=== PATIENT | female | born 1960 | race Caucasian/White ===

== ENCOUNTER 2023-12-23 08:26 | Outpatient (OUT) | payer OTHER, SELFPAY ==
--- NOTE | 2023-12-23 08:33 | MM_ITS ---
Patient Name: TAYLER BUTLER MR#: [id number] : 1960 Exam Date: 12/23/2023 Ordering Doctor: DR Fercho Villalta RADIOLOGY REPORT PROCEDURE: MM TOMOSYNTHESIS SCREENING BI COMPARISON: MG MAMM SCREEN ANDRÉS W CAD, 06/19/2019. MG MAMM SCREEN ANDRÉS W CAD, 01/13/2015. INDICATIONS: Screening Calculator Name NCI Breast Cancer Risk Assessment Tool 5 Year Breast Cancer Risk 2.10% Lifetime Breast Cancer Risk 9.40% Personal Breast Cancer No Personal Ovarian Cancer No Treatments None Family Cancers Mother with skin cancer at age 60. LOCATION: [facility] BREAST COMPOSITION: The breasts are heterogeneously dense,which may obscure small masses. FINDINGS: DIAGNOSTIC CATEGORY 2--BENIGN FINDING. NO CHANGE FROM COMPARISON. Scattered benign-appearing calcifications are present. Scattered benign-appearing lymph nodes are present. RIGHT BREAST: No significant suspicious finding. LEFT BREAST: No significant suspicious finding. RECOMMENDATIONS: ROUTINE MAMMOGRAM AND CLINICAL EVALUATION IN 12 MONTHS. PLEASE NOTE: A NORMAL MAMMOGRAM DOES NOT EXCLUDE THE POSSIBILITY OF BREAST CANCER. A CLINICALLY SUSPICIOUS PALPABLE LUMP SHOULD BE BIOPSIED. Dictated by: Zhao Myles MD on 12/23/2023 at 10:01 Approved by: Zhao Myles MD on 12/23/2023 at 10:03
== END 2023-12-23 08:27 | disposition home or self-care (01) ==
LOC: MAMMO 08:27
PROVIDERS: PCP Family Medicine; Visit Provider Family Medicine
DX: Z12.31 Encounter for screening mammogram for malignant neoplasm of breast (principal); Z80.8 Family history of malignant neoplasm of other organs or systems
CPT/HCPCS: 77063; 77067

== ENCOUNTER 2025-07-29 09:32 | Outpatient (OUT) | payer OTHER, SELFPAY ==
--- NOTE | 2025-07-29 09:37 | MM_ITS ---
Patient Name: TAYLER BUTLER MR#: [id number] : 1960 Exam Date: 07/29/2025 Ordering Doctor: DR MATY UP RADIOLOGY REPORT PROCEDURE: MM TOMOSYNTHESIS SCREENING BI COMPARISON: MM TOMOSYNTHESIS SCREENING BI, 12/23/2023. MG MAMM SCREEN ANDRÉS W CAD, 06/19/2019. MG MAMM SCREEN ANDRÉS W CAD, 07/21/2012. INDICATIONS: Screening Calculator Name NCI Breast Cancer Risk Assessment Tool 5 Year Breast Cancer Risk 2.20% Lifetime Breast Cancer Risk 8.90% Personal Breast Cancer No Personal Ovarian Cancer No Treatments None Family Cancers Mother with skin cancer at age 60. LOCATION: [facility] [place] BREAST COMPOSITION: The breasts are heterogeneously dense, which may obscure small masses. FINDINGS: RIGHT BREAST: No significant suspicious finding. LEFT BREAST: No significant suspicious finding. DIAGNOSTIC CATEGORY 1--NEGATIVE. RECOMMENDATIONS: ROUTINE MAMMOGRAM AND CLINICAL EVALUATION IN 12 MONTHS. Dictated by: Yariel Roberto DO on 07/29/2025 at 13:02 Approved by: Yariel Roberto DO on 07/29/2025 at 13:05
--- OUTSIDE RECORDS SUMMARY | 2025-07-29 09:43 | XMS_ITS | CCD ---
Author Organization [facility] CliniSytn Care Team Providers Care Sericulture Teacher Name Role Phone MARYJANE, DR BRANTLEY Primary Care Unavailable BENITO, DR COELLO Admitting Unavailable BENITO, DR COELLO Attending Unavailable BENITO, DR COELLO Consulting Unavailable KUNS, DR BRANTLEY Primary Care Unavailable BENITO, DR COELLO Admitting Unavailable BENITO, DR COELLO Attending Unavailable BENITO, DR COELLO Consulting Unavailable ZIEBER, DR HUMZA Zamarripa Consulting Unavailable KUNS, DR BRANTLEY Admitting Unavailable KUNS, DR BRANTLEY Attending Unavailable KUNS, DR BRANTLEY Consulting Unavailable KUNS, DR BRANTLEY Primary Care Unavailable PAY, DR RONQUILLO Attending Unavailable PAY, DR RONQUILLO Consulting Unavailable PAY, DR RONQUILLO Admitting Unavailable Bernot, Linda Consulting Unavailable Kuns, Fercho Unavailable Kuns, DO Fercho Primary Care Provider Maryjane, DO Brantley Attending Provider Kuns, Fercho Primary Care Unavailable Kuns, Fercho Attending Unavailable Kuns, Fercho Admitting Unavailable Kuns, Fercho Attending Unavailable Kuns, Fercho Admitting Unavailable Kuns, Fercho Primary Care Unavailable Kuns, Fercho Attending Unavailable Kuns, Fercho Admitting Unavailable Kuns, Fercho Primary Care Unavailable Kuns, Fercho Attending Unavailable Kuns, Fercho Admitting Unavailable Kuns, Fercho Primary Care Unavailable Kuns, DO Fercho Primary Care Provider Kuns, DO Brantley Attending Provider Kuns, DO Frecho Primary Care Provider Kuns, DO Fercho Attending Provider David Aguila MD, Dieter Unavailable Unavailabl alexandra Umana MD, Dieter Unavailable Unavailabl e David Aguila MD, Dieter Unavailable Unavailabl e David Aguila MD, Dieter Unavailable Unavailabl e David Aguila MD, Dieter Unavailable Unavailabl e David Aguila MD, Dieter Unavailable Unavailabl e David Aguila MD, Dieter Unavailable Unavailabl e David Aguila MD, Dieter Unavailable Unavailabl e David Aguila MD, Dieter Unavailable Unavailabl e Al Shweiki, Dieter Attending Unavailable Al Shweiki, Dieter Referring Unavailable Al Shweiki, Dieter Attending Unavailable Al Shweiki, Dieter Referring Unavailable Al Shweiki, Dieter Attending Unavailable Al Shweiki, Dieter Attending Unavailable Al Shweiki, Dieter Referring Unavailable Al Shweiki, Dieter Attending Unavailable Al Shweiki, Dieter Referring Unavailable Al Shweiki, Dieter Attending Unavailable Al Shweiki, Dieter Referring Unavailable Al Shweiki, Dieter Attending Unavailable Al Shweiki, Dieter Attending Unavailable Al Shweiki, Dieter Attending Unavailable Al Shweiki, Dieter Referring Unavailable Al Shweiki, Dieter Attending Unavailable Al Shweiki, Dieter Attending Unavailable Al Shweiki, Dieter Referring Unavailable Al Shweiki, Dieter Attending Unavailable Al Shweiki, Dieter Referring Unavailable Fercho Wesley DO Primary Care Provider Fercho Wesley DO Attending Provider Medications Current Medications MedicationDrug Class(es)DatesSig (Normalized)Sig (Original)AREDS 2 BUCCAL TABLET (9 sources)AREDS 2 BUCCAL TABLET - Activeascorbic acid 226 mg / beta carotene 28374 unt / cuprous oxide 0.8 mg / dl-alpha tocopheryl unt / zinc oxide 34.8 mg oral capsule (1 source)Vitamin CStart: 45-24-4290wwye 1 capsule by mouth twice daily azithromycin 250 mg oral tablet (3 sources)Macrolide AntimicrobialStart: 81-96-3831Ojzwahbbtsbh (Zithromax Z- Matthew) 250 mg tablet Active 0 PO .COMPLEX 6 June 29, 2025 12:00am For 250 mg dose pack: take 500 mg today (day 1), then 250 mg for 4 days (days 2-5) PO Complies with drug therapyStart: 22-08-1162Xxgrsuruk Z-Matthew 250 MG as directed Orally 27 Mar, 2023 Activebenzonatate 200 mg oral capsule (1 source)Non-narcotic AntitussiveStart: 43-26-3678mgey 1 capsule by mouth twice daily as needed for coughBenzonatate 200 mg capsule Active 200 MG PO Twice daily as needed for cough 60 June 29, 2025 12:00am Complies with drug therapy betamethasone 0.001 mg/mg topical ointment (2 sources)CorticosteroidStart: 87-30-4639Gtgzshjrpqpjb Valerate 0.1 % 1 application Externally Once a day Jan, Active4 ml bevacizumab 25 mg/ml injection (6 sources)Vascular Endothelial Growth Factor InhibitorStart: 59-02-0892Htojfff 25 mg/mL intravenous solution Direct Patient Administration Only - Active OUComment on above:OUBiotin (2 sources)Biotin ActiveCalcium + D 500-1000-40 MG-UNT-MCG (2 sources)Calcium + D 500-1000-40 MG-UNT-MCG as directed Orally Activecalcium carbonate 1500 mg / cholecalciferol 0.01 mg oral tablet (9 sources)Vitamin DCalcium 600 + D(3) 600 mg-10 mcg (400 unit) tablet - Active calcium carbonate 1250 mg / cholecalciferol 1000 unt / vitamin k 0.4 mg chewable tablet (6 sources)Vitamin DStart: 64-11-1113Dnkvcbz + D 500-1000-40 MG-UNT-MCG as directed Orally ActiveEye Vitamins - (4 sources)Eye Vitamins - as directed Orally ActivemethylPREDNISolone 4 mg oral tablet (1 source)CorticosteroidStart: 22-90-3192Fjulabjvrzpyyebeci (Medrol (Matthew)) 4 mg tablets,dose pack Active 4 MG PO As Directed June 29, 2025 12:00am medrol dose pack instructions Complies with drug therapyMulti For Her 18 mg iron-600 mcg-80 mcg tablet (9 sources)Multi For Her 18 mg iron-600 mcg-80 mcg tablet - ActiveMultiple Minerals - (4 sources)Multiple Minerals - as directed Orally ActiveMultivitamin (Daily Multi-Vitamin) tablet (4 sources)Start: 12-69-2283nrgb 1 tablet by mouth once dailyStart: 10-23-2023 take 1 tablet by mouth once dailyMultivitamin (Daily Multi-Vitamin) tablet Active 1 TAB PO Daily October 23, 2023 1:00amMultivitamin preparation (2 sources)Multi Vitamin Activenaproxen sodium 220 mg oral tablet (9 sources)Nonsteroidal Anti-inflammatory DrugStart: 10-23-2023 End: 37-57-3055msmf 1 tablet by mouth every twelve hours at mealtime as needed Naproxen Sodium 220 mg tablet Active 220 MG PO Every 12 hours June 29, 2025 1:09pm FreeTextSi tablet with food or milk as needed Orally every 12 hrs; Note: Source Status: Taking; Provider: Maryjane Brantley ( ) Complies with drug therapytake 1 tablet by mouth every twelve hours at mealtime as neededAleve 220 MG 1 tablet with food or milk as needed Orally every 12 hrs ActivepredniSONE 20 mg oral tablet (4 sources)Start: 78-62-1205oxgwpaULUC 20 MG 1 tablet with food or milk Orally one tab twice a day x 5 days , 1 tab every day x5 days for 10 days Oct, ActiveVitamins A,C,E-Rhxg-Mjvuzi (Icaps Areds) 4,296 mcg-226 mg-90 mg capsule (3 sources)Start: 16-84-7297javi 1 capsule by mouth twice dailyVitamins A,C,M-Hmcl-Tyepwq (Icaps Areds) 4,296 mcg-226 mg-90 mg capsule Active 1 CAP PO Twice dailyOctober 24, 2023 1:00am Completed/Discontinued Medications MedicationDrug Class(es)DatesSig (Normalized)Sig (Original)betamethasone 0.5 mg/ml / clotrimazole 10 mg/ml topical cream (8 sources)Azole Antifungal, CorticosteroidStart: 10-24-2023 End: 04-08-4024Frhziwdfaycj-Betamethasone 1-0.05 % cream Discontinued 1 APPLIC TOPICAL Twice daily 45 2 October 2:23pm December 19, 2023 12:07pm Rash Rash and other nonspecific skin eruptionphentermine hydrochloride 37.5 mg oral tablet (20 sources)Sympathomimetic Amine AnorecticStart: 10-24-2023 End: 80-75-1197gcvf 1 tablet by mouth once daily 30 minutes after breakfast Phentermine (Adipex-P) 37.5 mg tablet Discontinued 37.5 MG PO Daily 30 30 0 December 19, 2023 12:18pm January 21, 2024 2:47pm Class 1 obesity Obesity, unspecified must administer 30 minutes before or 1-2 hours after breakfast Problems Active Problems Problem ClassificationProblemDateDocumented DateEpisodic/ChronicAbdominal pain (9 sources)Right upper quadrant pain; Translations: [Right upper quadrant pain] Onset: 29-05-5912JktejidxPeofvyl dysrhythmias (1 source)Tachycardia, unspecified; Translations: [TACHYCARDIA UNSPECIFIED] Onset: 70-50-9747KwfwtmoqVyvdkmoe (20 sources)Age-related nuclear cataract, bilateral; Translations: [Age-related nuclear cataract of both eyes]Onset: 09-71-5379NbccxczNqfeyviz mellitus without complication (5 sources)Hyperglycemia, unspecified; Translations: [Hyperglycemia]Onset: 82-97-7038VtzjryafSjvtiftmj of lipid metabolism (15 sources)Hyperlipidemia; Translations: [Hyperlipidemia, unspecified]Onset: 98-20-5300SavhqfzLtutp and electrolyte disorders (1 source)Dehydration; Translations: [DEHYDRATION]Onset: 10-92-4034Huwkzixv Genitourinary symptoms and ill-defined conditions (2 sources)Female genital organ symptoms; Translations: [Unspecified condition associated with female genital organs and menstrual cycle]EpisodicImmunizations and screening for infectious disease (4 sources)Raised antibody titer; Translations: [RAISED ANTIBODY TITER]Onset: 41-81-9879IqbzxesfPpnyva and vomiting (1 source)Nausea; Translations: [NAUSEA]Onset: 01-93-2334BvqcibyuBbymttuow of unspecified nature or uncertain behavior (2 sources)Neoplasm of uncertain behavior of skin; Translations: [Neoplasm of uncertain behavior of skin]02-56-5588JsbpjbgrBoyjlzjfuzg deficiencies (10 sources)Vitamin D deficiency; Translations: [Vitamin D deficiency, unspecified]Onset: 61-67-1499ItaubjbQheiyardrjekjz (8 sources)Localized, primary osteoarthritis of the hand; Translations: [Bilateral primary osteoarthritis of first carpometacarpal joints]ChronicOther connective tissue disease (4 sources)Pain in right arm; Translations: [Pain in right arm]EpisodicOther connective tissue disease (4 sources)Pain in right foot; Translations: [Pain in right foot]EpisodicOther ear and sense organ disorders (1 source)Impacted cerumen, left earEpisodicOther eye disorders (14 sources)Vitreous degeneration, bilateral; Translations: [PVD (posterior vitreous detachment), both eyes]Onset: 45-94-9089UazwkhtFolms eye disorders (20 sources)Vitreous degeneration, right eyeChronicOther eye disorders (20 sources)Vitreous degenerationChronicOther liver diseases (4 sources)Steatosis of liver; Translations: [Fatty (change of) liver, not elsewhere classified]05-95-4907LgokpeqGkdkh liver diseases (2 sources)Fatty (change of) liver, not elsewhere classified; Translations: [Other chronic nonalcoholic liver disease]98-86-3072TisbariLjnro liver diseases (2 sources)Elevated liver enzymes level; Translations: [Abnormal levels of other serum enzymes]EpisodicOther liver diseases (3 sources)Abnormal levels of other serum enzymes; Translations: [Abnormal levels of other serum enzymes]Onset: 81-38-3372WetauwmeFavpa lower respiratory disease (3 sources)Shortness of breath; Translations: [SHORTNESS OF BREATH]Onset: 25-22-4839MkxudhxqGgurb lower respiratory disease (1 source)Dyspnea, unspecified; Translations: [DYSPNEA UNSPECIFIED]Onset: 47-21-3560NbemivgbNrjih lower respiratory disease (4 sources)Solitary nodule of lung; Translations: [Solitary pulmonary nodule] EpisodicOther lower respiratory disease (1 source)Cough; Translations: [Cough]09-47-8637BpdglqppSarae non-traumatic joint disorders (5 sources)Pain in right knee; Translations: [PAIN IN RIGHT KNEE]Onset: 54-21-7715RylrimhrJvgth non-traumatic joint disorders (1 source)Shoulder pain; Translations: [Pain in left shoulder]EpisodicOther non- traumatic joint disorders (3 sources)Pain in left shoulder; Translations: [Left shoulder pain]Episodic Other nutritional; endocrine; and metabolic disorders (11 sources)Obesity, unspecified; Translations: [Obesity, unspecified]Onset: 807171-49-7083GdfbcuuYemcc nutritional; endocrine; and metabolic disorders (4 sources)Obese class I; Translations: [Obesity, unspecified]32-22-4531Ajaiiob Other nutritional; endocrine; and metabolic disorders (3 sources)Obesity; Translations: [Obesity, unspecified]84-06-8131AdbxdmjMkbnu nutritional; endocrine; and metabolic disorders (3 sources)Body mass index (BMI) 29.0-29.9, adult; Translations: [Body Mass Index 29.0-29.9, adult]79-04-3184NufdrdwmTxzlv nutritional; endocrine; and metabolic disorders (5 sources)Overweight in adulthood with body mass index of 25 or more but less than 30; Translations: [Body mass index (BMI) 28.0-28.9, adult]12-19-2023 EpisodicOther nutritional; endocrine; and metabolic disorders (2 sources)Body mass index (BMI) 28.0-28.9, adult; Translations: [Body Mass Index 28.0-28.9, adult]08-05-6701QtthyvmfKayrj nutritional; endocrine; and metabolic disorders (3 sources)Body mass index (BMI) 27.0-27.9, adult; Translations: [Body Mass Index 27.0-27.9, adult]20-57-8034GdwmukqdVanec screening for suspected conditions (not mental disorders or infectious disease) (10 sources)Other specified abnormal findings of blood chemistry; Translations: [Patient encounter status]Onset: 56-40-9958BdddizwaEdkya skin disorders (4 sources)Eruption; Translations: [Rash and other nonspecific skin eruption] 72-50-5948KlmlckzcRobzh skin disorders (2 sources)Rash and other nonspecific skin eruption; Translations: [Rash and other nonspecific skin eruption]45-49-7199WatavjzcGmpxykja codes; unclassified (1 source)Family history of malignant neoplasm of digestive organsEpisodic Residual codes; unclassified (4 sources)Past history of procedure; Translations: [Personal history of other medical treatment]06-17-8674ClfxgzmkWfigfyq detachments; defects; vascular occlusion; and retinopathy (20 sources)Retinal edema; Translations: [Retinal edema]Onset: 12-15-2014 12-89-4222KcnhwqwNmmzrbv and strains (4 sources)Strain of other muscles, fascia and tendons at shoulder and upper arm level, unspecified arm, initial encounter; Translations: [Supraspinatus tendon tear]EpisodicUnclassified (8 sources)AMD (chief complaint)Onset: 12-01-2024 Resolved: 73-84-8493Axjkduvewkbh (12 sources)Exudative ARMD (chief complaint)Onset: 12-29-2024 Resolved: 57-80-1427Wzklgglsdmos (1 source)N94.9 - Unspecified condition associated with female genital organs and menstrual cycleViral infection (1 source)COVID-19; Translations: [COVID-19]Onset: 10-03-2021 Past or Other Problems Problem ClassificationProblemDateDocumented DateEpisodic/ChronicOther connective tissue disease (1 source)Pain in right foot; Translations: [PAIN IN RIGHT FOOT]Onset: 51-05-8400SacdzahyYnhgv non-traumatic joint disorders (3 sources)Pain in unspecified knee; Translations: [PAIN IN UNSPECIFIED KNEE] Onset: 37-27-1493DocqpeskErcji non-traumatic joint disorders (1 source)Effusion, right ankle; Translations: [EFFUSION RIGHT ANKLE]Onset: 32-84-5785TiehahiiVbbgi non-traumatic joint disorders (1 source)Pain in left knee; Translations: [PAIN IN LEFT KNEE]Onset: 02-15-2021 EpisodicUnclassified (1 source)Acute cough R05.1Unclassified (9 sources)retinal neovascularization with edema (chief complaint) reports no visual changes (chief complaint)Onset: 80-67-6579Exmplwujfgry (9 sources)CNV (chief complaint) stable vision (chief complaint)Onset: 19-75-8976Djmnloqzjuqt (9 sources)CNV (chief complaint) trouble focusing (chief complaint)Onset: 68-49-7942Qiavcwzvpdmu (9 sources)CNV (chief complaint) stable vision without distortion (chief complaint) stable vision (chief complaint)Onset: 30-22-2157Spesukrjvyhw (9 sources)CNV (chief complaint) reports no vision changes (chief complaint) Onset: 09-88-4197Qwkexuzusltu (9 sources)SRNVM (chief complaint) trouble focusing (chief complaint)Onset: 71-59-8308Netaaccuqubo (9 sources)CNV with retinal edema (chief complaint) increase in vision (chief complaint)Onset: 37-76-8106Bnipuiodhbxk (9 sources)CNV (chief complaint) no changes (chief complaint)Onset: 01-19-2015 Unclassified (9 sources)referred for SRNV (chief complaint) decreased vision (chief complaint)Onset: 12-15-2014 Results Test NameValueInterpretationReference RangeFacilityECG 12 lead ECGon 10-24-2023 ECG 12 [facility] [place] [address] [place] [address] Electrocardiograph Report Signed Patient: Meliza Best MR#: [id number] 95 : 1960 Acct:[id number] Age/Sex: 63 / F ADM Date: 10/24/23 Loc: EKGCAST Room: Type: [facility] Attending Dr: Fercho Wesley DO Ordering Provider: Fercho Wesley DO Date of Service: 10/24/2303/11/1308 ECG/ECG 12 lead ECG: E66.9 - Obesity, unspecified Copies to: Test Reason : Blood Pressure : / mmHG Vent. Rate : 070 BPM Atrial Rate : 070 BPM P-R Int : 164 ms QRS Dur : 084 ms QT Int : 392 ms P-R-T Axes : 076 085 074 degrees QTc Int : 423 ms Normal sinus rhythm Normal ECG No previous ECGs available Confirmed by Fercho Wesley ([id number]) on 10/24/2023 1:35:50 PM Referred By: Electronically Signed By:Fercho Wesley Transcribed By: MUS Signed By Fercho Wesley DO 10/24/23 1335NormSamaritan HospitalAlanine aminotransferase [Enzymatic activity/volume] in Serum or PlasmaOrdered By: Fercho Wesley on 06-21-0148HLG [Catalytic activity/Vol]36 U/L7-52[facility], IncAlbumin [Mass/volume] in Serum or Plasma by Bromocresol green (BCG) dye binding metho Ordered By: Fercho Wesley on 62-49-5084Swjrvjp BCG dye [Mass/Vol]4.3 g/dL3.5-5.7 [facility], IncAlkaline phosphatase [Enzymatic activity/volume] in Serum or PlasmaOrdered By: Fercho Wesley on 93-74-9331CUE [Catalytic activity/Vol]136 U/T57-858GxmpbojbkSelect Medical Specialty [facility], IncAspartate aminotransferase [Enzymatic activity/volume] in Serum or PlasmaOrdered By: Fercho Wesley on 51-11-9751SIG [Catalytic activity/Vol]25 U/L39-24AhbcajsdtSelect Medical Specialty Hospital [facility], IncBilirubin.total [Mass/volume] in Serum or PlasmaOrdered By: Fercho Wesley on 99-12-3529Rxktciycp [Mass/Vol]0.5 mg/dL0.3-1.0[facility], IncCalcium [Mass/volume] in Serum or PlasmaOrdered By: Fercho Wesley on 07-68-2431Xtqrjpf [Mass/Vol]9.9 mg/dL8.6-10.3FUniversity Hospitals Elyria Medical Center Carbon dioxide, total [Moles/volume] in Serum or PlasmaOrdered By: Fercho Wesley on 45-83-7342BR6 [Moles/Vol]31.5 mmol/L21.0-31.0[facility] Chloride [Moles/volume] in Serum or PlasmaOrdered By: Fercho Wesley on 10-18-2023 Chloride [Moles/Vol]104 mmol/V15-984XlcaxpuubSelect Medical Specialty Hospital - [place], IncCholesterol [Mass/volume] in Serum or PlasmaOrdered By: Fercho Wesley on 16-86-2381Tzbhaaglvfi [Mass/Vol]216 mg/mM901-932EjghtruyySelect Medical Specialty Hospital - [place], IncComment on above: Chol less than 200 mg/dl low riskChol 201-239 mg/dl borderline riskChol 240 mg/dl and greater high riskCholesterol in LDL Calc [Mass/Vol]Ordered By: Fercho Wesley on 00-58-2867Iexwpowntgs in LDL [Mass/Vol]134 mg/dL0-100[facility], IncComment on above:LDL ATP III CLASSIFICATIONLDL less than 100 mg/dL OptimalLDL 100-129 mg/dL Near or above amepzlyCSZ504-948 mg/dL Borderline highLDL 160-189 mg/dL HighLDL greater than 189 mg/dL Very highCholesterol in VLDL Calc [Mass/Vol]Ordered By: Fercho Wesley on 63-22-1527Ruqiytfplby in VLDL [Mass/Vol]26 mg/dLSelect Medical Specialty Hospital [facility], IncComprehensive Metabolic Panel on 83-46-5484Vchmdmy [Mass/Vol]4.3 g/dLNormal3.5-5.7FUniversity Hospitals Elyria Medical CenterComment on above:Order Comment: Reason for Exam Elevated liver enzymes Reason for Exam Hyperlipidemia, unspecified hyperlipidemia type;Elevated livPerformed By: #### CMP, LIPID #### [facility] [address] [id number] USAAlbumin/Globulin [Mass ratio]1.6 {ratio}NormalSelect Medical Specialty Hospital - [facility], IncComment on above:Order Comment: Reason for Exam Elevated liver enzymes Reason for Exam Hyperlipidemia, unspecified hyperlipidemia type;Elevated livPerformed By: #### CMP, LIPID #### [facility] [address] [place] [address] USAALP [Catalytic activity/Vol]136 U/MDvzi82-585QgihkusgdSelect Medical Specialty Hospital - [facility], IncComment on above:Order Comment: Reason for Exam Elevated liver enzymes Reason for Exam Hyperlipidemia, unspecified hyperlipidemia type;Elevated livPerformed By: #### CMP, LIPID #### [facility] [address] [place] [address] USAALT [Catalytic activity/Vol]36 U/LNormal7-52[facility], IncComment on above:Order Comment: Reason for Exam Elevated liver enzymes Reason for Exam Hyperlipidemia, unspecified hyperlipidemia type;Elevated livPerformed By: #### CMP, LIPID #### [facility] [address] [place] [address] USAAnion gap [Moles/Vol]9.1 mmol/LNormal6.0-15.0[facility], IncComment on above:Order Comment: Reason for Exam Elevated liver enzymes Reason for Exam Hyperlipidemia, unspecified hyperlipidemia type;Elevated livPerformed By: #### CMP, LIPID #### [facility] [address] [place] [address] USAAST [Catalytic activity/Vol]25 U/WOhvoyi59-01ObyghzlurSelect Medical Specialty Hospital - [facility], IncComment on above:Order Comment: Reason for Exam Elevated liver enzymes Reason for Exam Hyperlipidemia, unspecified hyperlipidemia type;Elevated livPerformed By: #### CMP, LIPID #### [facility] [address] [place] [address] USABilirubin [Mass/Vol]0.5 mg/dLNormal0.3-1.0[facility], IncComment on above:Order Comment: Reason for Exam Elevated liver enzymes Reason for Exam Hyperlipidemia, unspecified hyperlipidemia type;Elevated livPerformed By: #### CMP, LIPID #### [facility] [address] [place] [address] USACalcium [Mass/Vol]9.9 mg/dLNormal8.6-10.3FUniversity Hospitals Elyria Medical CenterComment on above:Order Comment: Reason for Exam Elevated liver enzymes Reason for Exam Hyperlipidemia, unspecified hyperlipidemia type;Elevated livPerformed By: #### CMP, LIPID #### [facility] [address] [place] [address] USAChloride [Moles/Vol]104 mmol/XUjxqnh96-113EcricvwyzSelect Medical Specialty Hospital - [facility], IncComment on above:Order Comment: Reason for Exam Elevated liver enzymes Reason for Exam Hyperlipidemia, unspecified hyperlipidemia type;Elevated livPerformed By: #### CMP, LIPID #### [facility] [address] [place] [address] USACO2 [Moles/Vol]31.5 mmol/LHigh21.0-31.0[facility], IncComment on above:Order Comment: Reason for Exam Elevated liver enzymes Reason for Exam Hyperlipidemia, unspecified hyperlipidemia type;Elevated livPerformed By: #### CMP, LIPID #### [facility] [address] [place] [address] USACreatinine [Mass/Vol]0.95 mg/dLNormal0.60-1.20[facility], IncComment on above:Order Comment: Reason for Exam Elevated liver enzymes Reason for Exam Hyperlipidemia, unspecified hyperlipidemia type;Elevated livPerformed By: #### CMP, LIPID #### [facility] [address] [id number] USAGFR/1.73 sq M.predicted MDRD (S/P/Bld) [Vol rate/Area] mL/min/{1.73_m2}NormalSelect Medical Specialty Hospital - [facility], IncComment on above:Order Comment: Reason for Exam Elevated liver enzymes Reason for Exam Hyperlipidemia, unspecified hyperlipidemia type;Elevated livPerformed By: #### CMP, LIPID #### [facility] [address] [place] [address] USAGlobulin (S) [Mass/Vol]2.7 g/dLNormalSelect Medical Specialty Hospital - [place], IncComment on above:Order Comment: Reason for Exam Elevated liver enzymes Reason for Exam Hyperlipidemia, unspecified hyperlipidemia type;Elevated livPerformed By: #### CMP, LIPID #### [facility] [address] [id number] USAGlucose [Mass/Vol]94 mg/mZNwsqsl24-343KwgwylhokSelect Medical Specialty Hospital - [facility], IncComment on above:Order Comment: Reason for Exam Elevated liver enzymes Reason for Exam Hyperlipidemia, unspecified hyperlipidemia type;Elevated livResult Comment: Random Glucose Reference Range is dependent on time and content of last meal. Glucose of more than 200 mg/dL in a nonstressed, ambulatory subject supports the diagnosis of Diabetes Mellitus. ADA recommended reference rangePerformed By: #### CMP, LIPID #### [facility] [address] [place] [address] USAPotassium [Moles/Vol]4.6 mmol/LNormal3.5-5.1FUniversity Hospitals Elyria Medical CenterComment on above:Order Comment: Reason for Exam Elevated liver enzymes Reason for Exam Hyperlipidemia, unspecified hyperlipidemia type;Elevated livPerformed By: #### CMP, LIPID #### [facility] [address] [id number] USAProtein [Mass/Vol]7.0 g/dLNormal6.4-8.9[facility], IncComment on above:Order Comment: Reason for Exam Elevated liver enzymes Reason for Exam Hyperlipidemia, unspecified hyperlipidemia type;Elevated livPerformed By: #### CMP, LIPID #### [facility] [address] [id number] USASodium [Moles/Vol]140 mmol/LIekyuj603-295EpvpnfggeSelect Medical Specialty Hospital [facility], IncComment on above:Order Comment: Reason for Exam Elevated liver enzymes Reason for Exam Hyperlipidemia, unspecified hyperlipidemia type;Elevated livPerformed By: #### CMP, LIPID #### [facility] [address] [phone] USAUrea nitrogen [Mass/Vol]23 mg/dLNormal7-25[facility], IncComment on above:Order Comment: Reason for Exam Elevated liver enzymes Reason for Exam Hyperlipidemia, unspecified hyperlipidemia type;Elevated livPerformed By: #### CMP, LIPID #### [facility] [address] [place] [address] USACreatinine [Mass/volume] in Serum or PlasmaOrdered By: Fercho Wesley on 82-67-7425Ypnxwwbcjw [Mass/Vol]0.95 mg/dL0.60-1.20[facility], IncGlobulin Calc (S) [Mass/Vol]Ordered By: Fercho Wesley on 45-34-1689Wkaprsdn (S) [Mass/Vol]2.7 g/dLSelect Medical Specialty Hospital [facility], Inc Glucose [Mass/volume] in Serum or PlasmaOrdered By: Fercho Wesley on 10-18-2023 Glucose [Mass/Vol]94 mg/fM80-744ZqvuzgogmSelect Medical Specialty Hospital [facility], IncComment on above:ADA recommended reference rangeRandom Glucose Reference Range is dependent on time and content of last meal. Glucose of more than 200 mg/dL in a nonstressed, ambulatory subject supports the diagnosisof Diabetes Mellitus.Lipid Panelon 20-36-8816Hvhvibawmch [Mass/Vol]216 mg/kZWchx353-770CsnaoccbySelect Medical Specialty Hospital [facility], IncComment on above:Order Comment: Reason for Exam Elevated liver enzymes Reason for Exam Hyperlipidemia, unspecified hyperlipidemia type;Elevated livResult Comment: Chol less than 200 mg/dl low risk Chol 201-239 mg/dl borderline risk Chol 240 mg/dl and greater high riskPerformed By: #### CMP, LIPID #### [facility] [address] [place] [address] USACholesterol in HDL [Mass/Vol]56 mg/aWPdcajx23-65IsxxnrujxSelect Medical Specialty Hospital [facility], IncComment on above:Order Comment: Reason for Exam Elevated liver enzymes Reason for Exam Hyperlipidemia, unspecified hyperlipidemia type;Elevated livResult Comment: HDL CHOL ATP-III CLASSIFICATION Cardiovascular Risk HDL > or equal to 60 mg/dL LOW HDL < 40 mg/dL HIGHPerformed By: #### CMP, LIPID #### [facility] [address] [place] [address] USACholesterol.total/Cholesterol in HDL [Mass ratio]3.9 {ratio}Normal<5.0[facility], IncComment on above:Order Comment: Reason for Exam Elevated liver enzymes Reason for Exam Hyperlipidemia, unspecified hyperlipidemia type;Elevated livResult Comment: PERFORMED BY: [address] [address] PATHOLOGIST HOUSEKEEPING WORKER MARCO VILLALPANDO M.D.Performed By: #### CMP, LIPID #### [facility] [address] [place] [address] USALDL Cholesterol,Hamcgbqwtu057 mg/dLHigh0-100[facility], IncComment on above:Order Comment: Reason for Exam Elevated liver enzymes Reason for Exam Hyperlipidemia, unspecified hyperlipidemia type;Elevated livResult Comment: LDL ATP III CLASSIFICATION LDL less than 100 mg/dL Optimal LDL 100-129 mg/dL Near or above optimal LDL 130-159 mg/dL Borderline high LDL 160-189 mg/dL High LDL greater than 189 mg/dL Very highPerformed By: #### CMP, LIPID #### [facility] [address] [place] [address] USATriglyceride w/Lmxmdw771 mg/dLNormal0-149[facility], IncComment on above:Order Comment: Reason for Exam Elevated liver enzymes Reason for Exam Hyperlipidemia, unspecified hyperlipidemia type;Elevated livResult Comment: TRIG ATP III CLASSIFICATION TRIG less than 150 mg/dL Normal TRIG 150-199 mg/dL Borderline high TRIG 200-500 mg/dL High TRIG greater than 500 mg/dL Very high Standard traceable to the Center for Disease Conrtrol and Prevention (CDC) test method.Performed By: #### CMP, LIPID #### [facility] [address] [place] [address] USAVLDL DPISGKOQGTG84 mg/dLNoPremier Health Atrium Medical CenterComment on above:Order Comment: Reason for Exam Elevated liver enzymes Reason for Exam Hyperlipidemia, unspecified hyperlipidemia type;Elevated livPerformed By: #### CMP, LIPID #### [facility] [address] [place] [address] USANo Panel InformationOrdered By: Fercho Wesley on 10-18-2023 Estimated GFR (CKD-EPI)> 60.0 mL/MinSelect Medical Specialty Hospital - [facility], IncPharmacy Creatinine Clearance (ChemN/AFUniversity Hospitals Elyria Medical CenterPotassium [Moles/volume] in Serum or PlasmaOrdered By: Fercho Wesley on 05-24-6828Furdkwvzg [Moles/Vol]4.6 mmol/L3.5-5.1FUniversity Hospitals Elyria Medical CenterProtein [Mass/volume] in Serum or PlasmaOrdered By: Fercho Wesley on 34-49-3626Uxaxhdv [Mass/Vol]7.0 g/dL6.4-8.9[facility] Citizens Hospitalerum or plasma albumin/globulin mass ratioOrdered By: Fercho Wesley on 22-80-0694Iodaqed/Globulin [Mass ratio]1.6 {ratio}[facility] Hospitalerum or plasma anion gap determinationOrdered By: Fercho Wesley on 74-69-3414Fxrgo gap [Moles/Vol]9.1 mmol/L6.0-15.0[facility] Citizens Hospitalerum or plasma high density lipoprotein (HDL) cholesterol measurementOrdered By: Fercho Wesley on 10-18-2023 Cholesterol in HDL [Mass/Vol]56 mg/tJ52-94EqxdwnrqtSelect Medical Specialty Hospital [facility], Inc Comment on above:HDL CHOL ATP-III CLASSIFICATION Cardiovascular RiskHDL > or equal to 60 mg/dL LOWHDL < 40 mg/dL HIGHSerum or plasma total cholesterol/high density lipoprotein (HDL) cholesterol mass ratOrdered By: Fercho Wesley on 69-61-9057Whvgoljtmjr.total/Cholesterol in HDL [Mass ratio]3.9 {ratio}<5.0 [facility] Hospitalodium [Moles/volume] in Serum or PlasmaOrdered By: Fercho Wesley on 10-36-7576Boehab [Moles/Vol]140 mmol/K318-478QqpbvlbghSelect Medical Specialty Hospital [facility], IncTriglyceride [Mass/volume] in Serum or PlasmaOrdered By: Fercho Wesley on 55-17-1268Smftilqdqaiu [Mass/Vol]132 mg/dL0-149[facility], IncComment on above:TRIG ATP III CLASSIFICATIONTRIG less than 150 mg/dL NormalTRIG 150-199 mg/dL Borderline highTRIG 200-500 mg/dL High TRIG greater than 500 mg/dL Very highStandard traceable to the Center for Disease Co nrtrol and Prevention (CDC) test method.Urea nitrogen [Mass/volume] in Serum or PlasmaOrdered By: Fercho Wesley on 25-13-5987Tjky nitrogen [Mass/Vol]23 mg/dL7-25 [facility], IncUS abdomen limitedon 02-30-5706VR abdomen limitedCOMMUNITY MEMORIAL [facility] [place] [address] [place] [address] Ultrasound Report Signed Patient: Meliza Best MR#: [id number] 95 : 1960 Acct:[id number] Age/Sex: 63 / F ADM Date: 08/17/23 Loc: Room: Type: [facility] Attending Dr: Fercho Wesley DO Ordering Provider: Fercho Wesley DO Date of Service: 08/17/23 US/US abdomen limited: Hyperlipidemia, unspecified hyperlipidemia type;Elevated fatoumata Copies to: Fercho Wesley DO LIMITED ABDOMINAL ULTRASOUND WITH ASSESSMENT OF RIGHT UPPER QUADRANT HISTORY: Hyperlipidemia. COMPARISON: None Negative ultrasound Quintana's sign reported. COMMON BILE DUCT: Normal caliber. No intraluminal abnormality. LIVER CONTOUR: Normal. LIVER PARENCHYMA: Mild hepatic steatosis. HEPATIC LESION: None INTRAHEPATIC BILIARY DUCTAL DILATATION No ductal dilatation identified. GALLSTONES: No shadowing gallstones. GALLBLADDER SLUDGE: No gallbladder sludge. GALLBLADDER WALL: Normal thickness PERICHOLECYSTIC FLUID: None Pancreas: Visualized portions unremarkable. PORTAL VEIN: Normal blood flow. Liver size: Normal No RIGHT hydronephrosis identified. US/US abdomen limited IMPRESSION: Mild hepatic steatosis. Impression dictated by: Yariel Roberto M.D.08/17/2023 2:00 PM Dictation Location: [place] [address] Tech: Jaja Chacorta Transcribed By: [facility] 08/17/23 1400 Dictated By: Yariel Roberto DO 08/17/23 1358 Signed By: 08/17/23 1400NoPremier Health Atrium Medical CenterUrine 10 SGon 07-23-2023 Albumin DL <= 20 mg/L (U) [Mass/Vol]NegativeNoMedius Other pH (U)6.0 [pH][employer] Other Urine 10 SGNegativeNoRostelecom Other Urine 10 SG1.020NoRostelecom Other Urine 10 SG1.0NoRostelecom Other A1C with Estimated Average Gluon 82-59-5900Yywtalz [Mass/Vol]120 mg/dLNormalSelect Medical Specialty Hospital [facility], IncComment on above:Order Comment: Reason for Exam HyperglycemiaResult Comment: PERFORMED BY: [place] [id number] PATHOLOGIST HOUSEKEEPING WORKER MARCO VILLALPANDO M.D.Performed By: #### CMP, A1C WTH eA, CBC, LIPID, TSH3, [id number] #### [facility] [address] [id number] QTBQeJ9z (Bld) [Mass fraction]5.8 %High4.3-5.6FUniversity Hospitals Elyria Medical CenterComment on above:Order Comment: Reason for Exam HyperglycemiaResult Comment: Increased risk for diabetes: 5.7 - 6.4 diabetes: >6.4 glycemic control for adults with diabetes: <7.0Performed By: #### CMP, A1C WTH eA, CBC, LIPID, TSH3, [id number] #### [facility] [address] [phone] USAAlanine aminotransferase [Enzymatic activity/volume] in Serum or PlasmaOrdered By: Fercho Wesley on 38-91-5175WHB [Catalytic activity/Vol] 59 U/L7-52[facility], IncAlbumin [Mass/volume] in Serum or Plasma by Bromocresol green (BCG) dye binding methoOrdered By: Fercho Wesley on 07-68-5300Jxsvtcd BCG dye [Mass/Vol]4.3 g/dL3.5-5.7FUniversity Hospitals Elyria Medical CenterAlkaline phosphatase [Enzymatic activity/volume] in Serum or PlasmaOrdered By: Fercho Wesley on 44-18-8446UBK [Catalytic activity/Vol]159 U/A70-381LobemandaSelect Medical Specialty Hospital - [facility], IncAspartate aminotransferase [Enzymatic activity/volume] in Serum or PlasmaOrdered By: Fercho Wesley on 53-13-8395VOI [Catalytic activity/Vol] 28 U/D97-64BqdfbxmvaSelect Medical Specialty Hospital - [facility], IncBasophils Auto (Bld) [#/Vol]Ordered By: Fercho Wesley on 02-83-6351Biqrpbkwy (Bld) [#/Vol]0.0 10*3/uL0.0-0.2FUniversity Hospitals Elyria Medical CenterBasophils/100 WBC Auto (Bld)Ordered By: Fercho Wesley on 33-26-2523Bmmpgjzcn/100 WBC (Bld)0.6 %.[facility] Inc Bilirubin.total [Mass/volume] in Serum or PlasmaOrdered By: Fercho Wesley on 33-84-8006Wwzcmooau [Mass/Vol]0.6 mg/dL0.3-1.0[facility] Calcium [Mass/volume] in Serum or PlasmaOrdered By: Fercho Wesley on 07-19-2023 Calcium [Mass/Vol]10.1 mg/dL8.6-10.3FUniversity Hospitals Elyria Medical CenterCarbon dioxide, total [Moles/volume] in Serum or PlasmaOrdered By: Fercho Wesley on 12-60-9201LM6 [Moles/Vol]31.1 mmol/L21.0-31.0[facility] Inc Chloride [Moles/volume] in Serum or PlasmaOrdered By: Fercho Wesley on 07-19-2023 Chloride [Moles/Vol]106 mmol/V04-755OcgyohoztSelect Medical Specialty Hospital - Board[facility], IncCholesterol [Mass/volume] in Serum or PlasmaOrdered By: Fercho Wesley on 28-43-0652Xchplwzthit [Mass/Vol]226 mg/aQ740-184KlvpthqpdSelect Medical Specialty Hospital - [facility], IncComment on above: Chol less than 200 mg/dl low riskChol 201-239 mg/dl borderline riskChol 240 mg/dl and greater high riskCholesterol in LDL Calc [Mass/Vol]Ordered By: Fercho Wesley on 57-60-8971Ivjquejtdin in LDL [Mass/Vol]144 mg/dL0-100[facility], IncComment on above:LDL ATP III CLASSIFICATIONLDL less than 100 mg/dL OptimalLDL 100-129 mg/dL Near or above aqsjskeRTH438-865 mg/dL Borderline highLDL 160-189 mg/dL HighLDL greater than 189 mg/dL Very highCholesterol in VLDL Calc [Mass/Vol]Ordered By: Fercho Wesley on 77-76-4553Jxhksuwygbu in VLDL [Mass/Vol]22 mg/dLSelect Medical Specialty Hospital - [facility], IncComplete Blood Count Auto Diffon 01-85-5458Qwvsyztif (Bld) [#/Vol]0.0 10*3/uLNormal0.0-0.2FUniversity Hospitals Elyria Medical CenterComment on above:Order Comment: Reason for Exam Hyperlipidemia, unspecified hyperlipidemia typeResult Comment: PERFORMED BY: [place] [id number] PATHOLOGIST HOUSEKEEPING WORKER MARCO VILLALPANDO M.D.Performed By: #### CMP, A1C WTH eA, CBC, LIPID, TSH3, [id number] #### [facility] [address] [place] [address] USABasophils/100 WBC (Bld)0.6 %Normal.[facility], IncComment on above:Order Comment: Reason for Exam Hyperlipidemia, unspecified hyperlipidemia typePerformed By: #### CMP, A1C WTH eA, CBC, LIPID, TSH3, [id number] #### [facility] [address] [place] [address] USAEosinophils (Bld) [#/Vol]0.3 10*3/uLNormal0.0-0.45 [facility], IncComment on above:Order Comment: Reason for Exam Hyperlipidemia, unspecified hyperlipidemia typePerformed By: #### CMP, A1C WTH eA, CBC, LIPID, TSH3, [id number] #### [facility] [address] [phone] USAEosinophils/100 WBC (Bld)4.5 %Normal.[facility], IncComment on above:Order Comment: Reason for Exam Hyperlipidemia, unspecified hyperlipidemia typePerformed By: #### CMP, A1C WTH eA, CBC, LIPID, TSH3, [id number] #### [facility] [address] [place] [address] USAErythrocyte distribution width (RBC) [Ratio]14.3 %Normal 11.9-15.3FUniversity Hospitals Elyria Medical CenterComment on above:Order Comment: Reason for Exam Hyperlipidemia, unspecified hyperlipidemia typePerformed By: #### CMP, A1C WTH eA, CBC, LIPID, TSH3, [id number] #### [facility] [address] [place] [address] USAHematocrit (Bld) [Volume fraction]41.8 %Unirjp37.0-46.4 [facility], IncComment on above:Order Comment: Reason for Exam Hyperlipidemia, unspecified hyperlipidemia typePerformed By: #### CMP, A1C WTH eA, CBC, LIPID, TSH3, [id number] #### [facility] [address] [phone] USAHemoglobin (Bld) [Mass/Vol]13.6 g/gAJgfpcv99.8-15.4 [facility], IncComment on above:Order Comment: Reason for Exam Hyperlipidemia, unspecified hyperlipidemia typePerformed By: #### CMP, A1C WTH eA, CBC, LIPID, TSH3, [id number] #### [facility] [address] [place] [address] USALymphocytes (Bld) [#/Vol]2.3 10*3/uLNormal1.00-4.8 [facility], IncComment on above:Order Comment: Reason for Exam Hyperlipidemia, unspecified hyperlipidemia typePerformed By: #### CMP, A1C WTH eA, CBC, LIPID, TSH3, [id number] #### [facility] [address] [place] [address] USALymphocytes/100 WBC (Bld)33.9 %Normal.[facility], IncComment on above:Order Comment: Reason for Exam Hyperlipidemia, unspecified hyperlipidemia typePerformed By: #### CMP, A1C WTH eA, CBC, LIPID, TSH3, [id number] #### [facility] [address] [place] [address] USAMCH (RBC) [Entitic mass]28.5 cfGukwkz29.7-34.3FUniversity Hospitals Elyria Medical CenterComment on above:Order Comment: Reason for Exam Hyperlipidemia, unspecified hyperlipidemia typePerformed By: #### CMP, A1C WTH eA, CBC, LIPID, TSH3, [id number] #### [facility] [address] [place] [address] USAMCV (RBC) [Entitic vol]87.7 yTAjmjde88-993MovlmdjjvSelect Medical Specialty Hospital - [facility], IncComment on above:Order Comment: Reason for Exam Hyperlipidemia, unspecified hyperlipidemia typePerformed By: #### CMP, A1C WTH eA, CBC, LIPID, TSH3, [id number] #### [facility] [address] [place] [address] USAMean Corpuscular HGB Conc32.5 g/mVDkhnqd21.0-35.0[facility], IncComment on above:Order Comment: Reason for Exam Hyperlipidemia, unspecified hyperlipidemia typePerformed By: #### CMP, A1C WTH eA, CBC, LIPID, TSH3, [id number] #### [facility] [address] [place] [address] USAMonocytes (Bld) [#/Vol]0.6 10*3/uLNormal0.0-0.8[facility], IncComment on above:Order Comment: Reason for Exam Hyperlipidemia, unspecified hyperlipidemia typePerformed By: #### CMP, A1C WTH eA, CBC, LIPID, TSH3, [id number] #### [facility] [address] [place] [address] USAMonocytes/100 WBC (Bld)8.7 %Normal.[facility], IncComment on above:Order Comment: Reason for Exam Hyperlipidemia, unspecified hyperlipidemia typePerformed By: #### CMP, A1C WTH eA, CBC, LIPID, TSH3, [id number] #### [facility] [address] [place] [phone] USANeutrophils (Bld) [#/Vol]3.5 10*3/uLNormal1.8-7.7FUniversity Hospitals Elyria Medical CenterComment on above:Order Comment: Reason for Exam Hyperlipidemia, unspecified hyperlipidemia typePerformed By: #### CMP, A1C WTH eA, CBC, LIPID, TSH3, [id number] #### [facility] [address] [place] [address] USANeutrophils/100 WBC (Bld)52.3 %Normal.[facility], IncComment on above:Order Comment: Reason for Exam Hyperlipidemia, unspecified hyperlipidemia typePerformed By: #### CMP, A1C WTH eA, CBC, LIPID, TSH3, [id number] #### [facility] [address] [place] [address] USANRBC%0.1 /100{WBC}Normal0-0.5FUniversity Hospitals Elyria Medical CenterComment on above:Order Comment: Reason for Exam Hyperlipidemia, unspecified hyperlipidemia typePerformed By: #### CMP, A1C WTH eA, CBC, LIPID, TSH3, [id number] #### [facility] [address] [place] [address] USAPlatelet mean volume (Bld) [Entitic vol]10.1 fLNormal 6.3-10.7FUniversity Hospitals Elyria Medical CenterComment on above:Order Comment: Reason for Exam Hyperlipidemia, unspecified hyperlipidemia typePerformed By: #### CMP, A1C WTH eA, CBC, LIPID, TSH3, [id number] #### [facility] [address] [place] [address] USAPlatelets (Bld) [#/Vol]247 10*3/nJZsnngy451-201XifxjhcyhSelect Medical Specialty Hospital - [facility], IncComment on above:Order Comment: Reason for Exam Hyperlipidemia, unspecified hyperlipidemia typePerformed By: #### CMP, A1C WTH eA, CBC, LIPID, TSH3, [id number] #### [facility] [address] [place] [phone] USARBC (Bld) [#/Vol]4.77 10*6/uLNormal3.60-5.00[facility], IncComment on above:Order Comment: Reason for Exam Hyperlipidemia, unspecified hyperlipidemia typePerformed By: #### CMP, A1C WTH eA, CBC, LIPID, TSH3, [id number] #### [facility] [address] [place] [address] USAWBC (Bld) [#/Vol]6.7 10*3/uLNormal3.8-11.6FUniversity Hospitals Elyria Medical CenterComment on above:Order Comment: Reason for Exam Hyperlipidemia, unspecified hyperlipidemia typePerformed By: #### CMP, A1C WTH eA, CBC, LIPID, TSH3, [id number] #### [facility] [address] [place] [address] USAComprehensive Metabolic Panelon 31-39-6022Jxvpucw [Mass/Vol]4.3 g/dLNormal3.5-5.7FUniversity Hospitals Elyria Medical CenterComment on above:Order Comment: Reason for Exam Hyperlipidemia, unspecified hyperlipidemia type Reason for Exam Vitamin D deficiencyPerformed By: #### CMP, A1C WTH eA, CBC, LIPID, TSH3, [id number] #### [facility] [address] [place] [address] USAAlbumin/Globulin [Mass ratio]1.5 {ratio}[facility]zer Health SystemComment on above:Order Comment: Reason for Exam Hyperlipidemia, unspecified hyperlipidemia type Reason for Exam Vitamin D deficiencyPerformed By: #### CMP, A1C WTH eA, CBC, LIPID, TSH3, [id number] #### [facility] [address] [place] [address] USAALP [Catalytic activity/Vol]159 U/LPixo24-862XvxajuqtpSelect Medical Specialty Hospital - [facility], IncComment on above:Order Comment: Reason for Exam Hyperlipidemia, unspecified hyperlipidemia type Reason for Exam Vitamin D deficiencyPerformed By: #### CMP, A1C WTH eA, CBC, LIPID, TSH3, [id number] #### [facility] [address] [place] [address] USAALT [Catalytic activity/Vol]59 U/LHigh7-52[facility], IncComment on above:Order Comment: Reason for Exam Hyperlipidemia, unspecified hyperlipidemia type Reason for Exam Vitamin D deficiencyPerformed By: #### CMP, A1C WTH eA, CBC, LIPID, TSH3, [id number] #### [facility] [address] [place] [address] USAAnion gap [Moles/Vol]9.2 mmol/LNormal6.0-15.0[facility], IncComment on above:Order Comment: Reason for Exam Hyperlipidemia, unspecified hyperlipidemia type Reason for Exam Vitamin D deficiencyPerformed By: #### CMP, A1C WTH eA, CBC, LIPID, TSH3, [id number] #### [facility] [address] [place] [phone] USAAST [Catalytic activity/Vol]28 U/XLcaisu97-56BkbxwrgybSelect Medical Specialty Hospital [facility], IncComment on above:Order Comment: Reason for Exam Hyperlipidemia, unspecified hyperlipidemia type Reason for Exam Vitamin D deficiencyPerformed By: #### CMP, A1C WTH eA, CBC, LIPID, TSH3, [id number] #### [facility] [address] [place] [address] USABilirubin [Mass/Vol]0.6 mg/dLNormal0.3-1.0[facility], IncComment on above:Order Comment: Reason for Exam Hyperlipidemia, unspecified hyperlipidemia type Reason for Exam Vitamin D deficiencyPerformed By: #### CMP, A1C WTH eA, CBC, LIPID, TSH3, [id number] #### [facility] [address] [place] [phone] USACalcium [Mass/Vol]10.1 mg/dLNormal8.6-10.3FUniversity Hospitals Elyria Medical CenterComment on above:Order Comment: Reason for Exam Hyperlipidemia, unspecified hyperlipidemia type Reason for Exam Vitamin D deficiencyPerformed By: #### CMP, A1C WTH eA, CBC, LIPID, TSH3, [id number] #### [facility] [address] [place] [address] USAChloride [Moles/Vol]106 mmol/QFgatjb71-436HqsqsbongSelect Medical Specialty Hospital - [facility], IncComment on above:Order Comment: Reason for Exam Hyperlipidemia, unspecified hyperlipidemia type Reason for Exam Vitamin D deficiencyPerformed By: #### CMP, A1C WTH eA, CBC, LIPID, TSH3, [id number] #### [facility] [address] [place] [address] USACO2 [Moles/Vol]31.1 mmol/LHigh21.0-31.0[facility], IncComment on above:Order Comment: Reason for Exam Hyperlipidemia, unspecified hyperlipidemia type Reason for Exam Vitamin D deficiencyPerformed By: #### CMP, A1C WTH eA, CBC, LIPID, TSH3, [id number] #### [facility] [address] [place] [address] USACreatinine [Mass/Vol]0.90 mg/dLNormal0.60-1.20[facility], IncComment on above:Order Comment: Reason for Exam Hyperlipidemia, unspecified hyperlipidemia type Reason for Exam Vitamin D deficiencyPerformed By: #### CMP, A1C WTH eA, CBC, LIPID, TSH3, [id number] #### [facility] [address] [place] [phone] USAGFR/1.73 sq M.predicted MDRD (S/P/Bld) [Vol rate/Area] mL/min/{1.73_m2}NormalSelect Medical Specialty Hospital - [facility], IncComment on above:Order Comment: Reason for Exam Hyperlipidemia, unspecified hyperlipidemia type Reason for Exam Vitamin D deficiencyPerformed By: #### CMP, A1C WTH eA, CBC, LIPID, TSH3, [id number] #### [facility] [address] [place] [phone] USAGlobulin (S) [Mass/Vol]2.9 g/dLNormalSelect Medical Specialty Hospital - [facility], IncComment on above:Order Comment: Reason for Exam Hyperlipidemia, unspecified hyperlipidemia type Reason for Exam Vitamin D deficiencyPerformed By: #### CMP, A1C WTH eA, CBC, LIPID, TSH3, [id number] #### [facility] [address] [place] [address] USAGlucose [Mass/Vol]97 mg/bGIssxdi85-936DnpujzwvdSelect Medical Specialty Hospital - Boardman, IncComment on above:Order Comment: Reason for Exam Hyperlipidemia, unspecified hyperlipidemia type Reason for Exam Vitamin D deficiencyResult Comment: Random Glucose Reference Range is dependent on time and content of last meal. Glucose of more than 200 mg/dL in a nonstressed, ambulatory subject supports the diagnosis of Diabetes Mellitus. ADA recommended reference rangePerformed By: #### CMP, A1C WTH eA, CBC, LIPID, TSH3, [id number] #### [facility] [address] [id number] USAPotassium [Moles/Vol]4.3 mmol/LNormal3.5-5.1FUniversity Hospitals Elyria Medical CenterComment on above:Order Comment: Reason for Exam Hyperlipidemia, unspecified hyperlipidemia type Reason for Exam Vitamin D deficiencyPerformed By: #### CMP, A1C WTH eA, CBC, LIPID, TSH3, [id number] #### [facility] [address] [place] [address] USAProtein [Mass/Vol]7.2 g/dLNormal6.4-8.9[facility], IncComment on above:Order Comment: Reason for Exam Hyperlipidemia, unspecified hyperlipidemia type Reason for Exam Vitamin D deficiencyPerformed By: #### CMP, A1C WTH eA, CBC, LIPID, TSH3, [id number] #### [facility] [address] [place] [address] USASodium [Moles/Vol]142 mmol/STaatlw397-022JqshhfehtSelect Medical Specialty Hospital - [facility], IncComment on above:Order Comment: Reason for Exam Hyperlipidemia, unspecified hyperlipidemia type Reason for Exam Vitamin D deficiencyPerformed By: #### CMP, A1C WTH eA, CBC, LIPID, TSH3, [id number] #### [facility] [address] [id number] USAUrea nitrogen [Mass/Vol]21 mg/dLNormal7-25[facility], IncComment on above:Order Comment: Reason for Exam Hyperlipidemia, unspecified hyperlipidemia type Reason for Exam Vitamin D deficiencyPerformed By: #### CMP, A1C WTH eA, CBC, LIPID, TSH3, [id number] #### [facility] [address] [id number] USACreatinine [Mass/volume] in Serum or PlasmaOrdered By: Fercho Wesley on 20-79-5492Jwahuprvyg [Mass/Vol]0.90 mg/dL0.60-1.20[facility], IncEosinophils Auto (Bld) [#/Vol]Ordered By: Fercho Wesley on 99-15-5677Sqvgssgafhi (Bld) [#/Vol]0.3 10*3/uL0.0-0.45[facility], IncEosinophils/100 WBC Auto (Bld)Ordered By: Fercho Wesley on 07-19-2023 Eosinophils/100 WBC (Bld)4.5 %.[facility], IncErythrocyte distribution width Auto (RBC) [Ratio]Ordered By: Fercho Wesley on 07-19-2023 Erythrocyte distribution width (RBC) [Ratio]14.3 %11.9-15.3FUniversity Hospitals Elyria Medical CenterGlobulin Calc (S) [Mass/Vol]Ordered By: Fercho Wesley on 07-19-2023 Globulin (S) [Mass/Vol]2.9 g/dLSelect Medical Specialty Hospital - Board[facility], IncGlucose [Mass/volume] in Serum or PlasmaOrdered By: Fercho Wesley on 24-07-0200Icmtemz [Mass/Vol]97 mg/oX66-168UzrgyzukwSelect Medical Specialty Hospital - Board[facility], IncComment on above:ADA recommended reference rangeRandom Glucose Reference Range is dependent on time and content of last meal. Glucose of more than 200 mg/dL in a nonstressed, ambulatory subject supports the diagnosisof Diabetes Mellitus.Glucose mean value [Mass/volume] in Blood Estimated from glycated hemoglobinOrdered By: Fercho Wesley on 97-16-7169Anpshzr glucose Estimated from glycated hemoglobin (Bld) [Mass/Vol]120 mg/dLSelect Medical Specialty Hospital - Board[facility], IncHematocrit Auto (Bld) [Volume fraction]Ordered By: Fercho Wesley on 41-86-0599Rhagsrprqz (Bld) [Volume fraction]41.8 %34.0-46.4FUniversity Hospitals Elyria Medical CenterHemoglobin A1c percentageOrdered By: Fercho Wesley on 90-20-6221AzP1b (Bld) [Mass fraction]5.8 % 4.3-5.6FUniversity Hospitals Elyria Medical CenterComment on above:Increased risk for diabetes: 5.7 - 6.4diabetes: >6.4glycemic control for adults with diabetes: &l t;7.0Hemoglobin [Mass/volume] in BloodOrdered By: Fercho Wesley on 07-19-2023 Hemoglobin (Bld) [Mass/Vol]13.6 g/dL11.8-15.4FUniversity Hospitals Elyria Medical Center Leukocytes [#/volume] corrected for nucleated erythrocytes in Blood by Automated counOrdered By: Fercho Wesley on 52-21-1236GWX corrected for nucl RBC Auto (Bld) [#/Vol]6.7 10*3/uL3.8-11.6FUniversity Hospitals Elyria Medical CenterLipid Panelon 01-07-1953Eiozdjsgsnp [Mass/Vol]226 mg/xXZhyl118-702QorfkbaqtSelect Medical Specialty Hospital - [facility], IncComment on above:Order Comment: Reason for Exam Hyperlipidemia, unspecified hyperlipidemia type Reason for Exam Vitamin D deficiencyResult Comment: Chol less than 200 mg/dl low risk Chol 201-239 mg/dl borderline risk Chol 240 mg/dl and greater high riskPerformed By: #### CMP, A1C WTH eA, CBC, LIPID, TSH3, [id number] #### [facility] [address] [place] [address] USACholesterol in HDL [Mass/Vol]59 mg/wXParged23-36VqhcfqnzbSelect Medical Specialty Hospital - [facility], IncComment on above:Order Comment: Reason for Exam Hyperlipidemia, unspecified hyperlipidemia type Reason for Exam Vitamin D deficiencyResult Comment: HDL CHOL ATP-III CLASSIFICATION Cardiovascular Risk HDL > or equal to 60 mg/dL LOW HDL < 40 mg/dL HIGHPerformed By: #### CMP, A1C WTH eA, CBC, LIPID, TSH3, [id number] #### [facility] [address] [place] [address] USACholesterol.total/Cholesterol in HDL [Mass ratio]3.8 {ratio}Normal<5.0[facility], IncComment on above:Order Comment: Reason for Exam Hyperlipidemia, unspecified hyperlipidemia type Reason for Exam Vitamin D deficiencyPerformed By: #### CMP, A1C WTH eA, CBC, LIPID, TSH3, [id number] #### [facility] [address] [place] [address] USALDL Cholesterol,Ubleblagyj466 mg/dLHigh0-100[facility], IncComment on above:Order Comment: Reason for Exam Hyperlipidemia, unspecified hyperlipidemia type Reason for Exam Vitamin D deficiencyResult Comment: LDL ATP III CLASSIFICATION LDL less than 100 mg/dL Optimal LDL 100-129 mg/dL Near or above optimal LDL 130-159 mg/dL Borderline high LDL 160-189 mg/dL High LDL greater than 189 mg/dL Very highPerformed By: #### CMP, A1C WTH eA, CBC, LIPID, TSH3, [id number] #### [facility] [address] [place] [address] USATriglyceride w/Wezxbs338 mg/dLNormtn0-149[facility], IncComment on above:Order Comment: Reason for Exam Hyperlipidemia, unspecified hyperlipidemia type Reason for Exam Vitamin D deficiencyResult Comment: TRIG ATP III CLASSIFICATION TRIG less than 150 mg/dL Normal TRIG 150-199 mg/dL Borderline high TRIG 200-500 mg/dL High TRIG greater than 500 mg/dL Very high Standard traceable to the Center for Disease Conrtrol and Prevention (CDC) test method.Performed By: #### CMP, A1C WTH eA, CBC, LIPID, TSH3, [id number] #### [facility] [address] [place] [address] USAVLDL VEGILWPGUBG21 mg/dLNormSamaritan HospitalComment on above:Order Comment: Reason for Exam Hyperlipidemia, unspecified hyperlipidemia type Reason for Exam Vitamin D deficiencyPerformed By: #### CMP, A1C WTH eA, CBC, LIPID, TSH3, [id number] #### [facility] [address] [place] [address] USALymphocytes Auto (Bld) [#/Vol]Ordered By: Fercho Wesley on 13-85-7788Daskidphylp (Bld) [#/Vol]2.3 10*3/uL1.00-4.8[facility], IncLymphocytes/100 WBC Auto (Bld)Ordered By: Fercho Wesley on 07-19-2023 Lymphocytes/100 WBC (Bld)33.9 %.[facility] Auto (RBC) [Entitic mass]Ordered By: Fercho Wesley on 21-45-6973BUG (RBC) [Entitic mass]28.5 pg24.7-34.3FWood County HospitalHC Auto (RBC) [Mass/Vol]Ordered By: Fercho Wesley on 65-95-1187BLSK (RBC) [Mass/Vol]32.5 g/dL32.0-35.0[facility] Auto (RBC) [Entitic vol]Ordered By: Fercho Wesley on 72-66-6957XLD (RBC) [Entitic vol]87.7 tE17-588LukfsmwazSelect Medical Specialty Hospital - Board[facility], Inc Monocytes Auto (Bld) [#/Vol]Ordered By: Fercho Wesley on 36-37-1825Fgirfucpi (Bld) [#/Vol]0.6 10*3/uL0.0-0.8[facility], IncMonocytes/100 WBC Auto (Bld)Ordered By: Fercho Wesley on 81-66-8696Pdfqbhywu/100 WBC (Bld)8.7 %.[facility], IncNeutrophils Auto (Bld) [#/Vol]Ordered By: Fercho Wesley on 49-14-1393Ppgkbsajdqc (Bld) [#/Vol]3.5 10*3/uL1.8-7.7FUniversity Hospitals Elyria Medical CenterNeutrophils/100 WBC Auto (Bld)Ordered By: Fercho Wesley on 07-19-2023 Neutrophils/100 WBC (Bld)52.3 %.[facility], IncNo Panel InformationOrdered By: Fercho Wesley on 53-67-5081Bxfaeynkx GFR (CKD-EPI)> 60.0 mL/MinSelect Medical Specialty Hospital - [facility], IncPharmacy Creatinine Clearance (ChemN/A [facility], IncNucleated erythrocytes [Presence] in Blood by Automated countOrdered By: Fercho Wesley on 52-42-4896Bdrygkypo RBC Auto Ql (Bld) 0.1 /100{WBC}0-0.5FUniversity Hospitals Elyria Medical CenterPlatelet mean volume Auto (Bld) [Entitic vol]Ordered By: Fercho Wesley on 29-90-2277Zvachsgh mean volume (Bld) [Entitic vol]10.1 fL6.3-10.7FUniversity Hospitals Elyria Medical CenterPlatelets Auto (Bld) [#/Vol]Ordered By: Fercho Wesley on 27-02-0065Xaghyhqwv (Bld) [#/Vol]247 10*3/aT369-603TephbmvvySelect Medical Specialty Hospital - Board[facility], IncPotassium [Moles/volume] in Serum or PlasmaOrdered By: Fercho Wesley on 00-63-2451Idwfmhldk [Moles/Vol]4.3 mmol/L3.5-5.1FUniversity Hospitals Elyria Medical CenterProtein [Mass/volume] in Serum or PlasmaOrdered By: Fercho Wesley on 06-33-1417Pvublyq [Mass/Vol]7.2 g/dL6.4-8.9 [facility], IncRBC Auto (Bld) [#/Vol]Ordered By: Fercho Wesley on 14-52-6294RAD (Bld) [#/Vol]4.77 10*6/uL3.60-5.00[facility] Citizens Hospitalerum or plasma albumin/globulin mass ratioOrdered By: Fercho Wesley on 96-31-3088Kclapic/Globulin [Mass ratio]1.5 {ratio}[facility] Hospitalerum or plasma anion gap determinationOrdered By: Fercho Wesley on 42-68-2240Kpwlv gap [Moles/Vol]9.2 mmol/L6.0-15.0[facility] Citizens Hospitalerum or plasma high density lipoprotein (HDL) cholesterol measurement Ordered By: Fercho Wesley on 85-22-9991Dzfolomxmhz in HDL [Mass/Vol]59 mg/dL23-92 [facility], IncComment on above:HDL CHOL ATP-III CLASSIFICATION Cardiovascular RiskHDL > or equal to 60 mg/dL LOWHDL < 40 mg/dL HIGHSerum or plasma total cholesterol/high density lipoprotein (HDL) cholesterol mass ratOrdered By: Fercho Wesley on 72-21-5067Ygwkcddedbt.total/Cholesterol in HDL [Mass ratio]3.8 {ratio}<5.0[facility] Hospitalodium [Moles/volume] in Serum or PlasmaOrdered By: Fercho Wesley on 80-28-3370Hwrzuf [Moles/Vol]142 mmol/L661-150PtgxtnpkjSelect Medical Specialty Hospital - [facility], IncThyroid Stimulating Hormoneon 89-73-6976YNU Qn2.74 m[IU]/LNormal0.45-5.33[facility], IncComment on above:Order Comment: Reason for Exam Hyperlipidemia, unspecified hyperlipidemia type Reason for Exam Vitamin D deficiencyPerformed By: #### CMP, A1C WTH eA, CBC, LIPID, TSH3, [id number] #### [facility] [address] [place] [address] USAThyrotropin [Units/volume] in Serum or PlasmaOrdered By: Fercho Wesley on 05-74-3729ATC Qn2.74 m[IU]/L0.45-5.33[facility], IncTriglyceride [Mass/volume] in Serum or PlasmaOrdered By: Fercho Wesley on 29-82-6047Eugizolftims [Mass/Vol]114 mg/dL0-149[facility] Inc Comment on above:TRIG ATP III CLASSIFICATIONTRIG less than 150 mg/dL NormalTRIG 150-199 mg/dL Borderline highTRIG 200-500 mg/dL High TRIG greater than 500 mg/dL Very highStandard traceable to the Center for Disease Conrtrol and Prevention (CDC) test method.Urea nitrogen [Mass/volume] in Serum or PlasmaOrdered By: Fercho Wesley on 81-92-0712Gluf nitrogen [Mass/Vol]21 mg/dL7-25[facility], IncVitamin D 25 Hydroxy Totalon 70-31-0291Bnhfvxh D 25 Hydroxy Total 30.6 ng/pLAadnvz69-937OhgqpgnemSelect Medical Specialty Hospital - Board[facility], IncComment on above:Order Comment: Reason for Exam Hyperlipidemia, unspecified hyperlipidemia type Reason for Exam Vitamin D deficiencyResult Comment: VITAMIN D STATUS 25(OH)VITAMIN D RANGE (ng/mL) Deficient <20 Insufficient 20 to <30 Sufficient 30 to 100 Reference: Oliva MF,Kyree NC, Virgilio BELLE, et al. Evaluation,treatment, and prevention of vitamin D deficiency; an Endocrine Society clinical practice guideline. JCEM. 2010; 96(7):1911-30. PERFORMED BY: [address] [address] PATHOLOGIST HOUSEKEEPING WORKER MARCO VILLALPANDO M.D.Performed By: #### CMP, A1C WTH eA, CBC, LIPID, TSH3, [id number] #### [facility] [address] [place] [address] USAVitamin D+Metabolites [Mass/volume] in Serum or Plasma Ordered By: Fercho Wesley on 29-86-1693Dtdyhzd D+Metabolites [Mass/Vol]30.6 ng/mL 30-100[facility], IncComment on above:VITAMIN D STATUS 25(OH)VITAMIN D RANGE (ng/mL) Deficient <20 Insufficient 20 to <23Jqlvkzvtts01 to 100Reference: Oliva MF,Kyree NC, Virgilio BELLE, et al. Evaluation,treatment, and prevention of vitamin D deficiency; an Endocrine Society clinical practice guideline. JCEM. 2010; 96(7):1911-30.WBC Auto (Bld) [#/Vol]Ordered By: Fercho Wesley on 15-97-0535BVP (Bld) [#/Vol]6.7 10*3/uL 3.8-11.6FUniversity Hospitals Elyria Medical CenterCOVID + FLU Quick Testingon 11-12-2022 SARS-CoV-2 (COVID-19) RNA CELSA+probe Ql (Unsp spec)NegativeNoCytoguide [employer] Other COVID + FLU Quick TestingNegativeEmden [employer] Other RSVon 05-39-4037UKM Ag [place] Ql (Unsp spec)NegativeCytoguide [employer] Other MITICHONDRIAL (M2) ANTIBODYon 45-18-0339Gxjbmxlzzhhkp (M2) Fpxuexxy47.4 UnitsCritically high0.0-20.0The [facility] Regional HospitalComment on above:Result Comment: Negative 0.0 - 20.0 Equivocal 20.1 - 24.9 Positive >24.9 . Mitochondrial (M2) Antibodies are found in 90-96% of patients with primary biliary cirrhosis.Performed By: #### MITOCAB ####[facility] [address] [address]Dr. Fabián Nevarez SMOOTH MUSCLE ANTIBODYon 54-50-8933Ktkpx (Smooth Muscle) Dpohtkdq70 Units Critically high0-19The [facility] Regional HospitalComment on above:Result Comment: Negative 0 - 19 Weak positive 20 - 30 Moderate to strong positive >30 . Actin Antibodies are found in 52-85% of patients with autoimmune hepatitis or chronic active hepatitis and in 22% of patients with primary biliary cirrhosis.Performed By: #### SMOOTHM ####[facility] [address] [id number]. Fabián NevarezALKALINE PHOSPHAon 88-10-4217VVD [Catalytic activity/Vol]173 U/L Critically uwic33-802Gnf [facility] HospitalComment on above:Performed By: #### ALP, ALT, AST #### [facility] [address] [address] [address] Fabián [place] 04-92-0778BNH [Catalytic activity/Vol]18 U/EPrgwgu15-22Flf [facility] HospitalComment on above:Performed By: #### ALP, ALT, AST #### [facility] [address] [place] [address] Dr. Fabián Guadalupe 27-63-8337URE [Catalytic activity/Vol]30 U/LNormal9-52The [facility] HospitalComment on above:Performed By: #### ALP, ALT, AST #### [facility] [address] [place] [address] Dr. Fabián Dale 44-09-1840Vpwhuvvvzrq peptide B (Bld) [Mass/Vol]58.0 pg/mL Normal<=900.0The [facility] HospitalComment on above:Performed By: #### BNP, LIPA, HSTROPN, CMP #### [facility] [address] [place] [address] Dr. Fabián Molina AUTO DIFFon 60-48-9087XNGX #0.0 103/ulNormal0.0-0.1The [facility] HospitalCompromedica [facility] on above:Performed By: #### CBC ####[facility] [address] [place], [place] [address]Dr.Fabián NevarezBasophils/100 WBC (Bld)0.2 %Normal0.2-2.0The [facility] Regional HospitalComment on above:Performed By: #### CBC ####[facility] [address] [place], [place] [address]DrVic ChangEO #0.1 103/ulNormal0.0-0.7The [facility] on above:Performed By: #### CBC ####[facility] Dgseigh[address] [place], [place] [address]Dr.Yilan ChangEosinophils/100 WBC (Bld)1.1 %Normal 0.9-7.0The [facility] Regional HospitalComment on above:Performed By: #### CBC ####[facility] I[address] [place], [place] [address]Dr.Fabián Nevarez Erythrocyte distribution width (RBC) [Ratio]13.6 %Nzktuh93.0-15.0The [facility] Regional HospitalComment on above:Performed By: #### CBC ####[facility] [address] [place], [place] [address]Dr.Fabián NevarezHematocrit (Bld) [Volume fraction]46.7 %Ltpvqg86.0-48.0The [facility] Regional HospitalComment on above:Performed By: #### CBC ####[facility] [address] [place], [place] [address]Dr.Fabián NevarezHemoglobin (Bld) [Mass/Vol]15.2 g/dL Aaybnl20.0-16.0The [facility] Regional HospitalComment on above:Performed By: #### CBC ####[facility] Csacdnw[address] [place], [place] [address]Dr. Fabián NevarezIG #0.01 10e3/ulNormal0.00-0.03The [facility] HospitalComment on above: Performed By: #### CBC ####[facility] Qqwrjeevvt[address] [place], [place] [address]Dr.Fabián NevarezIG %0.2 %Normal0.0-0.5The [facility] HospitalComment on above:Performed By: #### CBC ####[facility] Etgek[address] [place], [place] [address]Dr.Fabián ChangLYMPH #1.1 103/ulCritically low1.2-3.8The [facility] HospitalComment on above:Performed By: #### CBC ####[facility] L[address] [place], [place] [address]Dr.Fabián NevarezLymphocytes/100 WBC (Bld)17.1 %Critically low20.5-60.0The [facility] HospitalComment on above:Performed By: #### CBC ####[facility] [address] [address]Dr.Fabián NevarezMANUAL DIFF REQ NONormalThe [facility] HospitalComment on above:Performed By: #### CBC ####[facility] [address] [place], [place] [address]Dr. Fabián NevarezH (RBC) [Entitic mass]27.9 asQfipdm31.7-34.0The [facility] Comment on above:Performed By: #### CBC ####[facility] [address] [place], [place] [address]Dr.Fabián NevarezHC (RBC) [Mass/Vol]32.5 g/dL Kjrfke54.9-35.2The [facility] HospitalComment on above:Performed By: #### CBC ####[facility] [address] [place], [place] [address]Dr. Fabián NevarezV (RBC) [Entitic vol]85.7 lUPrnnen65.0-99.0The [facility] Comment on above:Performed By: #### CBC ####[facility] [address] [place], [place] [address]Dr.Fabián NevarezMONO #0.4 103/ulNormal0.3-0.8 The [facility] HospitalComment on above:Performed By: #### CBC ####[facility] [address] [place], [place] [address]Dr.Fabián Nevarez Monocytes/100 WBC (Bld)6.6 %Normal1.7-12.0The [facility] HospitalComment on above: Performed By: #### CBC ####[facility] Lnvchexy[address] [place], [place] [address]Dr.Fabián NevarezNEUT #4.7 103/ulNormal1.4-6.5The [facility] HospitalComment on above:Performed By: #### CBC ####[facility] [address]va[address] [place], [place] [address]Dr.Fabián NevarezNeutrophils/100 WBC (Bld)74.8 %Pijjgc89.0-75.0The [facility] HospitalComment on above:Performed By: #### CBC ####[facility] [address] [id number].Fabián NevarezPlatelet mean volume (Bld) [Entitic vol]11.0 fLNormal9.5-13.5 The [facility] HospitalComment on above:Performed By: #### CBC ####[facility] [address] [address]Dr.Fabián NopalABA456 103/srFidwoy203-414Jwc [facility] HospitalComment on above:Performed By: #### CBC ####[facility] [address] [address]Dr. Fabián ChangRBC5.45 106/ulCritically high4.20-5.40The [facility] on above:Performed By: #### CBC ####[facility] [address] [address]Dr.Fabián ChangWBC6.3 103/ulNormal4.0-11.0The [facility] HospitalComment on above:Performed By: #### CBC ####[facility] [address] [address]Dr.Fabián NevarezCovid-19 PCR (CVDTBH)on 79-43-6487BFIC-CoV-2 (COVID-19) RNA CELSA+probe Ql (Unsp spec)Detected Critically abnormalNOT DETECTEDThe [facility] on above:Result Comment: This test is not yet approved or cleared by the [place] FDA. When there are no FDA-approved or cleared tests available, and other criteria are met, FDA can make tests available under an emergency access mechanism called an Emergency Use Authorization (EUA). The EUA for this test is supported by the Electrical Intern of Health and Human Service's declaration that circumstances exist to justify the emergency use of in vitro diagnostics for the detection and/or diagnosis of the virusthat causes COVID-19. This EUA will remain in effect for the duration of the COVID-19 declaration justifying emergency of IVDs, unless it is terminated or revoked by the FDA (after which the test mayno longer be used). Performed By: #### CVDTBH ####[facility] [address] [address]Dr. Fabián Cosby-DIMERon 98-69-5946R-DIMER0.44 mg/L FEUNormal0.19-0.50The [facility] Generalment on above:Performed By: #### DDIM #### [facility] [address] [address] [address] Fabián DialloDIMER COMMENTSSEE BELOWNoCleveland Clinic Avon HospitalComment on above:Result Comment: Increases in D-Dimer concentration observed with thromboembolic events can be variable due to localization, size, and age of the thrombus. Therefore, a thromboembolic event cannot be diagnosed with certainty on the basis of the reference range. D-Dimers may also be elevated for a variety of disorders including: advanced age, , coronary disease, cancer, liver disease, infection, inflammation, hematoma, DIC, trauma, post-surgery, diabetes, thrombolytic or anticoagulant therapy, stress, and generalized hospitalization. Performed By: #### DDIM #### [facility] [address] [place] [address] Dr. Fabián NevarezLIPASEon 84-08-6132Copzgh [Catalytic activity/Vol]72.0 U/LNormal 23.0-300.0The [facility] HospitalComment on above:Performed By: #### BNP, LIPA, HSTROPN, CMP #### [facility] [address] [place] [address] Dr. Fabián NevarezPROF 14(COMP METB)on 66-08-7559Xzrymtt [Mass/Vol]3.9 g/dLNormal 3.5-5.0The [facility] Generalment on above:Performed By: #### BNP, LIPA, HSTROPN, CMP ####[facility] [address] [address]Dr. Fabián NevarezAlbumin/Globulin [Mass ratio]0.8 {ratio}NormalThe [facility] on above:Performed By: #### BNP, LIPA, HSTROPN, CMP ####[facility] [address] [address]Dr. Fabián NevarezALP [Catalytic activity/Vol]165 U/LCritically zxoz70-967Zlv [facility] HospitalComment on above:Performed By: #### BNP, LIPA, HSTROPN, CMP ####[facility] [address] [address]Dr. Yilan ChangALT [Catalytic activity/Vol]45 U/LNormal9-52The [facility] HospitalComment on above:Performed By: #### BNP, LIPA, HSTROPN, CMP ####[facility] [facility] [address] [place] [address] [address]Dr. Yilan ChangAnion gap [Moles/Vol]14.5 mmol/LNormal The [facility] HospitalComment on above:Performed By: #### BNP, LIPA, HSTROPN, CMP ####[facility] [address] [place], [place] [address]Dr. Yilan ChangAST [Catalytic activity/Vol]32 U/FUmfbdy60-29Irh [facility] Comment on above:Performed By: #### BNP, LIPA, HSTROPN, CMP ####[facility] [address] [place], [place] [address]Dr. Yilan Nevarez Bilirubin [Mass/Vol]0.4 mg/dLNormal0.2-1.3The [facility] HospitalComment on above: Performed By: #### BNP, LIPA, HSTROPN, CMP ####[facility] [address] [place], [place] [address]Dr. Yilan ChangCalcium [Mass/Vol]9.8 mg/dL Normal8.4-10.2The [facility] HospitalComment on above:Performed By: #### BNP, LIPA, HSTROPN, CMP ####[facility] [address] [address]Dr. Yilan ChangChloride [Moles/Vol]101 mmol/ZFgwjbs37-476Eym [facility] HospitalComment on above:Performed By: #### BNP, LIPA, HSTROPN, CMP ####[facility] [address] [place] [address] [address]Dr. Yilan ChangCO2 [Moles/Vol]24.5 mmol/DDkrtpp68.0-30.0The [facility] HospitalComment on above:Performed By: #### BNP, LIPA, HSTROPN, CMP ####[facility] [address] [place] [address] [address]Dr. Yilan ChangCreatinine [Mass/Vol]0.92 mg/dLNormal0.52-1.04The [facility] HospitalComment on above: Performed By: #### BNP, LIPA, HSTROPN, CMP ####[facility] [address] [place], [place] [address]Dr. Yilan ChangEGFR-AF ARMENIAN>60Normal>=60 The [facility] HospitalComp[facility] on above:Performed By: #### BNP, LIPA, HSTROPN, CMP ####[facility] [address] [place], [place] [address]Dr. Yilan ChangEGFR-NON AF ARMENIAN>60Normal>=60The [facility] on above:Performed By: #### BNP, LIPA, HSTROPN, CMP ####[facility] [address] [place], [place] [address]Dr. Yilan ChangGlobulin (S) [Mass/Vol]4.6 g/dLNormalThe [facility] HospitalComprom[facility] on above:Performed By: #### BNP, LIPA, HSTROPN, CMP ####[facility] [address] [place], [place] [address]Dr. Yilan ChangGlucose [Mass/Vol]107 mg/dLCritically qnpb57-109Ndg [facility] HospitalComment on above:Performed By: #### BNP, LIPA, HSTROPN, CMP ####[facility] [address] [place], [place] [address]Dr. Yilan ChangPotassium [Moles/Vol]4.0 mmol/LNormal3.4-5.0The [facility] HospitalComment on above:Performed By: #### BNP, LIPA, HSTROPN, CMP ####[facility] [address] [place], [place] [address]Dr. Yilan Nevarez Protein [Mass/Vol]8.5 g/dLCritically high6.1-8.2The [facility] HospitalComment on above:Performed By: #### BNP, LIPA, HSTROPN, CMP ####[facility] [address] [address]Dr. Fabián NevarezSodium [Moles/Vol]136 mmol/LCritically eou778-371Nyz [facility] HospitalComment on above: Performed By: #### BNP, LIPA, HSTROPN, CMP ####[facility] [address] [address]Dr. Fabián ChangUrea nitrogen [Mass/Vol]15.0 mg/dLNormal7.0-17.0The [facility] HospitalComment on above:Performed By: #### BNP, LIPA, HSTROPN, CMP ####[facility] [address] [address]Dr. Fabián ChangUrea nitrogen/Creatinine [Mass ratio]16.3 mg/mg NormalThe [facility] HospitalComment on above:Performed By: #### BNP, LIPA, HSTROPN, CMP ####[facility] [address] [address]Dr. Fabián NevarezTROPONIN, HIGH SENSITIVITYon 72-31-9338HTCSGX7.3 pg/mLNormal 4.0-35.5The [facility] on above:Result Comment: CUT-OFF POINTS HAVE BEEN ESTABLISHED BASED ON THE FOURTH UNIVERSAL DEFINITIONS OF MYOCARDIAL INFARCTION. THE UPPER REFERENCE LIMIT (URL) OF TROPONIN, DEFINED THE 99TH PERCENTILE OF cTnI DISTRIBUTION IN A REFERENCE POPULATION, HAS BEEN CONFIRMED THE DECISION THRESHOLD FOR CO DIAGNOSIS.Performed By: #### BNP, LIPA, HSTROPN, CMP ####[facility] [address] [address]Dr. Fabián ChangXR CHEST 1 Von 60-03-3327UE CHEST 1 VEXAM: XR CHEST 1 V HISTORY: SHORTNESS OF BREATH COMPARISON(S): None. TECHNIQUE: Single portable AP chest radiograph FINDINGS: Support devices: External monitoring leads. Lungs/pleura: Lungs are clear. No pleural effusion or pneumothorax. Heart/mediastinum: Heart and mediastinum are normal. Bones/Soft Tissues: No acute osseous abnormality. Upper abdomen: Imaged upper abdomen is unremarkable. IMPRESSION: No evidence for acute cardiopulmonary disease. Electronically authenticated by: LINDA QUEZADA Date: 2021-09-29 16:53NoCleveland Clinic Avon HospitalIntraOperative Documentson [id number] Documents [id number]#1.00CD:127NoAshtabula General HospitalOperative Reporton [id number] ReportDate of Surgery: 07/22/2020 SURGEON: Tony Dutta M.D. OPERATION: Right ultrasound guided single shot interscalene block for postoperative pain control ANESTHESIA: 2 mg of Versed PROCEDURE: The patient was interviewed and examined. Anesthetic options for postoperative pain control were discussed in great detail. After a lengthy discussion encompassing risks, benefits and alternatives of the procedure the patient elected to undergo the procedure. In the block room the patient was placed on routine monitors, vitals signs were reviewed, landmarks reviewed and the site was prepped in a sterile fashion. Visualization of the brachial plexus was excellent and a 25 gauge 1 1/2 needle was advanced with excellent ultrasound visualization. There were no paresthesias and under direct ultrasound visualization 17 cc of a 0.5% Naropin solution was injected in divided with frequent aspiration. Again there were no signs of intravascular, intrathecal or intraneural injection and the patient tolerated the procedure very well. Within several minutes the patient began to show signs and symptoms of successful blockade and despite sedation the patient remained awake and able to interact in a meaningful way throughout the duration of the procedure. The patient was then transported back to the Operating Room and underwent general anesthesia for the planned procedure. Tony Dutta M.D. bennett Dictated: 07/22/2020 #[id number] Typed: 07/22/2020 #[id number] cc: Tony Dutta M.D.[facility] MiamisburgComment on above: Result Comment: Electronically Signed By: Tra REYES, Tony\.br\Date and Time Signed: 07/28/20 14:25 ESTProgress Note-Physicianon [id number] Note-PhysicianPatient: MELIZA BEST Age: 60 years Sex: Female : 1960 Associated Diagnoses: None Author: Tony Dutta MD Preoperative Information Anesthesia history: Patient History: No personal or Family history of problems with anesthesia. Re-eval prior to induction: Inital eval reviewed: No significant interval change. Review of Systems Constitutional: Negative. Cardiovascular: Cardiovascular risk stratafacation reviewed, 1 FOS without difficulty, No chest pain. Respiratory: No SOB. Hematology/Lymphatics: Negative. Gastrointestinal: Negative. Musculoskeletal: OTHER. Neurologic Psychiatric: Negative. Health Status Allergies: Allergic Reactions (Selected) No Known Allergies Current medications: (Selected) Inpatient Medications Ordered Lactated Ringers IV [place]ba 1000 mL 1,000 mL: 1,000 mL, IV, 150 mL/hr, Routine, Start date 07/22/20 7:00:00 EST, 6.7 hour(s), Total volume (mL): 1,000, 87.2 kg, 2.01, m2 cefazolin additive + Premix Dextrose 5% Diluent 50 mL: 2 gram = 50 mL, IV Piggyback, PREOP, Routine, Start date 07/22/20 7:00:00 EST, 100 mL/hr, Infuse over 30 minute(s) Documented Medications Documented Calcium 600+D: 1 chew, Oral, Daily, Refill(s) 0, Prophylaxis Multivitamin, Therapeutic w/ Minerals: 1 tab(s), Oral, Daily, Refill(s) 0, Prophylaxis PreserVision AREDS 2: 1 cap(s), Oral, Daily, Refill(s) 0, Prophylaxis Problem list: All Problems Right rotator cuff tear / SNOMED CT 3007003145 / Confirmed Left rotator cuff tear / SNOMED CT 0957187 / Confirmed Histories Past Medical History: No active or resolved past medical history items have been selected or recorded. Procedure history: Arthroscopy of shoulder ([id number]) on 01/08/2020 at 60 Years. Comments: 01/08/2020 20:11 Martha Madden RN Left Cortisone injection given ([id number]) on 01/08/2020 at 60 Years. Comments: 01/08/2020 20:12 Martha Madden RN Right Shoulder History of hysterectomy.. ([id number]). Social History Social & Psychosocial Habits Alcohol 12/22/2019 Risk Assessment: Low Risk 07/05/2020 Use: Current Frequency: 1-2 times per month Substance Abuse 12/22/2019 Risk Assessment: Denies Substance Abuse Tobacco 12/22/2019 Risk Assessment: Denies Tobacco Use . Physical Examination Pain assessment: Self-reports no pain. Airway: Mallampati classification: II (soft palate, fauces, uvula visible). Distance: Adequate. Mouth: Adequate opening. Neck: Full range of motion. Respiratory: Respirations are non-labored. Cardiovascular: Regular rhythm. Neurologic: Alert, Oriented. Review / Management Results review: No qualifying data available . Plan [place] [employer] Anesthesiologists (ASA) physical status classification: Class II. Anesthetic Preoperative Plan Anesthesia: General. , Regional ISB block for post op pain control., Discussed the benefits of obstaining from tobacco products. Anesthetic plan, risks, benefits, and alternatives discussed with the patient and/or family. Patient verbalized understanding. Pt agrees with anesthetic plan and accepts all risks including bu t not limited to; Bleeding, infection, nerve injury, dental injury, eye injury, shortness of breath, headache, low blood pressure, serious problems with the heart and lungs, allergic reactions, failed block and ..[facility]burgComment on above:Result Comment: Electronically Signed By: Tra REYES, Tony\.br\Date and Time Signed: 07/28/20 14:24 ESTCoding Summary.on 26-48-3152Xjtmep Summary.CODING DATE: 07/27/2020 FINAL [facility] STATUS: Home (Routine DC) PAYOR: [facility] [place] APC DESCRIPTION 4403 Level 4 Musculoskeletal Procedures ADMIT DX: REASON FOR VISIT DX: M75.121 Complete rotator cuff tear or rupture of right shoulder, not specified as traumatic FINAL DX: PRINCIPAL: M75.121 Complete rotator cuff tear or rupture of right shoulder, not specified as traumatic SECONDARY: PYMT PROC APC STAT DESCRIPTION DOCTOR NAME DATE 55413 4339 J1 Arthroscopy, shoulder, Eamon Bowser DO A 07/22/2020 surgical; with rotator cuff repair RT Right side (used to identify procedures performed on the right side of the body) 88579 Arthroscopy, shoulder, Eamon Bowser DO A 07/22/2020 surgical; decompression of subacromial space with partial acromioplasty, with coracoacromial ligament (ie, arch) release, when performed (List separately in addition to code for primary procedure) RT Right side (used to identify procedures performed on the right side of the body) 01815 5114 J1 Tenodesis of long tendon Eamon Bowser DO 07/22/2020 of biceps RT Right side (used to identify procedures performed on the right side of the body) 80141 Injection(s), anesthetic Tony Dutta MD 07/22/2020 agent(s) and/or steroid; brachial plexus RT Right side (used to identify procedures performed on the right side of the body) XP Separate practitioner, a service that is distinct because it was performed by a different practitioner 42930 Anesthesia for open or Tony Dutta MD 07/22/2020 surgical arthroscopic procedures on humeral head and neck, sternoclavicular joint, acromioclavicular joint, and shoulder joint; not otherwise specified NOTE: The code number assigned matches the documented diagnosis and / or procedure in the patient's chart. However, the narrative phrase printed from the coding software may appear abbreviated, or result in slightly different terminology. Revised Coded By: Viviana Webb Revised Date Saved: 07/27/2020 11:34 amNormalPromedica Flower HospitalMain OR Intraoperative Recordon 03-21-0985Anbo OR Intraoperative RecordNormalPromedica Flower HospitalOperative Reporton [id number] ReportDate of Surgery: 07/22/2020 SURGEON: Eamon Bowser D.O. PREOPERATIVE DIAGNOSIS: Rotator cuff tear, right shoulder POSTOPERATIVE DIAGNOSIS: Rotator cuff tear, right shoulder OPERATION: 1. Examination under anesthesia, right shoulder 2. Right shoulder diagnostic arthroscopy 3. Arthroscopic rotator cuff repair 4. Arthroscopic limited debridement 5. Arthroscopic subacromial decompression 6. Mini open subpectoral biceps tenodesis ANESTHESIA: General with a regional block ANESTHESIOLOGIST: Tony Dutta M.D. and JASKARAN Medina IMPLANTS USED: 1. Rotator cuff repair: Arthrex 4.75 mm BioComposite SwiveLock anchors x 4 2. Biceps tenodesis: Arthrex biceps tenodesis button OPERATIVE INDICATIONS: Meliza is a 60-year-old right-hand dominant female who has had persistent pain in her right shoulder. Her physical examination and MRI were consistent with a tear of her supraspinatus. She underwent arthroscopic rotator cuff repair of her contralateral left shoulder back in December and continues to recover well from her surgery. She agreed to proceed with the above procedure after discussion of the risks, benefits, complications, alternatives, and expectations. Please see office notes for further details. PROCEDURE: The correct operative site was identified and marked in the Preoperative Holding Area. The patient was administered intravenous antibiotics in accordance with the SCIP Protocol. She was transported to the Regional Block Room and administered a regional anesthetic nerve block by the anesthesiologist. She was transported to the Operating Room and placed supine on the operating room table. She was administered general anesthetic. After adequate anesthesia was obtained, she was placed in the beach chair position with all bony prominences well-padded and the head secured in the padded hutson. Surgical time-out was performed with all required personnel present. The right shoulder was examined and found to have full forward elevation, abduction, internal and external rotation. There was no anterior or posterior instability. The right upper extremity was then prepped and draped in the usual sterile fashion. The forearm was secured in the Gamida Cell tenet pneumatic arm hutson. Landmarks were demarcated. The glenohumeral joint was insufflated with 20 mL of injectable saline with the spinal needle inserted posteriorly. A standard posterior portal was then made. The arthroscope was introduced into the glenohumeral joint. An anterior portal and the rotator interval was made with outside-in technique using spinal needle localization. A 7 mm cannula was placed at the anterior portal. Hook probe was inserted. Diagnostic arthroscopy was carried out with the findings as noted below: 1. Superior Labrum and Biceps: There was some degenerative tearing at the biceps anchor. Superior labrum was calcified. There was no detachment of the superior labrum. The biceps tendon was free of any intrasubstance splitting or tearing. 2. Anterior and Posterior Labrum: Intact. 3. Articular Surfaces: The humeral head had grade 1 chondromalacia, the glenoid had grade 1 changes with areas of grade 2 anteriorly. 4. Rotator Cuff: Subscapularis intact. Supraspinatus had a full-thickness, crescent-shaped tear involving the entire tendon. This was retracted to beneath the acromion. There was adequate mobility of the tissue back to its footprint. The leading edge of the tendon was somewhat thin. The infraspinatus was intact. 5. The axillary recess was free of any loose bodies or debris. The rotator interval was free of any significant pathology. The biceps tendon was released from the superior labrum with arthroscopic scissors. Superior labrum was debrided with the motorized shaver. The arthroscope was then placed into the anterior portal and a diagnostic arthroscopy was carried out from this viewing portal. Posterior structures were better visualized. There was no new pathology identified. The arthroscope was removed from the glenohumeral joint and redirected into the subacromial space posteriorly. A lateral portal was established with outside-in technique using spinal needle localization. A PassPort cannula was placed at the lateral portal. The anterior cannula was redirected into the subacromial space. Bursectomy was carried out with the arthroscopic shaver and the Markham wand. The undersurface of the acromion was skeletonized with the Markham wand and acromioplasty was then performed with the arthroscopic bur. The patient had a laterally downsloping acromion. Approximately a bur's width of bone was removed. The rotator cuff was then inspected. The tear was identified. The arthroscope was placed into the lateral portal. A 7 mm cannula was placed at the posterior portal. An accessory anterolateral portal was established with outside-in technique using spinal needle localization. Tissue grasper was inserted and used to assess the mobility of the supraspinatus. The tendon mobilized back to its footprint without requiring any releases. The greater tuberosity was cleared of soft tissue with the Markham wand. Bony bleeding bed was then created with the arthroscopic bur. A spinal needle was inserted off the lateral border or the acromion to determine trajectory for a medial row anchor placement. A small stab incision was placed at this location. A socket was then created for the first medial row anchor anteriorly just off the articular surface of the humeral head. The anchor was then inserted. The #2 FiberWire suture was then passed with the Scorpion at the middle of the supraspinatus tear. The FiberTape suture was then passed anterior to the FiberWire suture. The last FiberWire suture was then passed anterior to the FiberTape. All of the sutures were retrieved out the anterior portal for suture management. The process was repeated for a second medial row anchor placed posteriorly just off the articular surface. These sutures were passed in the same pattern in the posterior half of the supraspinatus. The two FiberTape sutures were then cut to create four separate suture limbs from the two FiberTapes. A single FiberWire and a single FiberTape from each of the medial row anchors was then retrieved out the lateral portal. A socket for the first lateral anchor was then created with the punch placed posterior at the greater tuberosity. The four sutures were then loaded into the SwiveLock anchor. The anchor was then inserted, tension was applied to each suture limb prior to fully seating the anchor to reduce and compress the supraspinatus back to it's footprint. The process was repeated for a second lateral anchor placed anteriorly w the remaining four suture limbs from the medial row anchors. The retention sutures from each of the lateral anchors were removed as these were not needed. The arm was internally and externally rotated and the repair was secure. The repair was inspected from multiple viewing portals. The shoulder was then thoroughly irrigated. All arthroscopic instruments were removed. Attention was then turned to the biceps tenodesis. A small longitudinal incision in the axillary crease was made overlying the pectoralis major. Dissection was carried down between the pectoralis and deltoid. The biceps tendon was localized and delivered outside the incision. An Allis clamp was placed on the end of the tendon. The tendon was then whipstitched with a #2 FiberLoop suture beginning at the musculotendinous junction and extending for 2.5 cm. Excess tendon was then sharply excised. The tendon was sized and found to measure a size 5. The guide pin was then drilled bicortically in a subpectoral location. The size 5 reamer was then drilled unicortically over the top of the guide pin to create the socket. Bony debris was irrigated and suctions. The FiberLoop sutures were loaded into the biceps button. The guide pin was removed. The button was inserted into the socket and flipped on the far cortex. Alternating tension was applied to the suture limbs to deliver the tendon into the socket. A free needle was used to pass a single suture limb through the tendon. A knot was then tied. The sutures were cut. The axillary incision was then closed with 3-0 Monocryl, 4-0 Monocryl, and Dermabond glue. It was dressed with 4 x 4's and Tegaderms. The portals were closed with 4-0 nylon and then dressed with Bacitracin, Adaptic, 4 x 4's and Tegaderms. The patient was reversed from anesthesia, having tolerated the procedure well. She was placed into an arm sling with an abduction pillow. The axillary incision was injected with 12 mL of 0.25% Marcaine with epinephrine prior to dressing placement. The patient was transported to the Recovery Room in good condition. COUNTS: Sponge and needle counts were correct SPECIMEN: No specimen ESTIMATED BLOOD LOSS: Minimal blood loss COMPLICATIONS: No complications CASE: Case was clean and elective Jane Scott Dictated: 07/22/2020 #[id number] Typed: 07/23/2020 #[id number] cc: Eamon Bowser D.O.[facility]burgComment on above:Result Comment: Electronically Signed By: Eamon Bowser DO\.br\Date and Time Signed: 07/27/20 10:34 ESTCoding Summary.on [id number] Summary.CODING DATE: 07/26/2020 FINAL [facility] STATUS: Home (Routine DC) PAYOR: [facility] [place] ADMIT DX: REASON FOR VISIT DX: Z01.818 Encounter for other preprocedural examination FINAL DX: PRINCIPAL: Z01.818 Encounter for other preprocedural examination SECONDARY: PYMT PROC APC STAT DESCRIPTION DOCTOR NAME DATE NOTE: The code number assigned matches the documented diagnosis and / or procedure in the patient's chart. However, the narrative phrase printed from the coding software may appear abbreviated, or result in slightly different terminology. Coded By: Mary Melendrez Date Saved: 07/26/2020 08:23 pmNormalPromedica Flower HospitalConsent for Anesthesiaon [id number] for Anesthesia [id number]#1.00CD:127NoAshtabula General HospitalDischarge Instructionson [id number] Instructions [id number]#1.00CD:127NoAshtabula General HospitalIntraOperative Documentson [id number] Documents [id number]#1.00CD:127[facility] MiamisburgIntraOperative Documents [id number]#1.00CD:[address] [place], [place] [address]Preoperative Documentson [id number] Documents [id number]#1.00CD:[address] [place], [place] [address]Consent for Treatmenton [id number] for Treatment [id number]#1.00CD:[address] [place], [place] [address]H&P Updateon 07-22-2020H&P Update [id number]#1.00CD:[address] [place], [place] [address]Inpatient Patient Summaryon [id number] Patient Summary [place] [address] [facility] Clinical Discharge Instructions PERSON INFORMATION Name: MELIZA BEST PHYSICIANS Admitting Physician: Eamon Bowser DO Attending Physician: Eamon Bowser DO PCP: FERCHO WESLEY DO Discharge Diagnosis: Comment: PATIENT EDUCATION INFORMATION Instructions: Post Op Patient Instructions - FT (Custom) (Custom); Shoulder Cryocuff Patient Instructions - FT (Custom); Joaquim Bowser - After Your Shoulder Arthroscopy (Custom) Medication Leaflets: Follow up: MEDICATION LIST New Medications Printed Prescriptions acetaminophen-oxycodone (Percocet 325 mg-5 mg Tab) 1-2 tab(s) Oral q4hr; as needed as needed for pain. Refills: 0. docusate (Colace 100 mg Cap) 1 Capsules By Mouth 2 times a day as needed for constipation. Refills:0. naproxen (naproxen 500 mg Tab) 1 Tablets By Mouth 2 times a day. with food. Refills: 0. Medications to Continue with No Changes Other Medications calcium-vitamin D (Calcium 600+D) 1 chew By Mouth every day. multivitamin with minerals (Multivitamin, Therapeutic w/ Minerals) 1 Tablets By Mouth every day. multivitamin with minerals (PreserVision AREDS 2) 1 Capsules By Mouth every day. Comment:[facility] Hospitalmai [facility] Recordon 64-77-2511Mydr OR PACU I RecordPACU Phase I Document Type FT Summary Primary Physician: Eamon Bowser DO Finalized Date/Time: 07/22/20 11:17:18 Pt. Name: MELIZA BEST Juan Carlos Powell./Sex: 1960 Female Med Rec #: [id number] Physician: Eamon Bowser DO Financial #: [id number] Pt. Type: A Room/Bed: Admit/Disch: 07/22/20 07:00:14 - Institution: Case Times PACU I FT Pre-Care Text: Identifies barriers to communication and implements measures to provide psychological support Develops individualized plan of care, and ensures continuity of care Maintains patient's dignity and privacy, and maintains patient confidentiality Identifies and reports philosophical, cultural, and spiritual beliefs and values Identifies individual values and wishes concerning care Implements aseptic technique, and administers prescribed antibiotic therapy and immunizing agents as ordered Evaluates postoperative tissue perfusion Implements thermoregulation measures, and monitors body temperature Evaluates postoperative respiratory status Evaluates postoperative cardiac status Evaluates postoperative neurological status Assesses pain control, collaborated in initiating patient-controlled analgesia and implements alternative methods of pain control Verifies allergies, administers prescribed medications and solutions, evaluates response to medications Entry 1 In PACU I 07/22/20 10:40:00 Discharge from PACU 07/22/20 11:10:00 I Outcomes Met? Yes Last Modified By: Lelia Staff Nurse, Aleisha Rangel 07/22/20 11:17:03 Post-Care Text: The patient demonstrates knowledge of the expected response to the operative or invasive procedure The patient's care is consistent with the individualized perioperative plan of care The patient's rightto privacy is maintained The patient's value system, lifestyle, ethnicity, and culture are considered, respected, and incorporated into the perioperative plan of care The patient participates in decisions affecting his or her perioperative plan of care The patient is free from signs and symptoms of infection The patient has wound/tissue perfusion consistent with or improved from baseline levels established preoperatively The patient is at or returning to normothermia at the conclusion of the immediate postoperative period The patient's respiratory function is consistent with or improved from baseline levels established preoperativelyThe patient's cardiovascular status is consistent with or improved from baseline levels established preoperatively The patient's cardiovascular status is consistent with or improved from baseline levels established preoperatively The patient demonstrates and/or reports adequate pain control throughout the perioperative period The patient received appropriate medication(s), safely administered during the perioperativeperiod Acuity Level PACU I FT Entry 1 Start Time 07/22/20 10:40:00 Stop Time 07/22/20 11:10:00 Acuity Level Acuity Level I Last Modified By: Aleisha Cervantes 07/22/20 11:17:17 Finalized By: Aleisha Cervantes Document Signatures Signed By: Aleisha Cervantes 07/22/20 11:17[facility] Main OR PACU II Recordon 51-30-2438Zpnq OR PACU II RecordPACU Phase II Document Type FT Summary Primary Physician: Eamon Bowser DO Finalized Date/Time: 07/22/20 15:12:56 Pt. Name: MELIZA BEST/Sex: 1960 Female Med Rec #: [id number] Physician: Eamon Bowser DO Financial #: [id number] Pt. Type: A Room/Bed: [place] [address] Admit/Disch: 07/22/20 07:00:14 - Institution: Case Times PACU II FT Pre-Care Text: Identifies barriers to communication and implements measures to provide psychological support and determines knowledge level Develops individualized plan of care, and ensures continuity of care Maintains patient's dignity and privacy, and maintains patient confidentiality Identifies and reports philosophical, cultural, and spiritual beliefs and values Identifies individual values and wishes concerning care administers prescribed antibiotic therapy and immunizing agents as ordered, Evaluates postoperative tissue perfusion Implements thermoregulation measures, and monitors body temperature Evaluates postoperative respiratory statusEvaluates postoperative cardiac status Evaluates postoperative neurological status Assesses pain control, collaborated in initiating patient-controlled analgesia and implements alternative methods of pain control Verifiesallergies, administers prescribed medications and solutions, evaluates response to medications Entry 1 In PACU II 07/22/20 11:10:00 Discharge from PACU 07/22/20 14:00:00 II Outcomes Met? Yes Last Modified By: Radha Rich LPN 07/22/20 15:12:54 Post-Care Text: The patient demonstrates knowledge of the expected response to the operative or invasive procedure The patient's care is consistent with the individualized perioperative plan of care The patient's rightto privacy is maintained The patient's value system, lifestyle, ethnicity, and culture are considered, respected, and incorporated into the perioperative plan of care The patient participates in decisions affecting his or her perioperative plan of care. The patient is free from signs and symptoms of infection The patient has wound/tissue perfusion consistent with or improved from baseline levels established preoperatively The patient is at or returning to normothermia at the conclusion of the immediate postoperative period The patient's respiratory function is consistent with or improved from baseline levels established preoperativelyThe patient's cardiovascular status is consistent with or improved from baseline levels established preoperatively The patient's neurological status is consistent with or improved from baseline levels established preoperatively The patient demonstrates and/or reports adequate pain control throughout the perioperative period The patient received appropriate medication(s), safely administered during the perioperativeperiod Finalized By: Radha Rich LPN Document Signatures Signed By: Radha Rich LPN 07/22/20 15:12[facility] Recordon 91-23-7628Ehmr OR Preoperative RecordPreOp Document Type FT Summary Primary Physician: Eamon Bowser DO Finalized Date/Time: 07/22/20 09:06:15 Pt. Name: MELIZA BEST/Sex: 1960 Female Med Rec #: [id number] Physician: Eamon Bowser DO Financial #: [id number] Pt. Type: A Room/Bed: 10/17 Admit/Disch: 07/22/20 07:00:14 - Institution: Case Times PreOp FT Pre-Care Text: Verifies consent for planned procedure, identifies individual values and wishes concerning care, includes family members in perioperative teaching Entry 1 Patient Times. In Pre Surgery 07/22/20 07:05:00 Out Pre Surgery 07/22/20 08:03:00 Outcomes Met? Yes Last Modified By: Sheila Crain RN 07/22/20 09:06:10 Post-Care Text: The patient participates in decisions affecting his or her perioperative plan of care Finalized By: Sheila Crain RN Document Signatures Signed By: Sheila Crain RN 07/22/20 09:06NormPike Community HospitalMonitor Recordon 28-03-6510Lvdoeji [id number]#1.00CD:127 [facility] Discharge Instructionon 90-53-3849Sbtxuoityq Surgery Discharge Instruction [place] [id number] Patient Discharge Instructions PERSON INFORMATION Name: MELIZA BEST Date of : 1960 Current Date: 07/22/2020 11:53:27 PHYSICIANS Admitting Physician: Eamon Bowser DO Discharge Diagnosis: MELIZA BEST has been given the following list of follow-up instructions, prescriptions, and patient education materials: IF UNABLE TO CONTACT YOUR PHYSICIAN AND YOU FEEL IT IS AN EMERGENCY, GO TO THE NEAREST EMERGENCY ROOM OR CALL 911 CARRIE Garrett DIANE K, have received the attached patient education materials/instructions and have verbalized understanding: May we do a follow up call? Yes No I was present when discharge instructions were given Patient Signature Date Clinican/Nurse Signature Date Follow up: Pharmacy Information: Thank you for choosing [facility] HERE ARE THE MEDICATION CHANGES THAT OCCURRED DURING YOUR HOSPITAL STAY New Medications Printed Prescriptions acetaminophen-oxycodone (Percocet 325 mg-5 mg Tab) 1-2 tab(s) Oral q4hr; as needed as needed for pain. Refills: 0. docusate (Colace 100 mg Cap) 1 Capsules By Mouth 2 times a day as needed for constipation. Refills:0. naproxen (naproxen 500 mg Tab) 1 Tablets By Mouth 2 times a day. with food. Refills: 0. Medications to Continue with No Changes Other Medications calcium-vitamin D (Calcium 600+D) 1 chew By Mouth every day. multivitamin with minerals (Multivitamin, Therapeutic w/ Minerals) 1 Tablets By Mouth every day. multivitamin with minerals (PreserVision AREDS 2) 1 Capsules By Mouth every day. PATIENT EDUCATION INFORMATION Instructions: [place], [place] [facility] AFTER YOUR SHOULDER ARTHROSCOPY 1. Diet: Begin with a liquid diet and advance to your normal diet as tolerated. 2. Activity: You may remove your sling for bathing and to perform gentle range of motion exercises for the hand,wrist, and elbow. Bend and straighten your elbow and wrist several times per day to minimize stiffness. Keep your elbow in close to your side when performing these exercises. Do not move your shoulder until instructed by your surgeon. Swelling after surgery is normal and this will gradually decrease over time. All sports activities are discouraged, at least until your first post-operative visit at which timewe will discuss how and when to resume sports. 3. Driving: Driving is legal. If you are involved in an accident, you must be able to prove that you maintainedfull control of your vehicle. For this reason, it is advised that you do not drive until your strength returns. You should not operate a vehicle or heavy machinery if you are taking narcotic pain medication. 4. Pain: If pain persists despite rest, elevation, and medication, contact your surgeon. You will be given a prescription for pain medications prior to leaving the hospital. Please inform us of any known drug allergy. If you have any problems with the medication, it should be discontinued and our office notified. The sensation of splashing of fluid inside the joint is not cause for concern. It represents residual fluids from surgery and they will be absorbed. Elevation of the arm and application of an ice pack will minimize swelling and discomfort in the first 48 hours after surgery. 5. Bandage: Soft compression dressing has been applied to your shoulder. This dressing should be comfortable and absorb any leakage of fluid or blood from your operated shoulder. Although the dressing may becomemoist or blood stained, this is not usually a cause for concern. If this persists, notify your surgeon. You may remove the dressing 48 hours after your surgery. If you have a bandage in your armpit, leave this in place until follow up. Apply betadine and band-aids to the small incisions once or twice daily as needed. 6. Incisions: The portals of entry may be sore and develop bruising over the next several days. The bruising eventually resolves and does not require any special care. Do not apply creams or lotions to your shoulder. Your portals will heal well on their own. 7. Bathing: You may shower 48 hours after surgery. Bathing or soaking in water should be avoided until your first post-operative visit. 8. Precautions: If you develop fever (101 degrees or above), increasing pain (not relieved by rest, elevation, ice,and medication as prescribed), redness or swelling in your shoulder or arm, please contact the office or the hospital. If you notice increased drainage from the operative portals after the third day,this should also be reported. 9. Return Visit: Your first post-operative follow-up appointment is generally between 7 and 14 days after discharge from the hospital. You will be given an appointment card with your appointment information. Do not hesitate to call the office or the hospital if any problems or questions arise before your appointment. Eamon AJose Bowser, DO [facility] [address], [place] [address] Reviewed: SwatiPromedica Flower HospitalPatient Education - Texton 04-24-4724Lfunhhu Education - Text [place], [place] [facility] AFTER YOUR SHOULDER ARTHROSCOPY 1. Diet: Begin with a liquid diet and advance to your normal diet as tolerated. 2. Activity: You may remove your sling for bathing and to perform gentle range of motion exercises for the hand,wrist, and elbow. Bend and straighten your elbow and wrist several times per day to minimize stiffness. Keep your elbow in close to your side when performing these exercises. Do not move your shoulder until instructed by your surgeon. Swelling after surgery is normal and this will gradually decrease over time. All sports activities are discouraged, at least until your first post-operative visit at which timewe will discuss how and when to resume sports. 3. Driving: Driving is legal. If you are involved in an accident, you must be able to prove that you maintainedfull control of your vehicle. For this reason, it is advised that you do not drive until your strength returns. You should not operate a vehicle or heavy machinery if you are taking narcotic pain medication. 4. Pain: If pain persists despite rest, elevation, and medication, contact your surgeon. You will be given a prescription for pain medications prior to leaving the hospital. Please inform us of any known drug allergy. If you have any problems with the medication, it should be discontinued and our office notified. The sensation of splashing of fluid inside the joint is not cause for concern. It represents residual fluids from surgery and they will be absorbed. Elevation of the arm and application of an ice pack will minimize swelling and discomfort in the first 48 hours after surgery. 5. Bandage: Soft compression dressing has been applied to your shoulder. This dressing should be comfortable and absorb any leakage of fluid or blood from your operated shoulder. Although the dressing may becomemoist or blood stained, this is not usually a cause for concern. If this persists, notify your surgeon. You may remove the dressing 48 hours after your surgery. If you have a bandage in your armpit, leave this in place until follow up. Apply betadine and band-aids to the small incisions once or twice daily as needed. 6. Incisions: The portals of entry may be sore and develop bruising over the next several days. The bruising eventually resolves and does not require any special care. Do not apply creams or lotions to your shoulder. Your portals will heal well on their own. 7. Bathing: You may shower 48 hours after surgery. Bathing or soaking in water should be avoided until your first post-operative visit. 8. Precautions: If you develop fever (101 degrees or above), increasing pain (not relieved by rest, elevation, ice,and medication as prescribed), redness or swelling in your shoulder or arm, please contact the office or the hospital. If you notice increased drainage from the operative portals after the third day,this should also be reported. 9. Return Visit: Your first post-operative follow-up appointment is generally between 7 and 14 days after discharge from the hospital. You will be given an appointment card with your appointment information. Do not hesitate to call the office or the hospital if any problems or questions arise before your appointment. Eamon Bowser, DO [facility] [address] [place] [address] Reviewed: NoAshtabula General HospitalConsent for Procedure/Surgeryon 07-00-2339Oqgasli for Procedure/Surgery [id number]#1.00CD:127NoAshtabula General HospitalHistory and Physicalon 83-50-7776Erwdqfo and Physical [id number]#1.00CD:127[facility] Order-Barbara 76-77-1730Kisutsdq Order-STATCommentPromedica Flower HospitalComment on above:Result Comment: Received Performed at: [facility] [address] [facility], [place] [id number] MD Rich AnaghPerformed By: #### SARS-CoV-2, CELSA, [id number] ####[place] [address] [place] [address] SARS-CoV-2, NAAon 19-60-7522DNRQ CORONAVIRUS 2 RNA:PRTHR:PT:RESPIRATORY:ORD:PROBE.AMP.TARNot DetectedNot DetectedPromedica Flower HospitalComment on above:Result Comment: This nucleic acid amplification test was developed and its performance characteristics determined by [employer]. Nucleic acid amplification tests include PCR and TMA. This test has not been FDA cleared or approved. This test has been authorized by FDA under an Emergency Use Authorization (EUA). This test is only authorized for the duration of time the declaration that circumstances exist justifying the authorization of the emergency use of in vitro diagnostic tests for detection of SARS-CoV-2 virus and/or diagnosis of COVID-19 infection under section 564(b)(1) of the Act, 21 U.S.C. 360bbb-3(b) (1), unless the authorization is terminated or revoked sooner. When diagnostic testing is negative, the possibility of a false negative result should be considered in the context of a patient's recent exposures and the presence of clinical signs and symptoms consistent with COVID-19. An individual without symptoms of COVID-19 and who is not shedding SARS-CoV-2 virus would expect to have a negative (not detected) result in this assay. Performed at: [place] [address] [facility] [place] [id number] MD Rich AnaghPerformed By: #### SARS-CoV-2, CELSA, [id number] ####[facility] [place] [address] Coding Summary.on 76-06-6517Lvijek Summary.CODING DATE: 07/07/2020 FINAL [facility] STATUS: Home (Routine DC) PAYOR: Medical [place] APC DESCRIPTION 5733 Level 3 Minor Procedures ADMIT DX: REASON FOR VISIT DX: Z01.818 Encounter for other preprocedural examination FINAL DX: PRINCIPAL: Z01.818 Encounter for other preprocedural examination SECONDARY: PYMT PROC APC STAT DESCRIPTION DOCTOR NAME DATE NOTE: The code number assigned matches the documented diagnosis and / or procedure in the patient's chart. However, the narrative phrase printed from the coding software may appear abbreviated, or result in slightly different terminology. Coded By: Joanna Anderson CphT Date Saved: 07/07/2020 09:18 amNormalPromedica Flower HospitalBUNon 07-05-2020 Urea nitrogen [Mass/Vol]19 mg/dLNormal5-21Promedica Flower HospitalComment on above:Performed By: #### [id number], 0109176, 34471529, 6244722, 9851353, 9394146 ####[facility] [address] [place], [place] [address]YJF w/Indiceson 92-01-0910Xzlahckwqtt distribution width (RBC) [Ratio]13.8 %Normal 10.9-14.2FGerman HospitalComment on above:Performed By: #### 8987479, 1553717, 29181295, 7942984, 3555429, 7807665 ####[place] [address] [place], [place] [address]Gjhagxloky (Bld) [Volume fraction] 42.5 %Cmyqej96.0-46.0Promedica Flower HospitalComment on above:Performed By: #### 6039788, 7803722, 44375781, 4210113, 6664624, 2390387 ####[place] [address] [place], [place] [address]Zgxwfbscgi (Bld) [Mass/Vol]14.3 g/jEPtykll40.0-16.0Promedica Flower HospitalComment on above: Performed By: #### 4846220, 4309469, 94539814, 0454655, 9010562, 4831658 ####[facility] [address] [place], [place] [address]XYF (RBC) [Entitic mass]28.9 xwZkmhcj84.0-34.0Promedica Flower HospitalComment on above:Performed By: #### 9675866, 6397813, 02754624, 9567398, 2783518, 5705632 ####[facility] [address] [place], [place] [address]SPHD (RBC) [Mass/Vol]33.7 g/fUEexbfh01.4-36.0Promedica Flower HospitalComment on above:Performed By: #### 1692304, 8557912, 16055178, 2667817, 5278620, 9992624 ####[address] [address]BEJ (RBC) [Entitic vol]85.7 hKNbisck87.0-100.0Promedica Flower HospitalComment on above:Performed By: #### 9131621, 4522556, 54454506, 2868162, 9678128, 1334158 ####[address] [address] Platelet mean volume (Bld) [Entitic vol]10.0 fLNormal6.4-10.8Promedica Flower HospitalComment on above:Performed By: #### 0826741, 2940934, 51432843, 8482458, 7970755, 7608571 ####[address] [address]Mppggffrn (Bld) [#/Vol]240.0 E9/IThbflb396.0-500.0Promedica Flower HospitalComment on above:Performed By: #### 0602142, 6036298, 83030632, 1248026, 8646600, 3582102 ####[address] [address]MSB (Bld) [#/Vol]5.0 E12/LNormal 4.3-5.9Promedica Flower HospitalComment on above:Performed By: #### 0158690, 6431398, 46726511, 3691792, 5665744, 0691854 ####[address] [address]IBW corrected for nucl RBC Auto (Bld) [#/Vol]7.4 E9/LNormal4.0-11.0Promedica Flower HospitalComment on above: Performed By: #### 4576480, 5436353, 35652582, 7467695, 9083169, 1214606 ####[facility] [address] [place] [address] Consent for Treatmenton 59-94-4396Xsxywdz for Treatment [id number]#1.00CD:127NormalPromedica Flower HospitalCreatinineon 46-60-8398Rhustgllox [Mass/Vol]0.7 mg/dLNormal0.5-1.3FGerman HospitalComment on above:Performed By: #### 1795287, 5124056, 93733290, 6651950, 4256064, 1292838 ####[address] [address]Cstnwlirj 56-71-5796Suauvdp [Mass/Vol]101 mg/tMPlgwos28-627EzigfkPromedica Flower HospitalComment on above: Performed By: #### 6348992, 5094106, 71750627, 4409870, 6110356, 0827477 ####[facility] [address] [place], [place] [address]Evmcq on 06-16-7084Kukwh gap [Moles/Vol]16 mmol/LNormal6-16[facility] Comment on above:Performed By: #### 9020409, 6965855, 05638403, 7678857, 4175919, 2953242 ####[place] [address] [place], [place] [address]Hjsqqzjm [Moles/Vol]101 mmol/XMfhsld341-876DvvpouPromedica Flower HospitalComment on above:Performed By: #### 7431307, 3285245, 11304640, 2904888, 9415320, 1659595 ####[facility] [address] [place], [place] [address]PC3 [Moles/Vol]27 mmol/RPqyvyl21-74BuivjdPromedica Flower HospitalComment on above:Performed By: #### 6157726, 8928408, 87089369, 3405923, 9813520, 4508969 ####[facility] [address] [place], [place] [address]Fedxupsxf [Moles/Vol]4.5 mmol/LNormal3.5-5.3Fisher Mercy Medical CenterComment on above:Performed By: #### 8703135, 9888860, 25770737, 1096435, 6034458, 5997354 ####[facility] [address] [place], [place] [address]Urerpp [Moles/Vol]139 mmol/ZSdmena820-766XeodepPromedica Flower HospitalComment on above:Performed By: #### 2606081, 5678199, 95300474, 2779121, 1794347, 6175514 ####[facility] [address] [place], [place] [address]xTLSll 93-73-1274WMD/1.73 sq M predicted among blacks MDRD (S/P/Bld) [Vol rate/Area]mL/min/{1.73_m2}Normal>=59[facility] Comment on above:Order Comment: Order added by Discern Expert.Result Comment: eGFR is race adjusted. AA=.Performed By: #### 9740187, 8755387, 26903479, 7546014, 1961029, 1646363 ####[facility] [address] [place], [place] [address]IYN/1.73 sq M predicted among non- blacks MDRD (S/P/Bld) [Vol rate/Area]mL/min/{1.73_m2}Normal>=59Promedica Flower HospitalComment on above:Order Comment: Order added by Discern Expert. Result Comment: Chronic kidney disease could be indicated at eGFR's of less than 60 mL/min/1.73m2. Kidney failure is indicated at less than 15 mL/min/1.73m2. Performed By: #### 6159459, 2934253, 88069715, 7095489, 6368198, 8068560 ####[facility] [address] [place] [address] Physician Orderon 05-85-5343Vnkxdevpz Order [id number]#1.00CD:[address] [place], [place] [address]Physician [id number]#1.00CD:127Normal Prom[facility]ica Flower HospitalPostoperative Documentson 54-54-3640Sneaqzyookqpo [id number]#1.00CD:[address] [place], [place] [address]IntraOperative Documentson 46-51-4712RsgveYddfmumjj Documents [id number]#1.00CD:[address] [place], [place] [address]Coding Summary.on 61-47-2888Qjvdpu Summary.CODING DATE: 01/14/2020 FINAL [facility] DSC STATUS: Home (Routine DC) PAYOR: [facility] [place] APC DESCRIPTION 5114 Level 4 Musculoskeletal Procedures ADMIT DX: REASON FOR VISIT DX: M75.112 Incomplete rotator cuff tear or rupture of left shoulder, not specified as traumatic FINAL DX: PRINCIPAL: M75.112 Incomplete rotator cuff tear or rupture of left shoulder, not specified as traumatic SECONDARY: M75.101 Unspecified rotator cuff tear or rupture of right shoulder, not specified as traumatic PYMT PROC APC STAT DESCRIPTION DOCTOR NAME DATE 25026 5114 J1 Arthroscopy, shoulder, Morro Bowser DOson A 01/08/2020 surgical; with rotator cuff repair LT Left side (used to identify procedures performed on the left side of the body) 93885 Arthroscopy, shoulder, Brown DO Eamon A 01/08/2020 surgical; decompression of subacromial space with partial acromioplasty, with coracoacromial ligament (ie, arch) release, when performed (List separately in addition to code for primary procedure) LT Left side (used to identify procedures performed on the left side of the body) 55839 Arthrocentesis, Morro Bowser DOson A 01/08/2020 aspiration and/or injection, major joint or bursa (eg, shoulder, hip, knee, subacromial bursa); without ultrasound guidance RT Right side (used to identify procedures performed on the right side of the body) PALM Unusual non-overlapping service, the use of a service that is distinct because it does not overlap usual components of the main service 26443 Injection(s), anesthetic Antoine Cline Jr, DO 01/08/2020 agent(s) and/or steroid; brachial plexus LT Left side (used to identify procedures performed on the left side of the body) XP Separate practitioner, a service that is distinct because it was performed by a different practitioner 65988 Anesthesia for open or Antoine Cline Jr, DO 01/08/2020 surgical arthroscopic procedures on humeral head and neck, sternoclavicular joint, acromioclavicular joint, and shoulder joint; not otherwise specified NOTE: The code number assigned matches the documented diagnosis and / or procedure in the patient's chart. However, the narrative phrase printed from the coding software may appear abbreviated, or result in slightly different terminology. Revised Coded By: Viviana Webb Revised Date Saved: 01/14/2020 12:01 [facility]ordon [id number] OR Intraoperative RecordIntraOp Document Type FT Summary Primary Physician: Eamon Bowser DO Finalized Date/Time: 01/14/20 09:00:36 Pt. Name: MELIZA BEST/Sex: 1960 Female Med Rec #: [id number] Physician: Eamon Bowser DO Financial #: [id number] Pt. Type: A Room/Bed: [facility] Admit/Disch: 01/08/20 11:03:11 - 01/08/20 19:05:00 Institution: Case Times FT Entry 1 Patient Times In Room 01/08/20 13:39:00 Out Room 01/08/20 15:53:00 Procedure Times Start 01/08/20 14:13:00 Stop 01/08/20 15:44:00 Anesthesia Times Start 01/08/20 13:39:00 Stop 01/08/20 15:53:00 Block Timeout w/ 01/08/20 13:15:00 Anesthesia Last Modified By: Blaze PELAYO, Leandra 01/08/20 15:58:46 General Comments: LEFT SHOULDER BLOCK PERFORMED BY NEDRA UNDER ULTRASOUND GUIDANCE. MAZIN, RN TO ASSIST WITH THE BLOCK. PATIENT'S HEARTRATE WAS 84, SPO2 100% ON ROOM AIR. PATIENT TOLERATED BLOCK WELL. PATIENT TAKEN BACKTO BAY 13 IN ASU. GITA CORRAL 01/14/2020 Chart opened to review and send charges Caity Dutta [employer]BILE [employer] PROPERTY UNDERWRITER Case Attendance FT Entry 1 Entry 2 Entry 3 Case Attendee Gale Gunderson DO, Eamon Mendez RN, Merrick Rogel Role Performed Anesthesiologist Surgeon - Primary Resolution Rep - Primary Accounts Payable Technician Time In 01/08/20 13:39:00 01/08/20 13:39:00 01/08/20 13:39:00 Time Out 01/08/20 15:28:00 01/08/20 15:39:00 01/08/20 15:22:00 Procedure SHOULDER ARTHROSCOPY W/ SHOULDER ARTHROSCOPY W/ SHOULDER ARTHROSCOPY W/ POSSIBLE REPAIR(Left) POSSIBLE REPAIR(Left) POSSIBLE REPAIR(Left) Comments , anesthesia supervisor lending activities Last Modified By: Blaze RN, Leandra 01/08/20 Blaze RN, Leandra 01/08/20 Blaze RN, Leandra 01/08/20 15:58:56 15:58:56 15:58:56 Entry 4 Entry 5 Entry 6 Case Attendee Lee Ann Cummings AUTOM[employer]BILE [employer] PROPERTY UNDERWRITER, Earl Lopez RN, CNOR, Diamond Bass Role Performed Resolution Rep - Other Scrub - Primary FILING WRITER Time In 01/08/20 13:39:00 01/08/20 13:39:00 01/08/20 13:39:00 Time Out 01/08/20 14:01:00 01/08/20 15:53:00 01/08/20 14:54:00 Procedure SHOULDER ARTHROSCOPY W/ SHOULDER ARTHROSCOPY W/ SHOULDER ARTHROSCOPY W/ POSSIBLE REPAIR(Left) POSSIBLE REPAIR(Left) POSSIBLE REPAIR(Left) Comments in orientation Last Modified By: Blaze RN, Leandra 01/08/20 Blaze RN, Leandra 01/08/20 Blaze RN, Leandra 01/08/20 15:58:56 15:58:56 15:58:56 Entry 7 Entry 8 Entry 9 Case Attendee Paras RN, Sheila Vila RN, CNOR, Blaze PELAYO, Leandra Peters Role Performed Staff - Other FILING WRITER Resolution Rep - Relief Time In 01/08/20 13:58:00 01/08/20 14:48:00 01/08/20 15:00:00 Time Out 01/08/20 14:12:00 01/08/20 15:53:00 01/08/20 15:53:00 Procedure SHOULDER ARTHROSCOPY W/ SHOULDER ARTHROSCOPY W/ SHOULDER ARTHROSCOPY W/ POSSIBLE REPAIR(Left) POSSIBLE REPAIR(Left) POSSIBLE REPAIR(Left) Comments Last Modified By: Blaze RN, Leandra 01/08/20 Blaze RN, Leandra 01/08/20 Blaze RN, Leandra 01/08/20 15:58:56 15:58:56 15:58:56 Entry 10 Entry 11 Case Attendee Tony DANIELS, Ann-Marie Dutta MD, Tony Role Performed Scrub - Relief Anesthesiologist of Record Time In 01/08/20 15:21:00 01/08/20 15:26:00 Time Out 01/08/20 15:53:00 01/08/20 15:53:00 Procedure SHOULDER ARTHROSCOPY W/ SHOULDER ARTHROSCOPY W/ POSSIBLE REPAIR(Left) POSSIBLE REPAIR(Left) Comments Last Modified By: Blaze PELAYO, Leandra 01/08/20 Blaze RN, Leandra 01/08/20 15:58:56 15:58:56 General Comments: CARLIE POWER, ARTHREX REP., PRESENT IN THE OR FOR SURGICAL PROCEDURE. Perioperative Protocols FT Pre-Care Text: Implements protective measures prior to operative or invasive procedure, confirms identity before the operative or invasive procedure, verifies operative procedure, surgical site, and laterality Entry 1 Procedure(s) SHOULDER ARTHROSCOPY W/ Patient Identity Birthday, ID Band POSSIBLE REPAIR(Left) Verified (select at Check, Patient least 2): Participation Consents / H and P Anesthesia Consent, Operative Site Present Verified HandP, Surgery/Procedure Marking Verified Consent Surgical Site Yes Laterality Verified Yes Verified Procedure Verified Yes Correct Patient Yes Position Verified Availability Equipment, Implant, Prep Dry Yes Verified (If Medication Applicable) PreOp Antibiotic Yes Time Out Gale Gunderson, Given Participants Eamon Bowser DO, Krupp RN, Yovany Ponce AUT[employer]BI[employer] PROPERTY UNDERWRITER, Jessica Hylton RN, CNOR, Paras Velez RN, Sheila Bone Time Out Complete 01/08/20 14:10:00 Outcomes Met? Yes Last Modified By: Merrick Mendez RN 01/12/20 10:58:27 Post-Care Text: The patient is free from signs and symptoms of injury caused by extraneous objects Allergy Information FT Pre-Care Text: Verifies allergies Entry 1 Allergies Reviewed? Yes Allergies Reviewed Self/Patient With Outcomes Met? Yes Last Modified By: Merrick Mendez RN 01/08/20 13:03:30 Post-Care Text: The patient received appropriate medication(s) safely administered during the perioperative period Surgical Procedures FT Entry 1 Procedure Description Procedure SHOULDER ARTHROSCOPY W/ Modifiers Left POSSIBLE REPAIR Surgeon Description LEFT SHOULDER ARTHROSCOPY W/ROTATOR CUFF REPAIR, SUBACROMIAL DECOMPRESSION, LYSIS OF ADHESIONS, RIGHT SHOULDER CORTIZONE INJECTION Primary Procedure Yes Primary Surgeon Eamon Bowser DO Start 01/08/20 14:13:00 Stop 01/08/20 15:44:00 Anesthesia Type General Surgical Service Orthopedics Wound Class 1 - Clean Last Modified By: Merrick Mendez RN 01/12/20 10:58:36 General Case Data FT Pre-Care Text: Classifies surgical wound, implements aseptic technique, initiates traffic control Entry 1 Case Information OR OR 7 FT Case Level Level 4 Wound Class 1 - Clean Specialty Orthopedics ASA Class 2 Preop Diagnosis LEFT SHOULDER ROTATOR Postop Same As Preop Yes CUFF TEAR Postop Diagnosis LEFT SHOULDER ROTATOR Outcomes Met? Yes CUFF TEAR Last Modified By: Nancy Dutta CST 01/14/20 08:57:58 Post-Care Text: The patient is free from signs and symptoms of infection Skin Assessment (Pre Procedure) FT Pre-Care Text: Implements protective measures to prevent skin/ tissue injury due to thermal or mechanical sources Evaluates for signs and symptoms of physical injury to skin and tissue Entry 1 Skin Integrity Intact, Valley, Warm, and Skin Abnormality No Dry Outcomes Met? Yes Last Modified By: Merrick Mendez RN 01/08/20 14:17:27 Post-Care Text: The patient is free from signs and symptoms of injury caused by extraneous objects Patient Positioning FT Pre-Care Text: Identifies physical alterations that require additional precautions for procedure-specific positioning, verifies presence of prosthetics or corrective devices, positions the patient, evaluates the patient for signs and symptoms of injury as a result of positioning Entry 1 Procedure SHOULDER ARTHROSCOPY W/ Body Position Beach Chair POSSIBLE REPAIR(Left) Feet Uncrossed? Yes Left Arm Position Held on Field Right Arm Position Extended on Padded Arm Left Leg Position Extended Board Right Leg Position Extended Positioning Device Safety Strap, Spider Positioner Leg Support, Spider Shoulder Positioner, Padded Armboard Press Points Checked Yes By Gale Gunderson Brown DO, Jason A, Krupp RN, Emiliano Ponce Tamara A, Jessica RN, CNOR, Diamond Bass Outcomes Met? Yes Last Modified By: Merrick Mendez RN 01/08/20 14:35:19 Post-Care Text: The patient is free from signs and symptoms of injury related to positioning General Comments: White foam face positioner used to position patient's face. foam piece attached to the head piece of the shoulder table. gita corral Patient Care Devices FT Pre-Care Text: Implements protective measures to prevent skin/ tissue injury due to thermal or mechanical sources Entry 1 Entry 2 Entry 3 Equipment Type ARTHREX GENERATOR ARTHREX DUALWAVE MISTRAL FORCED AIR UNIT[F] IRRIGATION PUMP[F] WARMING SYSTEM UNIT[F] Equipment Number arthroscopy cart 1 arthroscopy cart 1 M5 Equipment Setting Outcomes Met? Yes Yes Yes Last Modified By: Vanessa PELAYO, Merrick Mendez RN, Merrick Mendez RN, Merrick Rogel 01/08/20 14:37:04 01/08/20 14:37:04 01/08/20 14:37:04 Entry 4 Entry 5 Entry 6 Equipment Type MONITOR CHARGE SURGERY ARMANDO SUCTION UNIT [F] ORTHO ARTHREX ABRADER [F] SYSTEM[F] Equipment Number arthroscopy cart 1 Equipment Setting Outcomes Met? Yes Yes Yes Last Modified By: Vanessa PELAYO, Merrick Mendez RN, Merrick Rudolph RN 01/08/20 14:37:04 01/08/20 14:37:04 01/08/20 14:37:04 Entry 7 Entry 8 Entry 9 Equipment Type SHOULDER TABLE [F] SONOSITE ULTRASOUND SPIDER PNEUMATIC ARM[F] UNIT[F] Equipment Number Equipment Setting Outcomes Met? Yes Yes Yes Last Modified By: Vanessa PELAYO, Merrick Mendez RN, Merrick Mendez RN, Merrick Rogel 01/08/20 14:37:04 01/08/20 14:37:04 01/08/20 14:37:04 Entry 10 Entry 11 Equipment Type VENA FLOW UNIT[F] VIDEO SYSTEM[F] Equipment Number Equipment Setting Outcomes Met? Yes Yes Last Modified By: Merrick Mendez RN, RN, Andrea L 01/08/20 14:37:04 01/08/20 14:37:04 Post-Care Text: The patient is free from signs and symptoms of injury caused by extraneous objects Transport To OR FT Pre-Care Text: Transports according to individual needs. Evaluates for signs and symptoms of skin and tissue injury as a result of transfer or transport Entry 1 Via Cart By Merrick Mendez RN Safety Precautions Side Rails Up Outcomes Met? Yes Last Modified By: Merrick Mendez RN 01/08/20 13:02:49 Post-Care Text: The patient is free from signs and symptoms of injury related to transfer/transport Cautery FT Pre-Care Text: Implements protective measures to prevent injury due to electrical sources, and evaluates for signsand symptoms of electrical injury Entry 1 ESU Identification ESU Settings ESU Grounding Pad Outcomes Met? Yes Last Modified By: Merrick Mendez RN 01/08/20 14:19:21 Post-Care Text: The patient if free from signs and symptoms of electrical injury General Comments: bovie pad applied to patient's left thigh for procedure. Cautery not used for case.gita corral Counts Verification FT Pre-Care Text: Performs required counts Entry 1 Entry 2 Entry 3 Procedure(s) SHOULDER ARTHROSCOPY W/ SHOULDER ARTHROSCOPY W/ SHOULDER ARTHROSCOPY W/ POSSIBLE REPAIR(Left) POSSIBLE REPAIR(Left) POSSIBLE REPAIR(Left) Type Initial Relief Relief Items Sponges, Sharps Sponges, Sharps Sponges, Sharps Status Correct Correct Correct Time 01/08/20 14:08:00 By Yovany DANIELS, Earl Israel, Yovany DANIELS, Tony Hylton CST, Macie C, Hord Blank RN, CNORDiamond RN, Leandra RN, Leandra Outcomes Met? Yes Yes Yes Last Modified By: Merrick Mendez RN, RN, Leandra 01/08/20 Leandra Thakur RN 01/08/20 01/08/20 14:14:38 15:25:55 15:38:27 Entry 4 Entry 5 Procedure(s) SHOULDER ARTHROSCOPY W/ SHOULDER ARTHROSCOPY W/ POSSIBLE REPAIR(Left) POSSIBLE REPAIR(Left) Type Relief Final Items Sponges, Sharps Sponges, Sharps Status Correct Correct Time By Ann-Marie Jimenez CST, Hord Ott CST, Macie C, Hord RN, Leandra Mobley RN Outcomes Met? Yes Yes Last Modified By: Leandra Thakur RN 01/08/20 Leandra Thakur RN 01/08/20 15:25:55 15:38:27 Post-Care Text: The patient is free from signs and symptoms of injury caused by extraneous objects Skin Prep FT Pre-Care Text: Performs skin preparations Entry 1 Procedure SHOULDER ARTHROSCOPY W/ Prep Area left shoulder, left arm POSSIBLE REPAIR(Left) down to the left wrist Prep Agents Chloraprep/Dry Prior to Start Dry Time 01/08/20 14:06:00 Draping Stop Dry Time 01/08/20 14:09:00 Hair Removal Methods Not Indicated By Merrick Mendez RN Outcomes Met? Yes Last Modified By: Merrick Mendez RN 01/12/20 10:59:01 Post-Care Text: The patient is free from signs and symptoms of infection Departure From OR FT Pre-Care Text: Transports according to individual needs. Evaluates for signs and symptoms of skin and tissue injury as a result of transfer or transport. Entry 1 Via Cart Safety Precautions Side Rails Up PostOp Destination PACU Transported By Leandra Thakur RN Patient Status Stable Skin. Condition Intact, Valley, Warm, and Dry Airway Maintenance Oxygen in Use? Yes Airway Device Simple Mask Flow Rate 8 L Outcomes Met? Yes Last Modified By: Merrick Mendez RN 01/08/20 14:57:16 Post-Care Text: The patient is free from signs and symptoms of injury related to transfer/transport General Comments: Verbal and written report given to PACU nurse. Dressing/Packing FT Pre-Care Text: Administers care to wound sites Entry 1 Type Dressing Items DRESSING GAUZE 4 X 4 10'S [735430][F] Site and Details left shoulder- Outcomes Met? Yes bacitracin ointment, adaptic, 4x4's, opsite. Last Modified By: Merrick Mendez RN 01/08/20 14:37:54 Post-Care Text: The patient is free from signs and symptoms of infection Medication Administration FT Pre-Care Text: Verifies allergies, administers prescribed medications and solutions, administers prescribed antibiotic therapy and immunizing agents as ordered, evaluates response to medications Administers prescribed medications and solutions Entry 1 Route of Admin Field Expiration Date Yes Verified Ordered By Eamon Bowser DO Transcribed/To Merrick Mendez RN Field By Administered By Eamon Bowser DO Outcomes Met? Yes Last Modified By: Merrick Mendez RN 01/08/20 13:03:05 Post-Care Text: The patient received appropriate medication(s) safely administered during the perioperative period For [place] please see scanned medication reconcilliation form for medications used at the field during the procedure. Communication FT Pre-Care Text: Maintains patient's dignity and privacy,and maintains patient confidentiality Entry 1 Communication Phone Communication By Merrick Mendez RN Date and Time 01/08/20 14:23:00 Surgery Update Left a message for patient's spouse that had started surgical procedure. Outcomes Met? Yes Last Modified By: Merrick Mendez RN 01/08/20 14:25:41 Post-Care Text: The patient's right to privacy is maintained Implant Log FT Pre-Care Text: Records devices implanted during the operative or invasive procedure Entry 1 Procedure SHOULDER ARTHROSCOPY W/ Implant/Explant Implant POSSIBLE REPAIR(Left) Implant Identification FT Description ANCHOR 4.75 SWIVELLOCK Lot Number [id number] [[id number]][F] Licensed Bondsman FT-ARTHREX Catalog ?# [id number] [F] Size 4.75 X 19.1 Expiration Date 08/18/23 Unique Device [id number] Human Readable {[id number] Identifier (TYREE) Barcode [id number] Machine Readable [id number] Barcode [id number] Usage Data FT Implant Site Shoulder L Quantity 1 Implanted By Eamon Bowser DO Biological Implants MR Classification MR Safe Outcomes Met? Yes Last Modified By: Leandra Thakur RN 01/08/20 15:18:25 Post-Care Text: The patient is free from signs and symptoms of injury caused by extraneous objects Temperature Control Entry 1 Temperature Control BLANKET MISTRAL AIR Quantity 1 Aid PLUS LOWER BODY [[id number]][F] Fluid/[employer] [place] Unit Mistral warming system Setting 43 C/ high Body Site Lower anterior torso Last Modified By: Merrick Mendez RN 01/08/20 14:22:11 Case Comments Finalized By: Nancy Dutta CST Document Signatures Signed By: Leandra Thakur RN 01/08/20 15:59 Merrick Mendez RN 01/12/20 10:59 Nancy Dutta CST 01/14/20 09:00NoAs[facility] HospitalCoding Summary.on [id number] Summary.CODING DATE: 01/13/2020 FINAL [facility] DSCH STATUS: Home (Routine DC) PAYOR: [facility] [place] ADMIT DX: REASON FOR VISIT DX: Z01.812 Encounter for preprocedural laboratory examination FINAL DX: PRINCIPAL: Z01.812 Encounter for preprocedural laboratory examination SECONDARY: Z11.59 Encounter for screening for other viral diseases PYMT PROC APC STAT DESCRIPTION DOCTOR NAME DATE NOTE: The code number assigned matches the documented diagnosis and / or procedure in the patient's chart. However, the narrative phrase printed from the coding software may appear abbreviated, or result in slightly different terminology. Coded By: Joanna Anderson CphT Date Saved: 01/13/2020 01:32 [facility] on [id number] ReportDate of Surgery: 01/08/2020 SURGEON: Eamon Bowser D.O. PREOPERATIVE DIAGNOSES: 1. Rotator cuff tear, left shoulder 2. Rotator cuff tear, right shoulder POSTOPERATIVE DIAGNOSES: 1. Rotator cuff tear, adhesive capsulitis, left shoulder 2. Rotator cuff tear, right shoulder OPERATION: 1. Examination under anesthesia, left shoulder 2. Left shoulder diagnostic arthroscopy 3. Arthroscopic rotator cuff repair 4. Arthroscopic lysis of adhesions 5. Arthroscopic subacromial decompression 6. Corticosteroid injection subacromial space, right shoulder ANESTHESIA: General with a regional block ANESTHESIOLOGIST: Tony Dutta M.D., and Shital McconnellA.AJose IMPLANTS USED: Arthrex 4.75 mm BioComposite SwiveLock anchor OPERATIVE INDICATIONS: Meliza is a 60-year-old dgssz-enhe-xrdbshec female who has had persistent pain in both of her shoulders. She was initially scheduled to undergo surgery on her right shoulder today; however, she changed her mind and wished to address the left side as her left shoulder is currently more painful. She does have a tear of the rotator cuff of both shoulders confirmed on MRI. We updated her consent form for the left side and to include a cortisone injection into the right shoulder. She agreed to proceed with the above procedure after discussion of the risks, benefits, complications, alternatives, and expectations. Please see office notes for further details. PROCEDURE: The correct operative site was identified and marked in the Preoperative Holding Area. The patient was administered intravenous antibiotics in accordance with SCIP protocol. She was transported to the Regional Block Room and administered a regional anesthetic nerve block by the anesthesiologist. She was then transported to the Operating Room and placed supine on the operating room table. She was administered a general anesthetic. After adequate anesthesia was obtained, she was placed in the beach-chair position with all bony prominences well padded and head secured in a padded hutson. A surgical time-out was performed with all required personnel present. The left shoulder was examined and found to have forward elevation to 100 degrees, abduction 60 degrees, external rotation with the arm abducted 45 degrees. The left upper extremity was then prepped and draped in the usual sterile fashion. The forearm was secured in the Spider Tenet pneumatic arm hutson. Landmarks were demarcated. The glenohumeral joint was insufflated with 20 ml of injectable saline with a spinal needle inserted posteriorly. A standard posterior portal was then made. Arthroscope was introduced into the glenohumeral joint. Anterior portal in the rotator interval was made with outside-in technique using spinal needle localization. A 7 mm cannula was placed at the anterior portal. Hook probe was inserted and diagnostic arthroscopy was carried out with the findings as noted below: 1. Superior labrum and biceps: Intact. 2. Anterior and posterior labrum: There was mild fraying to the posterior labrum but no francisco detachment. Anterior labrum intact. 3. Articular surfaces: Glenoid and humeral head were free of any articular changes. 4. Rotator cuff: Subscapularis and infraspinatus intact. There was a small crescent-shaped tear along the anterior mid aspects of the supraspinatus. The tissue mobilized easily back to its footprint. No atrophy to the rotator cuff tissue. 5. Rotator interval had thickened, inflamed tissue present. Anterior and posterior capsule were also thickened and inflamed with synovitis. The axillary recess had synovitis present, no loose bodies or debris. The rotator interval and the anterior capsule were released with the Markham wand. The supraspinatus tear was then marked with an 0 Prolene suture by placing a spinal needle through the location of the tear and by passing the Prolene suture through the spinal needle and retrieving out the anterior portal. The scope was then placed in the anterior portal for viewing. The posterior labrum was debrided with a motorized shaver. The arthroscope was removed from the glenohumeral joint and redirected into the subacromial space. A lateral portal was established with outside-in technique using spinal needle localization. The patient's subacromial space was quite narrow, and there was only about 6 to 7 mm of space between the undersurface of the acromion and the rotator cuff. The acromion was skeletonized with the Markham wand. Acromioplasty was then performed through both the lateral and the posterior portals. A PassPort cannula was placed at the lateral portal. Anterior cannula was redirected into the subacromial space. A 7 mm cannula was placed at the posterior portal. An accessory posterolateral portal was established with outside-in technique using spinal needle localization. This was done for viewing and instrumentation. The marking stitch was localized. The rotator cuff tear was identified. An elevator was used to complete the tear at the areas where there were a few rotator cuff fibers remaining. Soft tissue was cleared from the greater tuberosity with the Markham wand. A bony bleeding bed was created with the arthroscopic bur. A FiberTape suture was then passed in inverted mattress fashion at the midportion of the supraspinatus tear with a Scorpion. The suture was retrieved out the anterior portal. A #2 FiberWire suture was then passed anterior to the FiberTape suture and retrieved out the anterior portal. The second limb of the FiberWire suture was then passed posteriorly to the FiberTape. All four suture limbs were retrieved out the lateral portal. A punch was used to create a socket for the anchor just lateral to the tear. The sutures were loaded in the SwiveLock anchor, and the anchor was inserted in the socket. Alternating tension was applied to each suture limb prior to fully seating the anchor to reduce the tissue back to its footprint. Adequate compression of the supraspinatus was achieved. The arm was internally and externally rotated, and the repair was found to be secure. The retention suture in the anchor was removed as it was not needed. The shoulder was then thoroughly irrigated. All arthroscopic instruments were removed. The portals were closed with 4-0 nylon. A dressing consisting of bacitracin, Adaptic, 4x4's, and Tegaderm was applied. The patient was placed in an arm sling with an abduction pillow. The patient's lateral aspect of the right shoulder was prepped with alcohol and Betadine. The subacromial space was then injected with 1 mL of Depo-Medrol mixed with 3 mL of 0.25% Marcaine with epinephrine using a 25-gauge 1-1/2-inch needle. A Band-Aid was applied. She was reversed from anesthesia having tolerated procedure well. She was transported to Recovery Room in good condition. COUNTS: Sponge and needle counts were correct SPECIMEN: No specimen ESTIMATED BLOOD LOSS: No blood loss COMPLICATIONS: No complications CASE: Clean and elective Eamon Bowser D.O. [facility] Dictated: 01/08/2020 #[id number] Typed: 01/08/2020 #[id number] cc: Eamon Bowser D.O.[facility]amisburgComment on above:Result Comment: Electronically Signed By: Eamon Bowser DO\.br\Date and Time Signed: 01/13/20 15:03 EDTOperative ReportResult type: Progress Note-Physician Result date: January 08, 2020 13:25 EDT Result status: Auth (Verified) Result title: Interscalene block Performed by: Antoine Cline Jr, DO on January 08, 2020 13:26 EDT Verified by: Antoine Cline Jr, DO on January 12, 2020 14:13 EDT Encounter info: [id number], [facility] [place], Ambulatory/Same Day Surgery, 01/08/2020 - 01/08/2020 * Final Report * MOVED TO CORRECT FOLDER Interscalene block Patient: MELIZA BEST Age: 60 years Sex: Female : 1960 Associated Diagnoses: None Author: Antoine Cline Jr, DO Postoperative Information Date/ Time: 01/08/2020 13:20:00 Preoperative Diagnosis: Acute postoperative pain.. Postoperative Diagnosis: Acute postoperative pain. Procedure: Interscalene nerve block. Anesthesia Method: Local, Monitored anesthesia care. Performed by: Antoine Cline Jr, DO. Medications: Midazolam 2 mg. Complications: None. Notes: The patient was interviewed and examined prior to the planned operation. Anesthesia options were discussed including peripheral nerve block of the brachial plexus in the interscalene region for postoperative analgesia. This discussion included a description of the procedure, risks and benefits, as well as alternatives to the block. The patients questions were addressed and the patient elected to proceed with preoperative interscalene administration of local anesthetic agent. The patient was placed in the recumbent position and monitored with continuous pulse oximetry, non-invasive blood pressure, and electrocardiography. Following time-out, the patient's pertinent anatomic landmarks were identified and marked with a felt-tipped pen before the procedure. The lateral neck and upper shoulder were prepped with ChloraPrep and sterilely draped. A 25 gauge x 1 3/8 Stimuplex needle was introduced under ultrasound guidance with stimulator attached and operating. The patient was questioned intermittently and reported no paresthesias. Loss of twitch was observed at _0.3_ mA. With the needle held in place, and with intermittent attempts for aspiration of blood, _18_ cc of 0.5% Ropivacaine WITH 4MG OF DECADRON was slowly introduced. No signs or symptoms of intravascular injection were evidenced. The injection demonstrated a positive Sam test. The patient tolerated the procedure well. The patient was then induced for general anesthesia and preparations for the proposed operation continued.. Signature Line Electronically Signed By: Antoine Cline Jr, DO Date and Time Signed: 01/12/20 14:13 EDTNoAshtabula General HospitalComment on above:Result Comment: Electronically Signed By: Antoine Cline Jr, DO\.br\Date and Time Signed: 01/13/20 07:58 EDTConsenton 28-74-1301Mfocrxj [id number]:127[facility] MiamisburgConsent for Anesthesiaon 44-41-5670Lhjicoi for Anesthesia [id number]#1.00CD:127[facility] MiamisburgDischarge Instructionson 01-12-6321Vipcazmaw Instructions [id number]:127DestinyAshtabula General HospitalIntraOperative Documentson 53-84-3522GynbjJmziuhgue Documents [id number]#1.00CD:127NoAshtabula General HospitalIntraOperative Documents [id number]:127DestinyAshtabula General HospitalPreoperative Documentson 63-57-9432Cuhgftmhbgln Documents [id number]#1.00CD:127[facility] MiamisburgPreoperative [id number]#1.00CD:127 [facility] MiamisburgProgress Note-Physicianon 32-39-8591Swpxhvzl Note-PhysicianPatient: MELIZA BEST Age: 60 years Sex: Female : 1960 Associated Diagnoses: None Author: Antoine Cline Jr, DO Postoperative Information Date/ Time: 01/08/2020 13:20:00 Preoperative Diagnosis: Acute postoperative pain.. Postoperative Diagnosis: Acute postoperative pain. Procedure: Interscalene nerve block. Anesthesia Method: Local, Monitored anesthesia care. Performed by: Antoine Cline Jr, DO. Medications: Midazolam 2 mg. Complications: None. Notes: The patient was interviewed and examined prior to the planned operation. Anesthesia options were discussed including peripheral nerve block of the brachial plexus in the interscalene region for postoperative analgesia. This discussion included a description of the procedure, risks and benefits, as well as alternatives to the block. The patients questions were addressed and the patient elected to proceed with preoperative interscalene administration of local anesthetic agent. The patient was placed in the recumbent position and monitored with continuous pulse oximetry, non-invasive blood pressure, and electrocardiography. Following time-out, the patient's pertinent anatomic landmarks were identified and marked with a felt-tipped pen before the procedure. The lateral neck and upper shoulder were prepped with ChloraPrep and sterilely draped. A 25 gauge x 1 3/8 Stimuplex needle was introduced under ultrasound guidance with stimulator attached and operating. The patient was questioned intermittently and reported no paresthesias. Loss of twitch was observed at _0.3_ mA. With the needle held in place, and with intermittent attempts for aspiration of blood, _18_ cc of 0.5% Ropivacaine WITH 4MG OF DECADRON was slowly introduced. No signs or symptoms of intravascular injection were evidenced. The injection demonstrated a positive Sam test. The patient tolerated the procedure well. The patient was then induced for general anesthesia and preparations for the proposed operation continued..Normal [facility] HospitalComment on above:Result Comment: Electronically Signed By: Antoine Cline Jr, DO\.br\Date and Time Signed: 01/12/20 14:13 EDT errorProgress Note-PhysicianPatient: MELIZA BEST Age: 60 years Sex: Female : 1960 Associated Diagnoses: None Author: Antoine Cline Jr, DO Preoperative Information Time patient last ate or drank:=== (npo 8 hours) Anesthesia history: Patient history: No prior anesthesia problems. Re-evaluation prior to induction: Completed, Initial evaluation reviewed. Review of Systems Respiratory: No shortness of breath. Cardiovascular: No chest pain. Hematology/Lymphatics: No bruising tendency, No bleeding tendency. Health Status Allergies: Allergic Reactions (All) No Known Allergies Current medications: (Selected) Inpatient Medications Ordered Lactated Ringers IV [place] 1000 mL 1,000 mL: 1,000 mL, IV, 150 mL/hr, Routine, Start date 01/08/20 11:00:00 EDT, 6.7 hour(s), Total volume (mL): 1,000, 1.97, m2 cefazolin additive + Premix Dextrose 5% Diluent 50 mL: 2 gram = 50 mL, IV Piggyback, PREOP, Routine, Start date 01/08/20 11:00:00 EDT, 100 mL/hr, Infuse over 30 minute(s) Documented Medications Documented Calcium 600+D: 1 chew, Oral, Daily, Refill(s) 0, Prophylaxis Multivitamin, Therapeutic w/ Minerals: 1 tab(s), Oral, Daily, Refill(s) 0, Prophylaxis PreserVision AREDS 2: 1 cap(s), Oral, Daily, Refill(s) 0, Prophylaxis Problem list: All Problems Right rotator cuff tear / SNOMED CT 5914247675 / Confirmed Left rotator cuff tear / SNOMED CT 8678458 / Confirmed Histories Past Medical History: No active or resolved past medical history items have been selected or recorded. Family History: No family history items have been selected or recorded. Procedure history: History of hysterectomy.. ([id number]). Social History Social & Psychosocial Habits Alcohol 12/22/2019 Risk Assessment: Low Risk Substance Abuse 12/22/2019 Risk Assessment: Denies Substance Abuse Tobacco 12/22/2019 Risk Assessment: Denies Tobacco Use . Physical Examination Vital Signs 01/08/2020 11:30 EDT Heart Rate Monitored 83 bpm Systolic Blood Pressure 121 mmHg Diastolic Blood Pressure 82 mmHg Blood Pressure Location Right arm Mean Arterial Pressure, Monitered 95 mmHg BP/Pulse Patient Position Supine 01/08/2020 11:29 EDT Temperature Oral 36.7 DegC Heart Rate Monitored 88 bpm Respiratory Rate 16 br/min Systolic Blood Pressure 128 mmHg Diastolic Blood Pressure 82 mmHg Blood Pressure Location Left arm Mean Arterial Pressure, Monitered 97 mmHg SpO2 97 % BP/Pulse Patient Position Supine 01/08/2020 11:29 EDT Apical Heart Rate 84 bpm Respiratory: Lungs are clear to auscultation. Cardiovascular: Normal rate, Regular rhythm. Review / Management Results review Interpretation of Outside Results Chest x-ray results Radiology results ECG interpretation Condition Plan [place] [employer]esthesi[employer] (ASA) physical status classification: Class II. Anesthetic Preoperative Plan Anesthesia: General. , Regional Interscalene Block. Anesthetic plan, risks, benefits, and alternatives discussed with the patient and/or family. Risks discussed: nausea, vomiting, headache, sore throat, dental injury, serious complications. Patient verbalized understanding. Communication: face to face with (patient 5 minutes, Pt educated on the importance of smoking cessation.).[facility]burgComment on above:Result Comment: Electronically Signed By: Antoine Cline Jr, DO\fallon\Date and Time Signed: 01/12/20 14:14 EDTConsent for Treatmenton 00-40-4924Egyxwoc for Treatment [id number]#1.00CD:127NormalPromedica Flower HospitalInpatient Patient Summaryon 63-87-0735Zetogglgi Patient Summary [address] [address] [facility] Clinical Discharge Instructions PERSON INFORMATION Name: MELIZA BEST [facility]#:[id number] PHYSICIANS Admitting Physician: Eamon Bowser DO Attending Physician: Eamon Bowser DO PCP: FERCHO WESLEY DO Discharge Diagnosis: Comment: PATIENT EDUCATION INFORMATION Instructions: Post Op Patient Instructions - FT (CUSTOM); Joaquim Bowser - After Your Shoulder Arthroscopy (Custom); Shoulder Cryocuff Patient Instructions - FT (CUSTOM) Medication Leaflets: Follow up: With: Address: When: Eamon Bowser [address] [place] [address] [facility] (1) 01/20/2020 1:45 PM MEDICATION LIST New Medications [id number], [address], [place] [id number], [phone] acetaminophen-oxycodone (Percocet 325 mg-5 mg Tab) 1-2 tab(s) Oral q4hr; as needed as needed for pain. Refills: 0. docusate (Colace 100 mg Cap) 1 Capsules By Mouth 2 times a day as needed for constipation. Refills:0. naproxen (naproxen 500 mg Tab) 1 Tablets By Mouth 2 times a day. with food. Refills: 0. Medications to Continue with No Changes Other Medications calcium-vitamin D (Calcium 600+D) 1 chew By Mouth every day. multivitamin with minerals (Multivitamin, Therapeutic w/ Minerals) 1 Tablets By Mouth every day. multivitamin with minerals (PreserVision AREDS 2) 1 Capsules By Mouth every day. Comment:[facility]burgMain OR PACU I Recordon 68-93-8509Zftq OR PACU I RecordPACU Phase I Document Type FT Summary Primary Physician: Eamon Bowser DO Finalized Date/Time: 01/08/20 16:32:03 Pt. Name: MELIZA BEST Garfield/Sex: 1960 Female Med Rec #: [id number] Physician: Eamon Bowser DO Financial #: [id number] Pt. Type: A Room/Bed: [facility] Admit/Disch: 01/08/20 11:03:11 - Institution: Case Times PACU I FT Pre-Care Text: Identifies barriers to communication and implements measures to provide psychological support Develops individualized plan of care, and ensures continuity of care Maintains patient's dignity and privacy, and maintains patient confidentiality Identifies and reports philosophical, cultural, and spiritual beliefs and values Identifies individual values and wishes concerning care Implements aseptic technique, and administers prescribed antibiotic therapy and immunizing agents as ordered Evaluates postoperative tissue perfusion Implements thermoregulation measures, and monitors body temperature Evaluates postoperative respiratory status Evaluates postoperative cardiac status Evaluates postoperative neurological status Assesses pain control, collaborated in initiating patient-controlled analgesia and implements alternative methods of pain control Verifies allergies, administers prescribed medications and solutions, evaluates response to medications Entry 1 In PACU I 01/08/20 15:56:00 Discharge from PACU 01/08/20 16:26:00 I Outcomes Met? Yes Last Modified By: Romulo Ordonez RN 01/08/20 16:31:38 Post-Care Text: The patient demonstrates knowledge of the expected response to the operative or invasive procedure The patient's care is consistent with the individualized perioperative plan of care The patient's rightto privacy is maintained The patient's value system, lifestyle, ethnicity, and culture are considered, respected, and incorporated into the perioperative plan of care The patient participates in decisions affecting his or her perioperative plan of care The patient is free from signs and symptoms of infection The patient has wound/tissue perfusion consistent with or improved from baseline levels established preoperatively The patient is at or returning to normothermia at the conclusion of the immediate postoperative period The patient's respiratory function is consistent with or improved from baseline levels established preoperativelyThe patient's cardiovascular status is consistent with or improved from baseline levels established preoperatively The patient's cardiovascular status is consistent with or improved from baseline levels established preoperatively The patient demonstrates and/or reports adequate pain control throughout the perioperative period The patient received appropriate medication(s), safely administered during the perioperativeperiod Acuity Level PACU I FT Entry 1 Start Time 01/08/20 15:56:00 Stop Time 01/08/20 16:26:00 Acuity Level Acuity Level I Last Modified By: Romulo Ordonez RN 01/08/20 16:31:25 Finalized By: Roumlo Ordonez RN Document Signatures Signed By: Romulo Ordonez RN 01/08/20 16:32NoAshtabula General HospitalMain OR PACU II Recordon 04-59-6457Qgip OR PACU II RecordPACU Phase II Document Type FT Summary Primary Physician: Eamon Bowser DO Finalized Date/Time: 01/08/20 19:14:34 Pt. Name: MELIZA BEST Juan Carlos LaraB./Sex: 1960 Female Med Rec #: [id number] Physician: Eamon Bowser DO Financial #: [id number] Pt. Type: A Room/Bed: [place] [address] Admit/Disch: 01/08/20 11:03:11 - Institution: Case Times PACU II FT Pre-Care Text: Identifies barriers to communication and implements measures to provide psychological support and determines knowledge level Develops individualized plan of care, and ensures continuity of care Maintains patient's dignity and privacy, and maintains patient confidentiality Identifies and reports philosophical, cultural, and spiritual beliefs and values Identifies individual values and wishes concerning care administers prescribed antibiotic therapy and immunizing agents as ordered, Evaluates postoperative tissue perfusion Implements thermoregulation measures, and monitors body temperature Evaluates postoperative respiratory statusEvaluates postoperative cardiac status Evaluates postoperative neurological status Assesses pain control, collaborated in initiating patient-controlled analgesia and implements alternative methods of pain control Verifiesallergies, administers prescribed medications and solutions, evaluates response to medications Entry 1 In PACU II 01/08/20 16:30:00 Discharge from PACU 01/08/20 19:05:00 II Outcomes Met? Yes Last Modified By: Martha Cardenas RN 01/08/20 19:14:32 Post-Care Text: The patient demonstrates knowledge of the expected response to the operative or invasive procedure The patient's care is consistent with the individualized perioperative plan of care The patient's rightto privacy is maintained The patient's value system, lifestyle, ethnicity, and culture are considered, respected, and incorporated into the perioperative plan of care The patient participates in decisions affecting his or her perioperative plan of care. The patient is free from signs and symptoms of infection The patient has wound/tissue perfusion consistent with or improved from baseline levels established preoperatively The patient is at or returning to normothermia at the conclusion of the immediate postoperative period The patient's respiratory function is consistent with or improved from baseline levels established preoperativelyThe patient's cardiovascular status is consistent with or improved from baseline levels established preoperatively The patient's neurological status is consistent with or improved from baseline levels established preoperatively The patient demonstrates and/or reports adequate pain control throughout the perioperative period The patient received appropriate medication(s), safely administered during the perioperativeperiod Finalized By: Martha Cardenas RN Document Signatures Signed By: Martha Cardenas RN 01/08/20 19:14NormPike Community HospitalMain OR Preoperative Recordon [id number] OR Preoperative RecordPreOp Document Type FT Summary Primary Physician: Eamon Bowser DO Finalized Date/Time: 01/08/20 14:15:50 Pt. Name: MELIZA BEST Juan Carlos Merrill/Sex: 1960 Female Med Rec #: [id number] Physician: Eamon Bowser DO Financial #: [id number] Pt. Type: A Room/Bed: [place] [address] Admit/Disch: 01/08/20 11:03:11 - Institution: Case Times PreOp FT Pre-Care Text: Verifies consent for planned procedure, identifies individual values and wishes concerning care, includes family members in perioperative teaching Entry 1 Patient Times. In Pre Surgery 01/08/20 11:05:00 Out Pre Surgery 01/08/20 13:37:00 Outcomes Met? Yes Last Modified By: Merrick Mendez RN 01/08/20 14:15:48 Post-Care Text: The patient participates in decisions affecting his or her perioperative plan of care Finalized By: Merrick Mendez RN Document Signatures Signed By: Merrick Mendez RN 01/08/20 14:15[facility] Record on 36-55-8395Nzgozog [id number]#1.00CD:127 [facility] Record [id number]#1.00CD:127NormalPromedica Flower HospitalPatient Education - Texton 92-95-9135Mnnznlk Education - Text [place], [place] [facility] AFTER YOUR SHOULDER ARTHROSCOPY 1. Diet: Begin with a liquid diet and advance to your normal diet as tolerated. 2. Activity: You may remove your sling for bathing and to perform gentle range of motion exercises for the hand,wrist, and elbow. Bend and straighten your elbow and wrist several times per day to minimize stiffness. Keep your elbow in close to your side when performing these exercises. Do not move your shoulder until instructed by your surgeon. Swelling after surgery is normal and this will gradually decrease over time. All sports activities are discouraged, at least until your first post-operative visit at which timewe will discuss how and when to resume sports. 3. Driving: Driving is legal. If you are involved in an accident, you must be able to prove that you maintainedfull control of your vehicle. For this reason, it is advised that you do not drive until your strength returns. You should not operate a vehicle or heavy machinery if you are taking narcotic pain medication. 4. Pain: If pain persists despite rest, elevation, and medication, contact your surgeon. You will be given a prescription for pain medications prior to leaving the hospital. Please inform us of any known drug allergy. If you have any problems with the medication, it should be discontinued and our office notified. The sensation of splashing of fluid inside the joint is not cause for concern. It represents residual fluids from surgery and they will be absorbed. Elevation of the arm and application of an ice pack will minimize swelling and discomfort in the first 48 hours after surgery. 5. Bandage: Soft compression dressing has been applied to your shoulder. This dressing should be comfortable and absorb any leakage of fluid or blood from your operated shoulder. Although the dressing may becomemoist or blood stained, this is not usually a cause for concern. If this persists, notify your surgeon. You may remove the dressing 48 hours after your surgery. If you have a bandage in your armpit, leave this in place until follow up. Apply betadine and band-aids to the small incisions once or twice daily as needed. 6. Incisions: The portals of entry may be sore and develop bruising over the next several days. The bruising eventually resolves and does not require any special care. Do not apply creams or lotions to your shoulder. Your portals will heal well on their own. 7. Bathing: You may shower 48 hours after surgery. Bathing or soaking in water should be avoided until your first post-operative visit. 8. Precautions: If you develop fever (101 degrees or above), increasing pain (not relieved by rest, elevation, ice,and medication as prescribed), redness or swelling in your shoulder or arm, please contact the office or the hospital. If you notice increased drainage from the operative portals after the third day,this should also be reported. 9. Return Visit: Your first post-operative follow-up appointment is generally between 7 and 14 days after discharge from the hospital. You will be given an appointment card with your appointment information. Do not hesitate to call the office or the hospital if any problems or questions arise before your appointment. Eamon Bowser, DO [facility] [address] [place] [address] Reviewed: [facility]burgCoding Summary.on 01-07-2020 Coding Summary.CODING DATE: 01/07/2020 FINAL [facility] STATUS: Home (Routine DC) PAYOR: [facility] [place] APC DESCRIPTION 5522 Level 2 Imaging without Contrast ADMIT DX: REASON FOR VISIT DX: R91.1 Solitary pulmonary nodule FINAL DX: PRINCIPAL: R91.1 Solitary pulmonary nodule SECONDARY: PYMT PROC APC STAT DESCRIPTION DOCTOR NAME DATE NOTE: The code number assigned matches the documented diagnosis and / or procedure in the patient's chart. However, the narrative phrase printed from the coding software may appear abbreviated, or result in slightly different terminology. Coded By: Joanna Anderson CphT Date Saved: 01/07/2020 03:38 [facility]CT [facility] Contraston [id number] Chest w/o ContrastExam Date/Time: 12/30/2019 07:30 EDT Reason for Exam: R91.1 LUNG NODULE Report IMPRESSION: CALCIFIED GRANULOMA IN THE LEFT LOWER LOBE OF THE LUNG. NO SUSPICIOUS LUNG LESION. CLINICAL HISTORY: R91.1 LUNG NODULE. COMPARISON: Chest x-ray on 12/22/2019. COMMENT: Unenhanced images were obtained. The thoracic aorta is normal in diameter, without evidence of aneurysm. No pericardial effusion is noted. No mediastinal nor hilar lymphadenopathy is noted. In the posterior medial basilar left lower lobe, there is a peripheral calcified nodule, that measures 1.1 x 0.9 x 1 cm. This is consistent with a granuloma and corresponds to the finding on the recent chest x-ray. There also are small granulomatous calcifications in the spleen. No noncalcified lung nodule nor noncalcified lung mass is evident. No infiltration nor pleural effusion is evident. All CT scans at this facility use dose modulation, iterative reconstruction, and/or weight based dosing when appropriate to reduce radiation dose to as low as reasonably achievable. FINAL REPORT Dictated: 12/31/2019 2:49 pm Isai Junior M.D. Signed (Electronic Signature): 12/31/2019 2:49 pm Signed by: Iasi Junior M.D. Transcribed by: MILLIE Technologist: [facility] HospitalCoding Summary.on 23-80-8111Dcfowr Summary.CODING DATE: 12/24/2019 FINAL [facility] STATUS: Home (Routine DC) PAYOR: [facility] [place] APC DESCRIPTION 5521 Level 1 Imaging without Contrast ADMIT DX: REASON FOR VISIT DX: Z01.818 Encounter for other preprocedural examination FINAL DX: PRINCIPAL: Z01.818 Encounter for other preprocedural examination SECONDARY: M75.101 Unspecified rotator cuff tear or rupture of right shoulder, not specified as traumatic PYMT PROC APC STAT DESCRIPTION DOCTOR NAME DATE NOTE: The code number assigned matches the documented diagnosis and / or procedure in the patient's chart. However, the narrative phrase printed from the coding software may appear abbreviated, or result in slightly different terminology. Coded By: Germaine Riddle Date Saved: 12/24/2019 02:16 pmNormalPromedica Flower HospitalBUNon 12-22-2019 Urea nitrogen [Mass/Vol]19 mg/dLNormal5-21Prom[facility] Flower HospitalComment on above:Performed By: #### [id number], 5204893, 5334418, 75627051, 8067514, 7915427 ####[address] [place], [place] [address]TJH w/Indiceson 54-27-5695Rzwudxvrydo distribution width (RBC) [Ratio]13.6 %Normal 10.9-14.2FGerman HospitalComment on above:Performed By: #### 0821253, 1520189, 3238740, 76636176, 7343328, 6793119 ####[address] [place], [place] [address]Eykxskxcek (Bld) [Volume fraction] 41.7 %Dypmor74.0-46.0Promedica Flower HospitalComment on above:Performed By: #### 5522532, 0397148, 7439976, 98881638, 4182303, 8674957 ####[address] [address]Dfnfbmbjob (Bld) [Mass/Vol]14.1 g/pGSggjai84.0-16.0Promedica Flower HospitalComment on above: Performed By: #### 4012210, 2136038, 8668211, 73705571, 5376364, 1294813 ####[address] [place], [place] [address]HDB (RBC) [Entitic mass]29.1 vzVchmxw20.0-34.0Promedica Flower HospitalComment on above:Performed By: #### 0947440, 8977871, 6100441, 54780300, 2260316, 9510905 ####[address] [address]OCOS (RBC) [Mass/Vol]33.7 g/jDLpawxn09.4-36.0Promedica Flower HospitalComment on above:Performed By: #### 5757816, 3317198, 7997222, 19322906, 3729011, 1788209 ####[facility] [address] [place], [place] [address]VSV (RBC) [Entitic vol]86.3 sVSextfa96.0-100.0Promedica Flower HospitalComment on above:Performed By: #### 9293482, 7152890, 4167734, 77753825, 6156781, 1632498 ####[address] [place] [address] Platelet mean volume (Bld) [Entitic vol]10.3 fLNormal6.4-10.8Promedica Flower HospitalComment on above:Performed By: #### 8675308, 9548347, 9467585, 46872375, 6161829, 9631242 ####[address] [address]Qiojktxft (Bld) [#/Vol]222.0 E9/UAsodhy672.0-500.0 [facility] Flower HospitalComment on above:Performed By: #### 2430589, 5910028, 8009824, 60981055, 6268122, 8026158 ####[address] [address]VPK (Bld) [#/Vol]4.8 E12/LNormal 4.3-5.9Promedica Flower HospitalComment on above:Performed By: #### 0838406, 9812265, 1093306, 05337391, 5377359, 8582892 ####[address] [address]TSP corrected for nucl RBC Auto (Bld) [#/Vol]6.0 E9/LNormal4.0-11.0Promedica Flower HospitalComment on above: Performed By: #### 9095312, 1239709, 2162284, 17903413, 8976111, 9886843 ####[address] [address] Creatinineon 13-84-0820Rbrfefgixg [Mass/Vol]0.8 mg/dLNormal0.5-1.3FGerman HospitalComment on above:Performed By: #### 0820856, 3694547, 6947091, 39571259, 3550832, 6080957 ####[facility] [address] [place], [place] [address]Ynwqgdmxc 16-99-3152Ffknsxv [Mass/Vol]101 mg/dL Fmcyue13-045MnmhnyPromedica Flower HospitalComment on above:Performed By: #### 3133077, 0790746, 3871000, 32595555, 2440741, 0599311 ####[address] [address]Mjojjuz 04-93-9071Emnve gap [Moles/Vol]11 mmol/LNormal6-16Promedica Flower HospitalComment on above: Performed By: #### 1812902, 9138051, 4848629, 15706972, 1285917, 6006348 ####[address] [address] Chloride [Moles/Vol]102 mmol/XQvknye960-256TrqcfmPromedica Flower HospitalComment on above:Performed By: #### 5013346, 0982325, 7186374, 45672301, 4991405, 3522986 ####[address] [address]RA2 [Moles/Vol]28 mmol/VUjhqoq29-48OjftocPromedica Flower HospitalComment on above: Performed By: #### 8179661, 7729369, 1065472, 59285970, 1158688, 3781019 ####[address] [address] Potassium [Moles/Vol]3.9 mmol/LNormal3.5-5.3FGerman HospitalComment on above:Performed By: #### 3621765, 0280022, 0372517, 28537938, 3828596, 0186136 ####[address] [address]Emyhro [Moles/Vol]137 mmol/GRcpfra935-407DhlyydPromedica Flower HospitalComment on above:Performed By: #### 9267154, 8605971, 4302393, 70592040, 2167663, 9968196 ####[facility] [address] [place], [place] [address]AK Chest 2 Viewson 11-13-1523GA Chest 2 ViewsExam Date/Time: 12/22/2019 13:24 EDT Reason for Exam: PST Report IMPRESSION: LEFT LOWER LOBE NODULE, AND FURTHER EVALUATION IS SUGGESTED. CLINICAL HISTORY: Presurgical testing. COMMENT: The heart is normal in size. The mediastinum is unremarkable. There is an approximately 1.1 cm nodule in the posterior medial basilar left lower lobe. From this exam, it is not clear if this is a granuloma or a small lung nodular mass, although the density is more suggestive of a granuloma. This could be further assessed with a CT scan or with comparison to prior chest radiograph from (that the patient may have had elsewhere). No infiltration nor pleural effusion is evident. FINAL REPORT Dictated: 12/22/2019 1:53 pm Isai Junior M.D. Signed (Electronic Signature): 12/22/2019 1:53 pm Signed by: Isai Junior M.D. Transcribed by: MILLIE Technologist: DestinyAshtabula General HospitaleGFRon 63-83-3141REL/1.73 sq M predicted among blacks MDRD (S/P/Bld) [Vol rate/Area] mL/min/{1.73_m2}Normal>=59Promedica Flower HospitalComment on above:Order Comment: Order added by Discern Expert.Result Comment: eGFR is race adjusted. AA=.Performed By: #### 6949029, 9150900, 2420814, 91442004, 8994653, 9791281 ####[facility] [address] [place], [place] [address]LON/1.73 sq M predicted among non-blacks MDRD (S/P/Bld) [Vol rate/Area]mL/min/{1.73_m2}Normal>=59Promedica Flower HospitalComment on above:Order Comment: Order added by Discern Expert.Result Comment: Chronic kidney disease could be indicated at eGFR's of less than 60 mL/min/1.73m2. K idney failure is indicated at less than 15 mL/min/1.73m2.Performed By: #### 7477045, 7927135, 2655957, 53734603, 6138468, 3828452 ####[facility] [address] Vital Signs Date TimeVital SignValuePerforming NoydzrztrAsbrzpkx87-14-5198 12:59-0500Body jmoqfm659.64 cmFercho Nickersons DO Work Phone: [phone] [place], [place] 7786711-11-2025 12:59-0500 Body mass index (BMI) [Ratio]28.8 kg/a6JxjpqFercho Nickersons DO Work Phone: 1([phone] [place], [place] 9470911-11-2025 12:59-0500 Body vulphx70.19 kgFercho Nickersons DO Work Phone: [phone] [place], [place] 778[address]11-11-2025 12:59-0500 Diastolic blood zqrupypl44 mm[Hg]Fercho Nickersons DO Work Phone: 2(102)6-[address] [place], [place] 778[address]11-11-2025 12:59-0500 Heart rate91 /minFercho Nickersons DO Work Phone: [phone])[address]11-11-2025 12:59-0500 Respiratory rate18 /minFercho Nickersons DO Work Phone: 1(557)1-[address] [place], [place] 778[address]11-11-2025 12:59-0500 SaO2% (BldA) [Mass fraction]95 %Fercho Nickersons DO Work Phone: 6(292)3-[address] [place], [place] 7786711-11-2025 12:59-0500 Systolic blood nwmlsyvk801 mm[Hg]Fercho Nickersons DO Work Phone: 6(192)[address] [place], [place] 7786709-09-2025 11:31-0400 Diastolic blood ugzczfla75 mm[Hg]Dieter [facility] HospitalRqgwfhahip97-70-4238 11:31-0400Systolic blood fpgnzwyb534 mm[Hg]Dieter [facility] 02-23-2025 11:34-0400Diastolic blood rljifiow17 mm[Hg]Dieter [facility] Qmxaatqqud82-95-9613 11:34-0400Systolic blood expawerk026 mm[Hg]Dieter [facility] Yibiaezxlc19-37-4124 10:59-0400Diastolic blood xukelfsd07 mm[Hg] Dieter [facility] Nprtaogjyp28-51-7618 10:59-0400Systolic blood pressure 118 mm[Hg]Dieter [facility] Xycwgohjsx39-41-7177 09:35-0400Diastolic blood ocwyvgpm10 mm[Hg]Dieter [facility] Ordkxskacx24-73-2909 09:35-0400 Systolic blood syejenmt610 mm[Hg]Dieter [facility] Aqbhvngkyh43-21-6886 10:31-0400Diastolic blood oeqdxylp53 mm[Hg]Dieter [facility] 12-01-2024 10:31-0400Systolic blood pqvwzbyr544 mm[Hg]Dieter [facility] Vwyszxonuu58-31-4684 08:14-0400Diastolic blood kawvqyba28 mm[Hg]Dieter [facility] Stckwmskvk13-98-4550 08:14-0400Systolic blood skufbgfq662 mm[Hg] Dieter [facility] Tgjunvlllp11-82-7221 14:03-0400Body hmhjew525.64 cm [facility]07-02-2024 14:03-0400Body mass index (BMI) [Ratio]27.4 kg/e8CxkvmetxbSelect [facility]07-02-2024 14:03-0400Body mqyvfr51.11 kgSelect [facility]07-02-2024 14:03-0400Diastolic blood bavqdrde90 mm[Hg][facility]07-02-2024 14:03-0400 Heart rate87 /[facility]07-02-2024 14:03-0400 Respiratory rate16 /[facility]07-02-2024 14:03-0400 SaO2% (BldA) [Mass fraction]93 %[facility]07-02-2024 14:03-0400Systolic blood wohmudrl514 mm[Hg][facility] 01-21-2024 15:33-0400Body uvnxvb776.64 cmDO Fercho Wesley Work Phone: [facility]06-04-2024 15:33-0400 Body mass index (BMI) [Ratio]27.7 kg/m2DO Fercho Wesley Work Phone: [facility]06-04-2024 15:33-0400 Body llapnt62.01 kgDO Fercho Wesley Work Phone: [facility]06-04-2024 15:33-0400 Diastolic blood jtabluog29 mm[Hg]DO Fercho Wesley Work Phone: [facility]06-04-2024 15:33-0400 Heart rate85 /Johnson Wesley Work Phone: [facility]06-04-2024 15:33-0400 Respiratory rate16 /Johnson Wesley Work Phone: [facility]06-04-2024 15:33-0400 SaO2% (BldA) [Mass fraction]98 %DO Fercho Welsey Work Phone: [facility]06-04-2024 15:33-0400 Systolic blood ymxctxoy071 mm[Hg]DO Fercho Wesley Work Phone: [facility]05-02-2024 13:08-0400 Body cfxppa010.64 cmDO Fercho Wesley Work Phone: [facility]05-02-2024 13:08-0400 Body mass index (BMI) [Ratio]28.5 kg/m2DO Fercho Wesley Work Phone: [facility]05-02-2024 13:08-0400 Body wegffe90.28 kgDO Fercho Wesley Work Phone: [facility]05-02-2024 13:08-0400 Diastolic blood kdqrbmey50 mm[Hg]DO Fercho Wesley Work Phone: [facility]05-02-2024 13:08-0400 Heart rate75 /minDO Fercho Wesley Work Phone: [facility]05-02-2024 13:08-0400 Respiratory rate16 /minDO Fercho Wesley Work Phone: [facility]05-02-2024 13:08-0400 SaO2% (BldA) [Mass fraction]97 %DO Fercho Wesley Work Phone: [facility]05-02-2024 13:08-0400 Systolic blood cnrkurjt463 mm[Hg]DO Fercho Wesley Work Phone: [facility]04-04-2024 13:42-0400 Body mudqyl895.64 cmDO Fercho eWsley Work Phone: [facility]04-04-2024 13:42-0400 Body mass index (BMI) [Ratio]29.8 kg/m2DO Fercho Wesley Work Phone: [facility]04-04-2024 13:42-0400 Body gfiqau62.91 kgDO Fercho Wesley Work Phone: [facility]04-04-2024 13:42-0400 Diastolic blood mm[Hg]DO Fercho Wesley Work Phone: [facility]04-04-2024 13:42-0400 Heart rate88 /AlysaO Fercho Wesley Work Phone: [facility]04-04-2024 13:42-0400 Respiratory rate16 /AlysaO Fercho Wesley Work Phone: [facility]04-04-2024 13:42-0400 SaO2% (BldA) [Mass fraction]99 %DO Fercho Wesley Work Phone: [facility]04-04-2024 13:42-0400 Systolic blood wwcorphd849 mm[Hg]DO Fercho Wesley Work Phone: [facility]03-07-2024 12:45-0500 Body tocrjj767.64 cmDO Fercho Wesley Work Phone: [facility]03-07-2024 12:45-0500 Body mass index (BMI) [Ratio]31.8 kg/m2DO Fercho Wesley Work Phone: [facility]03-07-2024 12:45-0500 Body tlanke92.35 kgDO Fercho Wesley Work Phone: [facility]03-07-2024 12:45-0500 Diastolic blood fgvpruxn76 mm[Hg]DO Fercho Wesley Work Phone: [facility]03-07-2024 12:45-0500 Heart rate79 /AlysaO Fercho Wesley Work Phone: [facility]03-07-2024 12:45-0500 Respiratory rate16 /Johnson Wesley Work Phone: [facility]03-07-2024 12:45-0500 SaO2% (BldA) [Mass fraction]94 %DO Fercho Wesley Work Phone: [facility]03-07-2024 12:45-0500 Systolic blood rvvlxrik708 mm[Hg]DO Fercho Wesley Work Phone: [facility]12-05-2023 13:15-0500 Body ibitgm638.64 cmFercho Wesley Other [place] [employer] Other 532914-42-7760 13:15-0500Body mass index (BMI) [Ratio] 31.63 kg/v6Liddt Kuns Other [employer] Other 12-05-2023 13:15-0500Body .91 kgFercho Wesley Other [employer] Other 12-05-2023 13:15-0500Diastolic blood mtxjrene07 mm[Hg] Fercho Maryjane Other [employer] Other 12-05-2023 13:15-0500Respiratory rate16 /minFercho Nickersonsho Other [employer] Other 12-05-2023 13:15-4591YpN9% (BldA) [Mass fraction]97 % Ferchofarzad Nickersonsho Other [facility] [employer] Other 12-05-2023 13:15-0500Systolic blood ttorwoic368 mm[Hg] Fercho Wesley Other [employer] Other Encounters Encounter DateEncounter TypeCare ProviderFacilityStart: 06-29-2025 End: 33-89-4068fxucxkabpiGbgtr Kuns DO Work Phone: -[facility] [place]Start: 06-29-2025 End: 52-71-1800Jkkoipd encounter procedureFercho Wesley P DO-[facility] [place] Work Phone: Start: 00-30-4570wwdxdjulnhEqapgv [facility] InstituteStart: 04-27-2025 End: 61-73-1388Ovlmitzxd identifierSameer Al [facility] Work Phone: [facility] [place]Start: 58-37-0446kjygtduouhQuxdle [facility] InstituteStart: 03-26-2025 End: 33-88-6721Yjxlfhcyt identifierSameer Al Shweiki Work Phone: [facility] [place]Start: 83-68-9929xdpzqgxowzCugelg Al Shweiki [facility]Start: 02-25-2025 End: 56-51-3314Xionmblkb identifierSameer Al Shweiki Work Phone: rva [place]Start: 48-29-7405jikafuhashSwyifr Al ShweikiSentara Princess Anne Hospitalnati Eye InstituteStart: 02-23-2025 End: 36-64-3209Znemdahrn identifierSameer Al Shweiki Work Phone: rva [place]Start: 87-84-6742qwniqcldizQyapre Al ShweikiHouston Eye InstituteStart: 01-26-2025 End: 89-74-6105Shzyds outpatient visit 25 minutesSameer Al Shweiki Work Phone: [facility] [place]Start: 87-12-2919eksnmvirmoJabxeq Al ShweikiSentara Princess Anne Hospitalnati Eye InstituteStart: 12-29-2024 End: 02-67-2739Gypcyqbej identifierSameer Al Shweiki Work Phone: RVJ [place]Start: 12-29-2024 End: 53-21-1782Liyupw Al Shweiki Work Phone: [facility] [place]Start: 60-07-4925gqrshjsjbzIpqykj Al ShweikiSentara Princess Anne Hospitalnati Eye InstituteStart: 12-01-2024 End: 09-44-6793Jnjsxrcna identifierSameer Al Shweiki Work Phone: [facility] [place]Start: 12-01-2024 End: 86-65-4423Obnuyk Al Shweiki Work Phone: RVN [place]Start: 39-70-3275fyslrvgseyTkqwfi Al ShweikiHouston Eye InstituteStart: 11-20-2024 End: 05-79-2887Zizapxkhw identifierSameer Al Shweiki Work Phone: rvA [place]Start: 11-20-2024 End: 77-41-9265Uujpru Al Shweiki Work Phone: [facility] [place]Start: 46-47-0594lexxgrdjydLbwlrz Al ShweikiSentara Princess Anne Hospitalnat Eye InstituteStart: 11-03-2024 End: 66-47-0581Bjlrkv outpatient new 45 minutesSameer Al Shweiki Work Phone: [facility] [place]Start: 72-32-8137oazrxjiasyZcvgmz Al ShweikiHouston Eye InstituteStart: 10-28-2024 End: 96-55-5259Gagvxzvdg identifierSameer Al Shweiki Work Phone: [facility] [place]Start: 10-28-2024 End: 19-33-8914Jqdras Al Shweiki Work Phone: [facility] [place]Start: 43-61-5797ozdioufgtuHheoge Al Shweiki [facility] InstituteStart: 10-21-2024 End: 49-96-3170Yewcnc Al Shweiki Work Phone: r[facility] [place]Start: 15-14-3116iuuzcengdpPellcq Al Shweiki [facility] InstituteStart: 02-18-2024 End: 24-77-9182hqzunaafsbTyauqbhmf [facility] Work Phone: Start: 02-18-2024 End: 53-78-4258Sqlgvyf encounter procedureAnderson [facility] Work Phone: Start: 01-21-2024 End: 26-20-6625ruyqxkgzyyPB Bryan Kuns Work Phone: [facility] Work Phone: Start: 01-21-2024 End: 15-83-6620Yqhquqz encounter procedureDO Fercho Wesley Work Phone: [facility] [place] Work Phone: Start: 12-19-2023 End: 05-37-2134Bivruci encounter procedureDO Fercho Wesley Work Phone: [facility] [place] Work Phone: Start: 11-21-2023 End: 45-40-6330xjmccdxdqtYM Fercho Wesley Work Phone: [facility] Work Phone: Start: 11-21-2023 End: 68-14-4890Useglcn encounter procedureDO Fercho Wesley Work Phone: [facility] [place] Work Phone: Start: 10-24-2023 End: 60-19-7498kxchlnpavoDpgcz KunsFacility:[facility] Start: 10-24-2023 End: 11-34-0631Oofirgc encounter procedureDO Fercho Wesley Work Phone: [facility] [place] Work Phone: Start: 10-18-2023 End: 66-10-0211allioeevinZmsip KunsFacility:[facility] Start: 10-18-2023 End: 01-70-7785Vouzuzq encounter procedureDO Fercho Wesley Work Phone: [facility] [place] Work Phone: Start: 08-17-2023 End: 77-25-8610exlwfkiykgCfqxg KunsFacility:[facility] Start: 08-17-2023 End: 91-25-5760ykmzccogjdJI Fercho Wesley Work Phone: [facility] Work Phone: Start: 08-17-2023 End: 19-75-9622Kcihvbp encounter procedureDO Fercho Wesley Work Phone: [facility]-Ultrasound [facility] [place] Work Phone: Start: 08-05-2023 End: 86-76-4980vcmolqqjltGynub Kuns Other [employer] Other Start: 91-52-5579Wxvqitlnq encounterSebastienfarzad [facility] [place]Start: 07-23-2023 End: 39-81-4642ixiakdtgllNhblm Kuns Other [employer] Other Start: 06-06-3924Vctenguoe for general adult medical examination without abnormal findingsSebastienfarzad KrishanshoCedric [facility] [place] Start: 64-85-6247Yafbmdl encounter statusFercho Wesley Other [employer] Other Start: 52-99-7249Qwoalzdh preventive med est patient 40-64yrsBryfarzad MaryjaneCedric Family Medicine [place]Start: 07-19-2023 End: 55-09-8075czwkbccitaRkagc KunsFacility:[facility] Start: 07-19-2023 End: 68-87-4035Skbwftk encounter procedureDO Fercho Krishansho Work Phone: [facility] [place] Work Phone: Start: 07-01-2023 End: 84-59-7026qwbbvnhybsUxqvx Kuns Other [employer] Other Start: 12-16-5072Glkidgiid encounterSebastienfarzad [facility] [place]Start: 11-12-2022 End: 15-33-6656ohxzhawckcNyxeb Kuns Other [employer] Other Start: 44-38-6212Aszdtzk evaluation of patient and reportFercho MaryjaneCedric Family Medicine [place]Start: 10-27-2021 End: 12-63-9700wtxskrjvehFD BRYAN KUNSFacility:Z5Kwoku: 10-24-2021 End: 37-92-7379rplupfomewUV FERCHO WESLEYFacility:V8Gkexa: 09-29-2021 End: 40-92-8129zapicjoyicIS FERCHO WESLEYFacility:E0Paidu: 02-09-2021 End: 75-87-6033qzaltmrtjjPP HUMZA Zamarripa DEBOJACKSONMAIFacility:T7Ctcxr: 05-08-2017 End: 03-52-6560Biwvtwizd identifierAbhinav Rangel Tracie Work Phone: [facility] [place]Start: 05-08-2017 End: 36-43-0610Ksmtdeo Juan Carlos Tracie Work Phone: [facility] [place]Start: 08-01-2016 End: 59-36-2263Hnvzbmojg identifierMarlenrles Juan Carlos Tracie Work Phone: [facility] [place]Start: 08-01-2016 End: 28-23-5007Wppybga Juan Carlos Tracie Work Phone: rv[facility] [place]Start: 02-15-2016 End: 08-13-1200Ldhefvlny identifierCharles K Tracie Work Phone: rv[facility] [place]Start: 02-15-2016 End: 52-26-8271Diadbsd Juan Carlos Tracie Work Phone: [facility] [place]Start: 10-05-2015 End: 04-36-4952Iuzfpvhny identifierCharles K Tracie Work Phone: [facility] [place]Start: 10-05-2015 End: 12-16-6653Soadqeq Juan Carlos Tracie Work Phone: [facility] [place]Start: 07-06-2015 End: 99-63-1780Mothlbrme identifierCharles K Tracie Work Phone: [facility] [place]Start: 07-06-2015 End: 72-66-6533Yojhgdx K Tracie Work Phone: [facility] [place]Start: 05-18-2015 End: 38-24-3110Lqxzowjtn Dashmichellevinny Hodges Work Phone: RVLizandro [place]kyStart: 05-18-2015 End: 33-92-7554Xnuxkmm K Dabbs Work Phone: [facility] [place]Start: 03-16-2015 End: 50-53-1368Vfpnwefsf identifierMarlenmichellevinny Hodges Work Phone: rvA [place]yeseniayStart: 03-16-2015 End: 52-89-4115Vlzrcbm Juan Carlos Hodges Work Phone: rva SandyeseniayStart: 01-19-2015 End: 14-28-2806Agqxzzaww Concepción Hodges Work Phone: rvA SandyeseniayStart: 01-19-2015 End: 16-89-0778Hzkfuje K Dabbs Work Phone: rvA SandyeseniayStart: 12-15-2014 End: 51-29-3207Qcxlzn consultation new/estab patient 80 minAbhinav Juan Carlos Tracie Work Phone: RVLizandro Anabel Procedures DateProcedureProcedure DetailPerforming ClinicianStart: 58-53-7661Fyrlz 1mg Pre- filled SyringeSameer Al ShweikiStart: 66-47-6603Djiwvjpffqpo njx pharmacologic agt spxSameer Al ShweikiStart: 04-27-2025 End: 03-97-8574Clphh 1mg Pre-filled SyringeSameer Al Shweiki MDStart: 04-27-2025 Eylea 1mg Pre-filled SyringeSameer Al ShweikiStart: 04-27-2025 End: 05-79-3181Zhqdvjbecoup njx pharmacologic agt spxSameer Al Shweiki MDStart: 03-26-2025 End: 49-46-6210Pdrxb 1mg Pre-filled SyringeSameer Al Shweiki MDStart: 03-26-2025 Eylea 1mg Pre-filled SyringeSameer Al [facility] 03-26-2025 End: 76-22-5548Eqjonbfgobna njx pharmacologic agt spxSameer Al [facility] MDStart: 02-23-2025 End: 70-29-7799Mvpyhonurtf injectionSameer Al [facility] MDStart: 02-23-2025 End: 14-91-4693Zxyppzgtxgbs ophthalmic imaging retinaSameer Al [facility] MDStart: 02-23-2025 End: 44-03-5444Iufiknpnnxve njx pharmacologic agt spxSameer Al [facility] MDStart: 01-26-2025 End: 32-90-8470Vcconlnahqx injectionSameer Al [facility] MDStart: 01-26-2025 End: 28-06-5447Zfvkqkehontc ophthalmic imaging retinaSameer Al [facility] MDStart: 01-26-2025 End: 01-03-7691Yumsycxjfoss njx pharmacologic agt spxSameer Al [facility] MDStart: 12-29-2024 End: 46-20-8366Mvkyynwhjej injectionSameer Al [facility] MDStart: 12-29-2024 End: 98-25-4503Izuxgdigfcul njx pharmacologic agt spxSameer Al [facility] MDStart: 12-01-2024 End: 34-26-6251Ubqcqwhagaz injectionSameer Al [facility] MDStart: 12-01-2024 End: 56-77-1941Tmfoxnurccuw njx pharmacologic agt spxSameer Al [facility] MDStart: 11-03-2024 End: 31-07-2942Qvkgddniscx injectionSameer Al [facility] [facility] MDStart: 11-03-2024 End: 71-59-6260Kfxlbgtfxfuo ophthalmic imaging retinaSameer Al [facility] MDStart: 90-11-2281Khsist Photos No ChargeSameer Al [facility]Start: 11-03-2024 End: 72-17-0667Zvnpxe Photos No Charge BilateralSameer Al [facility] MDStart: 11-03-2024 End: 63-83-1038Lvezpwxgpswz njx pharmacologic agt spxSameer Al [facility] MDStart: 66-99-6743Mmdkdijcanpnlpa of abdomenDO Fercho Wesley Work Phone: Start: 05-08-2017 End: 17-59-2284Jdhhmiogbvyd ophthalmic imaging retinaSameer Al [facility] MDStart: 08-01-2016 End: 74-63-2137Pufzhwxbfutj ophthalmic imaging retinaSameer Al [facility] MDStart: 02-15-2016 End: 06-90-7255Nbsbbqvolxkn ophthalmic imaging retinaSameer Al [facility] MDStart: 10-05-2015 End: 79-38-2076Hdariaymezzk ophthalmic imaging retinaSameer Al [facility] MDStart: 07-06-2015 End: 97-43-8465Soglgwipbi Drug NOCSameer Al [facility] MDStart: 07-06-2015 End: 74-63-9206Uvvbtezmpfns ophthalmic imaging retinaSameer Al [facility] MDStart: 07-06-2015 End: 79-45-8155Flbgyytgkgba njx pharmacologic agt spxSameer Al [facility] MDStart: 05-18-2015 End: 16-76-1556Bmbnvhsntvjk ophthalmic imaging retinaSameer Al [facility] MDStart: 05-18-2015 End: 71-33-9507Gxfudmjtftkl njx pharmacologic agt spxSameer Al [facility] MDStart: 05-18-2015 End: 50-89-1220Cqbkxgsovdog biologicsSameer Al [facility] MDStart: 03-16-2015 End: 60-43-8491Jyarsqqcwvab ophthalmic imaging retinaSameer Al [facility] MDStart: 01-19-2015 End: 64-34-3015Eznkfavyvha angrph w/multiframe i&r uni/biSameer Al Ayla REYES Start: 01-19-2015 End: 27-57-8893Pmjvkyubodcb njx pharmacologic agt spxSameer Al [facility] MDStart: 01-19-2015 End: 69-78-2548Xvssidvjptnb biologicsSameer Al [facility] MDStart: 12-15-2014 End: 89-94-6129Ciomkddaxsj angrph w/multiframe i&r uni/biSameer Al moniqueiki MD Start: 12-15-2014 End: 22-51-5709Bqyvbstiflyz njx pharmacologic agt spxSkathleen Umana MDStart: 12-15-2014 End: 38-87-4426Rukkinzcrocl biologicsSamemai Umana MD Plan of Treatment DateCare ActivityDetailAuthorStart: 51-57-9099Huedbk, Meliza / 4 Wks Io No Oct Eyl Od (3of3)[facility] Work Phone: Start: 32-09-6180Zyrdok, Meliza 4wk (5) IO Switch To Eyl OD 1-3[facility] Work Phone: Start: 75-77-6467Geukca, Meliza 4wk (5) IO Switch To Eyl OD 1-3[facility] Work Phone: Start: 11-90-1433Txpfrbfbea about tobacco useTobacco cessation counselingCVP PhysiciansStart: 13-01-3187Lqhcdw, Meliza/ 4wk IO AVN Od (2of2) OCTCV[facility] Work Phone: Start: 65-05-0610Xkxwha, Meliza / 4 Wks Dfe Oct Poss Avn OdCV[facility] Work Phone: Start: 65-42-4027Ljshyk, Meliza 4wk IO Avn OD 3-3 NO OCTCV[facility] Work Phone: Start: 32-46-9182Loiofz, Meliza 4 Wk IO No OCT AVN OD (2/3)[facility] Work Phone: Start: 10-12-8648Xrkbpel cessation educationTobacco cessation counselingCV PhysiciansStart: 47-91-6769Unljlgi referralOhio[facility] Work Phone: Comprehensive metabolic 2000 panel - Serum or Plasma [facility] IncComprehensive metabolic 2000 panel - Serum or PlasmaSelect [facility], IncMG Breast - bilateral ScreeningSelect [facility] Specialty [facility], IncPatient referralOhiohealth Dublin Methodist Hospital Work Phone: [facility] Immunizations Immunization DateImmunizationNotesCare ProviderFacilityNEGATED: Highlighted row has not occurred!27-23-0866uiknmgcjj, seasonal, injectablePatient ObjectionBryfarzad Wesley Other Nort [employer] Other Payers DatePayer CategoryPayerPolicy [id number] 2.0.1.821509.3.57[id number] 2.840.1.766773.3.57[id number] 2.0.1.448176.3.57[id number] 2.840.1.684121.3.57[id number] 2.0.1.273366.3.57[id number] 2.840.1.340965.3.57[id number] 2.0.1.830985.3.57[id number] 2.840.1.986923.3.57[id number] 2.840.1.197652.3.57[id number] 2..840.1.694920.3.57[id number] 2..840.1.707216.3.57[id number] 2..840.1.996042.3.57[id number] 2..840.1.139993.3.57[id number] 2..840.1.264977.3.57[id number] 482rw21g-0wjj-6255-[id number] 2..840.1.8[id number] 2..840.1.752373.3.579.2.531 [id number] 2..840.1.0[id number] 2.840.1.495946.3.579.2.531 Social History DateTypeDetailFacilitySex Assigned At [facility] [employer] Other Start: 24-03-5602Qtl [facility]igned At [facility]art: 10-24-2023 End: 46-52-4645Wgywbyu smoking status NHISNever smoked tobacco (finding) [facility]2024 End: 44-87-3795Jxsjmdt smoking status NHISUnknown if ever smokedRICHMOND [facility] Start: 85-27-2048Itehmqs intakeAlcohol Use DetailsRICHMOND UNIVERSITY MEDICAL [facility] PhysiciansStart: 16-52-4949Ltmsgke use and exposureNon-Smoking Tobacco Use DetailsRICHMOND UNIVERSITY MEDICAL [facility] Phys[facility] Start: 96-67-8664Dfwfag OrientationStraight or heterosexualCVP PhysiciansSexual OrientationLesbian, hoyos or homosexual[facility] Work Phone: SexFemale (finding)[facility] NEGATED: Highlighted rowStart: 61-02-6667Spqyfon smoking status NHISNever smoker [facility]iciansNEGATED: Highlighted rowStart: 85-40-8303Zcnstgv of tobacco use Current non-smokerCVP PhysiciansNEGATED: Highlighted rowStart: 11-03-2024 End: 03-65-6861Stnypag smoking status NHISUnknown if ever smokedCV[facility] Clinical Notes 02-09-2021 to 04-27-2025 Note Date & KvtpSamqUtvklavj22-08-0260 Evaluation note* Type Assessment Date assessment 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 Right. Condition: established, stable [facility] Work Phone: [phone] History of Present illness Narrative* Encounter Date Complaint History Of Prese nt Illness AMD The 65 year old female presents for treatment (2-3) of AMD in the right eye. Patient states vision is stable, denies any new onset of flashes, floaters, or ocular pain. AMD The 65 year old female presents for treatment of AMD in the right eye. Patient is s/p treatment on 02/23/2025 currently on a 4 week interval. Patient states vision stable, denies any new onset of flashes, floater, or ocular pain. Patient does not use eye drops at home. Exudative ARMD The 65 year old female presents for 4 week evaluation of Exudative ARMD in the right eye. patient states that her vision is stable. Patient states she does have floaters and will occasionally have some flashes of light. Exudative ARMD The 65 year old female presents for 4 week evaluation of Exudative ARMD in the right and left eye. Patient denies vision decrease or new distortion. Patient states she see's flashes of light in the right only in the evening, new since last visit. Patient states she has a lot of floaters. Patient denies any ocular pain. Exudative ARMD The 64 year old female presents for management of Exudative ARMD in the right eye. Non Exudative ARMD left eye . Patient states that she believes her vision is better. Patient states that she does have floaters. Patient states she recently noticed some flashing in her right eye vision, but usually in the evening. Patient denies any ocular pain. AMD The 64 year old female presents for evaluation of AMD in the right eye. Patient states vision stable. Patient denies any onset flashes, floaters, or ocular pain. Patient does not use eyedrops. macular degeneration The 64 year old female presents for New Patient evaluation of macular degeneration in the right and left eyes. Patient states she has a blurry spot in her right eye. Patient states that she first noticed the issue about a month ago. Patient states she has always had floaters, the come and go, patient denies any flashes of light. reports no visual changes The art simon reports no visual changes in the right eye and left eye since her last visit 9 months ago. It affects both near and far vision. The symptom is constant. The condition is stable. In addition, the condition is associated with daily activity and chores. The patient denies flashes, eye pain. retinal neovasculari zation with edema The 57 year old female presents for evaluation of retinal neovascularization with edema in the right eye. stable vision The patient note s of stable vision in both eyes since her last visit about 6 months ago. It affects both near and far vision. The symptom is constant. It occurs all the time. In addition, the condition is associated with daily activity and chores. The patient denies change in vision, eye pain, flashes. CNV The 56 year old female presents for evaluation of CNV in the right eye. trouble focusing The patient com plains of trouble focusing in the right eye. It started about 4 months ago . It affects both near and far vision. The symptom is constant. It occurs persistently. The condition is not any better. In addition, the condition is associated with daily activity and chores. CNV The 56 year old female presents for evaluation of CNV in the right eye. stable vision The patient comp lains of stable vision in the left eye. stable vision without distortion The patient complains of stable vision without distortion in the right eye. It started about 3 months ago. The onset was progressive. It affects OU. The symptom is constant. It occurs when focusing. The condition is limiting patient's ability to read. The condition is described as fuzzy vision. In addition, the condition is associated with daily activity and chores. CNV The 55 Years old female presents for evaluation of CNV in the right eye. reports no vision changes The art barnesdionne reports no vision changes in the right eye and left eye since last visit 2 months ago . It affects both near and far vision. The symptom is constant. It occurs when focusing. The condition is stable. CNV The 55 year old female presents for evaluation of CNV in the right eye. trouble focusing The patient com plains of trouble focusing still with her right eye open. She frequently closes her right eye to avoid double vision and to see better with the left eye only. The symptoms are worse when driving at night with lights and in the daytime with bright lights around her. The symptoms may be slightly improved since her last visit or over the last one month or so. No eye pain but she feels her eye strain is causing occasional headaches. SRNVM This 55 year old female presents for evaluation of SRNVM in the right eye. increase in vision The patient r eports of an increase in vision in the right eye. It started about 7 weeks ago . The onset was gradual. It affects near vision. The symptom is constant. The condition is improving. In addition, the condition is associated with all activity. CNV with retinal edema The 55 ye ar old female presents for an evaluation of CNV with retinal edema in the right eye. no changes The patient comp lains of no changes in the right eye. It started about 5 weeks ago . It affects both near and far vision. The condition is not any better. In addition, the condition is associated with daily activity and chores. The patient denies change in vision. CNV The 55 Years old female presents for evaluation of CNV in the right eye. decreased vision The patient com plains of decreased vision in the right eye. It started about 1 month ago . The onset was sudden. It affects both near and far vision. The symptom is constant. It occurs when focusing. In addition, the condition is associated with daily activity and chores. referred for SRNV The 54 year ol d female presents for evaluation of referred for SRNV in the right eye. 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 Impression/Plan Related to Early dry stage nonexudative age-related macular degeneration of left eye Impression/Plan Related to PVD ( posterior vitreous detachment), both eyes Impression/Plan Related to Age-r elated nuclear cataract of both eyes Return 4 weeks DFE/OCT/ Poss AVN OD Related to Exudative age-related macular 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 Impression/Plan Related to 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 Impression/Plan Related to 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 Impression/Plan Related to Age-r elated nuclear cataract of both eyes Impression/Plan Related to 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 Referral for surgical intervention is not indicated at this time. Related to Age-related nuclear cataract, bilateral Impression/Plan - Se condary to choroidal neovasculaization. 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 There is no evidence of a retinal tear, break or detachment. Patient instructed to call the office immediately if any symptoms noted. Related to Vitreous degeneration, right eye Impression/Plan - No evidence of recurrent Idiopathic Choroidal Neovascularization noted on examination and testing. The patient has a history anti-VEGF Avastin treatments in 2014; no further treatment is indicated today. Will continue to monitor. The patient will return to Dr. Woodson for ongoing eye care and to A on an as needed basis. The patient was instructed to call immediately if any progressive central or peripheral vision loss, new distortion, or other ophthalmic symptoms develop. Related to Retinal neovascularization, unspecified, right eye Follow up - Return PRN Related t o Retinal neovascularization, unspecified, right eye Return in 8-[address] Hodges for follow up exam and OCT. Related to Retinal neovascularization, unspecified, right eye Impression/Plan - No t affecting vision, referral for surgical intervention is not indicated at this time. Related to Age-related nuclear cataract, bilateral Impression/Plan - Th ere is no evidence of a retinal tear, break or detachment. Related to Vitreous degeneration, right eye Impression/Plan - No recurrent edema was noted on today's clinical or diagnostic testing. See plan #1 Related to Retinal edema Impression/Plan - Ba sed on today's clinical and diagnostic testing ther is no evidence of recurrent Idiopathic Choroidal Neovascularization. The patient was treated with anti-VEGF Avastin treatments, and no further treatment is indicated today. Will continue to monitor. Advised patient to call [facility] with vision changes or the onset of pain. Related to Retinal neovascularization, unspecified, right eye Follow up - Return i n 8-[address] Hodges for follow up exam and OCT. Related to Retinal neovascularization, unspecified, right eye - Based on today's c linical and diagnostic testing, resolved Idiopathic Choroidal Neovascularization was noted and discussed with the patient. The patient has responded well to the antiVEGF treatments, and no treatment is indicated today. Will continue to monitor. Advised patient to call [facility] with vision changes or the onset of pain. Related to Retinal neovascularization, unspecified, right eye - Regular follow up appointments with the patient's comprehensive eye doctor were recommended to monitor the patients cataract for progression. Referral for surgical intervention is not indicated at this time. Related to Age-related nuclear cataract, bilateral - There is no eviden ce of a retinal tear, break or detachment. Appropriate follow up with primary eye healthcare associate was recommended. Related to Vitreous degeneration, right eye - Return in [address] Hodges for follow up exam with OCT. Related to Retinal neovascularization, unspecified, right eye - No recurrent edema was noted on today's clinical or diagnostic testing. See plan #1 Related to Retinal edema - There is no eviden ce of a retinal tear, break or detachment. Appropriate follow up with primary eye healthcare associate was recommended. Related to Vitreous degeneration, right eye - No recurrent edema was noted on today's clinical or diagnostic testing. See plan #1 Related to Retinal edema - Based on today's c linical and diagnostic testing, resolved Idiopathic Choroidal Neovascularization was noted and discussed with the patient. The patient has responded well to the antiVEGF treatments and no treatment is indicated today, the patient agrees. Will continue to monitor. Advised patient to call [facility] with vision changes or the onset of pain. Related to Retinal neovascularization, unspecified, right eye - Return in [address] Hodges for follow up exam with OCT. Related to Retinal neovascularization, unspecified, right eye - Not significantly affecting vi kelvin. Related to Age-related nuclear cataract, bilateral - Not significantly affecting vi kelvin. Related to Age-related nuclear cataract, bilateral - Secondary to Idiop athic CNV. See plan #1 Related to Retinal edema - Based on today's c linical and diagnostic testing, improved Idiopathic Choroidal Neovascularization was noted. The patient has responded well to the antiVEGF treatment. Recommend repeat intravitreal Avastin therapy. Risks, benefits, and alternatives discussed. Patient agreed to treatment and tolerated the procedure well today. Advised patient to call [facility] with vision changes or the onset of pain. Related to Retinal neovascularization, unspecified, right eye - Return in [address] Hodges for eval, OCT and possible Avastin injection. Related to Retinal neovascularization, unspecified, right eye - There is no eviden ce of a retinal tear, break or detachment. Appropriate follow up with primary eye healthcare associate was recommended. Related to Vitreous degeneration, right eye - Based on today's c linical and diagnostic testing, improved Idiopathic Choroidal Neovascularization was noted. The patient has responded well to the antiVEGF treatment. 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 This may improve over time. Recommend repeat intravitreal Avastin therapy. Risks, benefits, and alternatives discussed. Patient agreed to treatment and tolerated the procedure well today. Advised patient to call [facility] with vision changes or the onset of pain. Related to CNV-Choroidal neovascularisation - Return in [address] Hodges for follow up exam with OCT. Related to CNV-Choroidal neovascularisation - There is no eviden ce of a retinal tear, break or detachment. Related to PVD (Vitreous degeneration) - Secondary to Idiop athic CNV. See plan #1 Related to Retinal edema - Not affecting visi on at this time. Will continue to monitor for progression. Related to Senile nuclear sclerosis - Not affecting visi on at this time. Monitor. Related to Senile nuclear sclerosis - There is no eviden ce of a retinal tear, break or detachment. Related to PVD (Vitreous degeneration) - Secondary to Idiop athic CNV. See plan #1 Related to Retinal edema - Based on today's c linical and diagnostic testing, inactive Idiopathic Choroidal Neovascularization was noted. Patient has responded well ariel antiVEGF treatment and no further treatment is needed. Will continue to monitor. Related to CNV-Choroidal neovascularisation - Return in [address] Hodges for follow up exam with OCT. Related to CNV-Choroidal neovascularisation - Secondary to Idiop athic CNV. See plan #1 Related to Retinal edema - Posterior vitreous detachment was noted on examination today and explained to the patient. There is no evidence of a retinal tear, break or detachment. Related to PVD (Vitreous degeneration) - The progression of cataracts was noted on examination today and discussed with the patient. Not affecting vision at this time. Related to Senile nuclear sclerosis - *Based on today's clinical and diagnostic testing, additional antiVEGF treatment for Idiopathic Choroidal Neovascularization was recommended and explained to the patient. Decreased edema and hemorrhage noted on examination and testing today. The risks, benefits, and alternatives were discussed. The goal of a treat and extend regimen was explained and will be implemented as long as good treatment response and resolution of subretinal blood and subretinal fluid and/or subRPE fluid is observed. The off-label status of Avastin and use of a compounding pharmacy was discussed. The patient chose to proceed and received an intravitreal injection of Avastin today. The patient tolerated the procedure well and has been instructed to call immediately with the onset of severe pain, non-watery discharge or visual loss. She was advised to follow an Amsler grid daily. Related to CNV-Choroidal neovascularisation - Return in [address] Hodges for follow up exam with OCT. The need for additional Avastin will be determined at that time. Related to CNV-Choroidal neovascularisation - Posterior vitreous detachment was noted on examination today and explained to the patient. There is no evidence of a retinal tear, break or detachment. Related to PVD (Vitreous degeneration) - The progression of cataracts was noted on examination today and discussed with the patient. Not affecting vision at this time. Related to Senile nuclear sclerosis - Based on today's c linical and diagnostic testing, initial antiVEGF treatment for Idiopathic Choroidal Neovascularization was recommended and explained to the patient. The risks, benefits, and alternatives were discussed. The patient understands that the initial regimen will consist of a series of monthly injections. The goal of a treat and extend regimen was explained and will be implemented as long as good treatment response and resolution of subretinal blood and subretinal fluid and/or subRPE fluid is observed. The off-label status of Avastin and use of a compounding pharmacy was discussed. The patient chose to proceed and received an intravitreal injection of Avastin today. The patient tolerated the procedure well and has been instructed to call immediately with the onset of severe pain, non-watery discharge or visual loss. She was advised to follow an Amsler grid daily. Educational materials provided:Amsler grid. Related to CNV-Choroidal neovascularisation - Secondary to Idiop athic CNV. See plan #1 Related to Retinal edema - Return in [address] Hodges for follow up exam with FA. The need for additional Avastin OD will be determined at that time. Related to CNV-Choroidal neovascularisation [facility] Work Phone: [phone] Evaluation note* Type Assessment Date assessment 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 Right. Condition: established, stable [facility] Work Phone: [phone] History of Present illness Narrative* Encounter Date Complaint History Of Prese nt Illness Exudative ARMD The 65 year old female presents for 4 week evaluation of Exudative ARMD in the right eye. patient states that her vision is stable. Patient states she does have floaters and will occasionally have some flashes of light. Exudative ARMD The 65 year old female presents for 4 week evaluation of Exudative ARMD in the right and left eye. Patient denies vision decrease or new distortion. Patient states she see's flashes of light in the right only in the evening, new since last visit. Patient states she has a lot of floaters. Patient denies any ocular pain. Exudative ARMD The 64 year old female presents for management of Exudative ARMD in the right eye. Non Exudative ARMD left eye . Patient states that she believes her vision is better. Patient states that she does have floaters. Patient states she recently noticed some flashing in her right eye vision, but usually in the evening. Patient denies any ocular pain. AMD The 64 year old female presents for evaluation of AMD in the right eye. Patient states vision stable. Patient denies any onset flashes, floaters, or ocular pain. Patient does not use eyedrops. macular degeneration The 64 year old female presents for New Patient evaluation of macular degeneration in the right and left eyes. Patient states she has a blurry spot in her right eye. Patient states that she first noticed the issue about a month ago. Patient states she has always had floaters, the come and go, patient denies any flashes of light. reports no visual changes The art simon reports no visual changes in the right eye and left eye since her last visit 9 months ago. It affects both near and far vision. The symptom is constant. The condition is stable. In addition, the condition is associated with daily activity and chores. The patient denies flashes, eye pain. retinal neovasculari zation with edema The 57 year old female presents for evaluation of retinal neovascularization with edema in the right eye. stable vision The patient note s of stable vision in both eyes since her last visit about 6 months ago. It affects both near and far vision. The symptom is constant. It occurs all the time. In addition, the condition is associated with daily activity and chores. The patient denies change in vision, eye pain, flashes. CNV The 56 year old female presents for evaluation of CNV in the right eye. trouble focusing The patient com plains of trouble focusing in the right eye. It started about 4 months ago . It affects both near and far vision. The symptom is constant. It occurs persistently. The condition is not any better. In addition, the condition is associated with daily activity and chores. CNV The 56 year old female presents for evaluation of CNV in the right eye. stable vision The patient comp lains of stable vision in the left eye. stable vision without distortion The patient complains of stable vision without distortion in the right eye. It started about 3 months ago. The onset was progressive. It affects OU. The symptom is constant. It occurs when focusing. The condition is limiting patient's ability to read. The condition is described as fuzzy vision. In addition, the condition is associated with daily activity and chores. CNV The 55 Years old female presents for evaluation of CNV in the right eye. reports no vision changes The art simon reports no vision changes in the right eye and left eye since last visit 2 months ago . It affects both near and far vision. The symptom is constant. It occurs when focusing. The condition is stable. CNV The 55 year old female presents for evaluation of CNV in the right eye. trouble focusing The patient com plains of trouble focusing still with her right eye open. She frequently closes her right eye to avoid double vision and to see better with the left eye only. The symptoms are worse when driving at night with lights and in the daytime with bright lights around her. The symptoms may be slightly improved since her last visit or over the last one month or so. No eye pain but she feels her eye strain is causing occasional headaches. SRNVM This 55 year old female presents for evaluation of SRNVM in the right eye. increase in vision The patient r eports of an increase in vision in the right eye. It started about 7 weeks ago . The onset was gradual. It affects near vision. The symptom is constant. The condition is improving. In addition, the condition is associated with all activity. CNV with retinal edema The 55 ye ar old female presents for an evaluation of CNV with retinal edema in the right eye. no changes The patient comp lains of no changes in the right eye. It started about 5 weeks ago . It affects both near and far vision. The condition is not any better. In addition, the condition is associated with daily activity and chores. The patient denies change in vision. CNV The 55 Years old female presents for evaluation of CNV in the right eye. decreased vision The patient com plains of decreased vision in the right eye. It started about 1 month ago . The onset was sudden. It affects both near and far vision. The symptom is constant. It occurs when focusing. In addition, the condition is associated with daily activity and chores. referred for SRNV The 54 year ol d female presents for evaluation of referred for SRNV in the right eye. 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 Impression/Plan Related to Early dry stage nonexudative age-related macular degeneration of left eye Impression/Plan Related to PVD ( posterior vitreous detachment), both eyes Impression/Plan Related to Age-r elated nuclear cataract of both eyes Return 4 weeks DFE/OCT/ Poss AVN OD Related to Exudative age-related macular 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 Impression/Plan Related to 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 Impression/Plan Related to 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 The patient has a history anti-VEGF Avastin treatments in 2014; no further treatment is indicated today. Will continue to monitor. The patient will return to Dr. Woodson for ongoing eye care and to A on an as needed basis. The patient was instructed to call immediately if any progressive central or peripheral vision loss, new distortion, or other ophthalmic symptoms develop. Related to Retinal neovascularization, unspecified, right eye Impression/Plan - Po sterior vitreous detachment was noted on examination today. There is no evidence of a retinal tear, break or detachment. Patient instructed to call the office immediately if any symptoms noted. Related to Vitreous degeneration, right eye Impression/Plan - Se condary to choroidal neovasculaization. 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 Referral for surgical intervention is not indicated at this time. Related to Age-related nuclear cataract, bilateral Follow up - Return PRN Related t o Retinal neovascularization, unspecified, right eye Return in 8-[address] Hodges for follow up exam and OCT. Related to Retinal neovascularization, unspecified, right eye Impression/Plan - No recurrent edema was noted on today's clinical or diagnostic testing. See plan #1 Related to Retinal edema Impression/Plan - Th ere is no evidence of a retinal tear, break or detachment. Related to Vitreous degeneration, right eye Impression/Plan - No t affecting vision, referral for surgical intervention is not indicated at this time. Related to Age-related nuclear cataract, bilateral Impression/Plan - Ba sed on today's clinical and diagnostic testing ther is no evidence of recurrent Idiopathic Choroidal Neovascularization. The patient was treated with anti-VEGF Avastin treatments, and no further treatment is indicated today. Will continue to monitor. Advised patient to call [facility] with vision changes or the onset of pain. Related to Retinal neovascularization, unspecified, right eye Follow up - Return i n 8-[address] Hodges for follow up exam and OCT. Related to Retinal neovascularization, unspecified, right eye - No recurrent edema was noted on today's clinical or diagnostic testing. See plan #1 Related to Retinal edema - Return in [address] Hodges for follow up exam with OCT. Related to Retinal neovascularization, unspecified, right eye - There is no eviden ce of a retinal tear, break or detachment. Appropriate follow up with primary eye healthcare associate was recommended. Related to Vitreous degeneration, right eye - Regular follow up appointments with the patient's comprehensive eye doctor were recommended to monitor the patients cataract for progression. Referral for surgical intervention is not indicated at this time. Related to Age-related nuclear cataract, bilateral - Based on today's c linical and diagnostic testing, resolved Idiopathic Choroidal Neovascularization was noted and discussed with the patient. The patient has responded well to the antiVEGF treatments, and no treatment is indicated today. Will continue to monitor. Advised patient to call [facility] with vision changes or the onset of pain. Related to Retinal neovascularization, unspecified, right eye - Return in [address] Hodges for follow up exam with OCT. Related to Retinal neovascularization, unspecified, right eye - Based on today's c linical and diagnostic testing, resolved Idiopathic Choroidal Neovascularization was noted and discussed with the patient. The patient has responded well to the antiVEGF treatments and no treatment is indicated today, the patient agrees. Will continue to monitor. Advised patient to call [facility] with vision changes or the onset of pain. Related to Retinal neovascularization, unspecified, right eye - No recurrent edema was noted on today's clinical or diagnostic testing. See plan #1 Related to Retinal edema - There is no eviden ce of a retinal tear, break or detachment. Appropriate follow up with primary eye healthcare associate was recommended. Related to Vitreous degeneration, right eye - Not significantly affecting vi kelvin. Related to Age-related nuclear cataract, bilateral - There is no eviden ce of a retinal tear, break or detachment. Appropriate follow up with primary eye healthcare associate was recommended. Related to Vitreous degeneration, right eye - Return in [address] Hodges for eval, OCT and possible Avastin injection. Related to Retinal neovascularization, unspecified, right eye - Based on today's c linical and diagnostic testing, improved Idiopathic Choroidal Neovascularization was noted. The patient has responded well to the antiVEGF treatment. Recommend repeat intravitreal Avastin therapy. Risks, benefits, and alternatives discussed. Patient agreed to treatment and tolerated the procedure well today. Advised patient to call [facility] with vision changes or the onset of pain. 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 See plan #1 Related to Retinal edema - Not significantly affecting vi kelvin. Related to Age-related nuclear cataract, bilateral - Not affecting visi on at this time. Will continue to monitor for progression. Related to Senile nuclear sclerosis - Secondary to Idiop athic CNV. See plan #1 Related to Retinal edema - There is no eviden ce of a retinal tear, break or detachment. Related to PVD (Vitreous degeneration) - Return in [address] Hodges for follow up exam with OCT. Related to CNV-Choroidal neovascularisation - Based on today's c linical and diagnostic testing, improved Idiopathic Choroidal Neovascularization was noted. The patient has responded well to the antiVEGF treatment. 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 This may improve over time. Recommend repeat intravitreal Avastin therapy. Risks, benefits, and alternatives discussed. Patient agreed to treatment and tolerated the procedure well today. Advised patient to call [facility] with vision changes or the onset of pain. Related to CNV-Choroidal neovascularisation - Return in [address] Hodges for follow up exam with OCT. Related to CNV-Choroidal neovascularisation - Based on today's c linical and diagnostic testing, inactive Idiopathic Choroidal Neovascularization was noted. Patient has responded well ariel antiVEGF treatment and no further treatment is needed. Will continue to monitor. Related to CNV-Choroidal neovascularisation - There is no eviden ce of a retinal tear, break or detachment. Related to PVD (Vitreous degeneration) - Secondary to Idiop athic CNV. See plan #1 Related to Retinal edema - Not affecting visi on at this time. Monitor. Related to Senile nuclear sclerosis - Secondary to Idiop athic CNV. See plan #1 Related to Retinal edema - Posterior vitreous detachment was noted on examination today and explained to the patient. There is no evidence of a retinal tear, break or detachment. Related to PVD (Vitreous degeneration) - The progression of cataracts was noted on examination today and discussed with the patient. Not affecting vision at this time. Related to Senile nuclear sclerosis - *Based on today's clinical and diagnostic testing, additional antiVEGF treatment for Idiopathic Choroidal Neovascularization was recommended and explained to the patient. Decreased edema and hemorrhage noted on examination and testing today. The risks, benefits, and alternatives were discussed. The goal of a treat and extend regimen was explained and will be implemented as long as good treatment response and resolution of subretinal blood and subretinal fluid and/or subRPE fluid is observed. The off-label status of Avastin and use of a compounding pharmacy was discussed. The patient chose to proceed and received an intravitreal injection of Avastin today. The patient tolerated the procedure well and has been instructed to call immediately with the onset of severe pain, non-watery discharge or visual loss. She was advised to follow an Amsler grid daily. Related to CNV-Choroidal neovascularisation - Return in [address] Hodges for follow up exam with OCT. The need for additional Avastin will be determined at that time. Related to CNV-Choroidal neovascularisation - Secondary to Idiop athic CNV. See plan #1 Related to Retinal edema - Based on today's c linical and diagnostic testing, initial antiVEGF treatment for Idiopathic Choroidal Neovascularization was recommended and explained to the patient. The risks, benefits, and alternatives were discussed. The patient understands that the initial regimen will consist of a series of monthly injections. The goal of a treat and extend regimen was explained and will be implemented as long as good treatment response and resolution of subretinal blood and subretinal fluid and/or subRPE fluid is observed. The off-label status of Avastin and use of a compounding pharmacy was discussed. The patient chose to proceed and received an intravitreal injection of Avastin today. The patient tolerated the procedure well and has been instructed to call immediately with the onset of severe pain, non-watery discharge or visual loss. She was advised to follow an Amsler grid daily. Educational materials provided:Amsler grid. Related to CNV-Choroidal neovascularisation - Posterior vitreous detachment was noted on examination today and explained to the patient. There is no evidence of a retinal tear, break or detachment. Related to PVD (Vitreous degeneration) - The progression of cataracts was noted on examination today and discussed with the patient. Not affecting vision at this time. Related to Senile nuclear sclerosis - Return in [address] Hodges for follow up exam with FA. The need for additional Avastin OD will be determined at that time. 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 Right. Condition: established, stable assessment Early dry stage none xudative age-related macular degeneration of left eye impression Early dry stage none xudative age-related macular degeneration of left eye: H35.3121. Left. Condition: established, stable assessment PVD (posterior vitreous detachme nt), both eyes impression PVD (posterior vitre ous detachment), both eyes: H43.813. Bilateral. Condition: established, stable assessment Age-related nuclear cataract of both eyes impression Age-related nuclear cataract of both eyes: H25.13. Bilateral. Condition: mild [facility] Work Phone: [phone] History of Present illness Narrative* Encounter Date Complaint History Of Prese nt Illness Exudative ARMD The 65 year old female presents for 4 week evaluation of Exudative ARMD in the right and left eye. Patient denies vision decrease or new distortion. Patient states she see's flashes of light in the right only in the evening, new since last visit. Patient states she has a lot of floaters. Patient denies any ocular pain. Exudative ARMD The 64 year old female presents for management of Exudative ARMD in the right eye. Non Exudative ARMD left eye . Patient states that she believes her vision is better. Patient states that she does have floaters. Patient states she recently noticed some flashing in her right eye vision, but usually in the evening. Patient denies any ocular pain. AMD The 64 year old female presents for evaluation of AMD in the right eye. Patient states vision stable. Patient denies any onset flashes, floaters, or ocular pain. Patient does not use eyedrops. macular degeneration The 64 year old female presents for New Patient evaluation of macular degeneration in the right and left eyes. Patient states she has a blurry spot in her right eye. Patient states that she first noticed the issue about a month ago. Patient states she has always had floaters, the come and go, patient denies any flashes of light. reports no visual changes The art simon reports no visual changes in the right eye and left eye since her last visit 9 months ago. It affects both near and far vision. The symptom is constant. The condition is stable. In addition, the condition is associated with daily activity and chores. The patient denies flashes, eye pain. retinal neovasculari zation with edema The 57 year old female presents for evaluation of retinal neovascularization with edema in the right eye. stable vision The patient note s of stable vision in both eyes since her last visit about 6 months ago. It affects both near and far vision. The symptom is constant. It occurs all the time. In addition, the condition is associated with daily activity and chores. The patient denies change in vision, eye pain, flashes. CNV The 56 year old female presents for evaluation of CNV in the right eye. trouble focusing The patient com plains of trouble focusing in the right eye. It started about 4 months ago . It affects both near and far vision. The symptom is constant. It occurs persistently. The condition is not any better. In addition, the condition is associated with daily activity and chores. CNV The 56 year old female presents for evaluation of CNV in the right eye. stable vision The patient comp lains of stable vision in the left eye. stable vision without distortion The patient complains of stable vision without distortion in the right eye. It started about 3 months ago. The onset was progressive. It affects OU. The symptom is constant. It occurs when focusing. The condition is limiting patient's ability to read. The condition is described as fuzzy vision. In addition, the condition is associated with daily activity and chores. CNV The 55 Years old female presents for evaluation of CNV in the right eye. reports no vision changes The art simon reports no vision changes in the right eye and left eye since last visit 2 months ago . It affects both near and far vision. The symptom is constant. It occurs when focusing. The condition is stable. CNV The 55 year old female presents for evaluation of CNV in the right eye. trouble focusing The patient com plains of trouble focusing still with her right eye open. She frequently closes her right eye to avoid double vision and to see better with the left eye only. The symptoms are worse when driving at night with lights and in the daytime with bright lights around her. The symptoms may be slightly improved since her last visit or over the last one month or so. No eye pain but she feels her eye strain is causing occasional headaches. SRNVM This 55 year old female presents for evaluation of SRNVM in the right eye. increase in vision The patient r eports of an increase in vision in the right eye. It started about 7 weeks ago . The onset was gradual. It affects near vision. The symptom is constant. The condition is improving. In addition, the condition is associated with all activity. CNV with retinal edema The 55 ye ar old female presents for an evaluation of CNV with retinal edema in the right eye. no changes The patient comp lains of no changes in the right eye. It started about 5 weeks ago . It affects both near and far vision. The condition is not any better. In addition, the condition is associated with daily activity and chores. The patient denies change in vision. CNV The 55 Years old female presents for evaluation of CNV in the right eye. decreased vision The patient com plains of decreased vision in the right eye. It started about 1 month ago . The onset was sudden. It affects both near and far vision. The symptom is constant. It occurs when focusing. In addition, the condition is associated with daily activity and chores. referred for SRNV The 54 year ol d female presents for evaluation of referred for SRNV in the right eye. [facility] Work Phone: [phone] Instructions* Date Instruction Additional Infor mikhail Impression/Plan Related to 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 Impression/Plan Related to Early dry stage nonexudative age-related macular degeneration of left eye Impression/Plan Related to PVD ( posterior vitreous detachment), both eyes Impression/Plan Related to Age-r elated nuclear cataract of both eyes Return 4 weeks DFE/OCT/ Poss AVN OD Related to Exudative age-related macular 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 Impression/Plan Related to 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 Impression/Plan Related to 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 Impression/Plan Related to 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 Impression/Plan Related to Age-r elated nuclear cataract of both eyes Impression/Plan Related to PVD ( posterior vitreous detachment), both eyes Impression/Plan Related to Early dry stage nonexudative age-related macular degeneration of left eye Return PRN Related to Retin al neovascularization, unspecified, right eye Impression/Plan - No evidence of recurrent Idiopathic Choroidal Neovascularization noted on examination and testing. The patient has a history anti-VEGF Avastin treatments in 2014; no further treatment is indicated today. Will continue to monitor. The patient will return to Dr. Woodson for ongoing eye care and to [facility] on an as needed basis. The patient was instructed to call immediately if any progressive central or peripheral vision loss, new distortion, or other ophthalmic symptoms develop. Related to Retinal neovascularization, unspecified, right eye Impression/Plan - Po sterior vitreous detachment was noted on examination today. There is no evidence of a retinal tear, break or detachment. Patient instructed to call the office immediately if any symptoms noted. Related to Vitreous degeneration, right eye Impression/Plan - Se condary to choroidal neovasculaization. 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 Referral for surgical intervention is not indicated at this time. Related to Age-related nuclear cataract, bilateral Follow up - Return PRN Related t o Retinal neovascularization, unspecified, right eye Return in 8-[address] Hodges for follow up exam and OCT. Related to Retinal neovascularization, unspecified, right eye Impression/Plan - No t affecting vision, referral for surgical intervention is not indicated at this time. Related to Age-related nuclear cataract, bilateral Impression/Plan - Th ere is no evidence of a retinal tear, break or detachment. Related to Vitreous degeneration, right eye Impression/Plan - No recurrent edema was noted on today's clinical or diagnostic testing. See plan #1 Related to Retinal edema Impression/Plan - Ba sed on today's clinical and diagnostic testing ther is no evidence of recurrent Idiopathic Choroidal Neovascularization. The patient was treated with anti-VEGF Avastin treatments, and no further treatment is indicated today. Will continue to monitor. Advised patient to call [facility] with vision changes or the onset of pain. Related to Retinal neovascularization, unspecified, right eye Follow up - Return i n 8-[address] Hodges for follow up exam and OCT. Related to Retinal neovascularization, unspecified, right eye - Based on today's c linical and diagnostic testing, resolved Idiopathic Choroidal Neovascularization was noted and discussed with the patient. The patient has responded well to the antiVEGF treatments, and no treatment is indicated today. Will continue to monitor. Advised patient to call [facility] with vision changes or the onset of pain. Related to Retinal neovascularization, unspecified, right eye - Regular follow up appointments with the patient's comprehensive eye doctor were recommended to monitor the patients cataract for progression. Referral for surgical intervention is not indicated at this time. Related to Age-related nuclear cataract, bilateral - There is no eviden ce of a retinal tear, break or detachment. Appropriate follow up with primary eye healthcare associate was recommended. Related to Vitreous degeneration, right eye - Return in [address] Hodges for follow up exam with OCT. Related to Retinal neovascularization, unspecified, right eye - No recurrent edema was noted on today's clinical or diagnostic testing. See plan #1 Related to Retinal edema - Based on today's c linical and diagnostic testing, resolved Idiopathic Choroidal Neovascularization was noted and discussed with the patient. The patient has responded well to the antiVEGF treatments and no treatment is indicated today, the patient agrees. Will continue to monitor. Advised patient to call [facility] with vision changes or the onset of pain. Related to Retinal neovascularization, unspecified, right eye - No recurrent edema was noted on today's clinical or diagnostic testing. See plan #1 Related to Retinal edema - There is no eviden ce of a retinal tear, break or detachment. Appropriate follow up with primary eye healthcare associate was recommended. Related to Vitreous degeneration, right eye - Return in [address] Hodges for follow up exam with OCT. Related to Retinal neovascularization, unspecified, right eye - Not significantly affecting vi kelvin. Related to Age-related nuclear cataract, bilateral - Not significantly affecting vi kelvin. Related to Age-related nuclear cataract, bilateral - Secondary to Idiop athic CNV. See plan #1 Related to Retinal edema - Based on today's c linical and diagnostic testing, improved Idiopathic Choroidal Neovascularization was noted. The patient has responded well to the antiVEGF treatment. Recommend repeat intravitreal Avastin therapy. Risks, benefits, and alternatives discussed. Patient agreed to treatment and tolerated the procedure well today. Advised patient to call [facility] with vision changes or the onset of pain. Related to Retinal neovascularization, unspecified, right eye - Return in [address] Hodges for eval, OCT and possible Avastin injection. Related to Retinal neovascularization, unspecified, right eye - There is no eviden ce of a retinal tear, break or detachment. Appropriate follow up with primary eye healthcare associate was recommended. Related to Vitreous degeneration, right eye - Secondary to Idiop athic CNV. See plan #1 Related to Retinal edema - There is no eviden ce of a retinal tear, break or detachment. Related to PVD (Vitreous degeneration) - Based on today's c linical and diagnostic testing, improved Idiopathic Choroidal Neovascularization was noted. The patient has responded well to the antiVEGF treatment. 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 This may improve over time. Recommend repeat intravitreal Avastin therapy. Risks, benefits, and alternatives discussed. Patient agreed to treatment and tolerated the procedure well today. Advised patient to call [facility] with vision changes or the onset of pain. Related to CNV-Choroidal neovascularisation - Return in [address] Hodges for follow up exam with OCT. Related to CNV-Choroidal neovascularisation - Not affecting visi on at this time. Will continue to monitor for progression. Related to Senile nuclear sclerosis - Return in [address] Hodges for follow up exam with OCT. Related to CNV-Choroidal neovascularisation - Based on today's c linical and diagnostic testing, inactive Idiopathic Choroidal Neovascularization was noted. Patient has responded well ariel antiVEGF treatment and no further treatment is needed. Will continue to monitor. Related to CNV-Choroidal neovascularisation - There is no eviden ce of a retinal tear, break or detachment. Related to PVD (Vitreous degeneration) - Secondary to Idiop athic CNV. See plan #1 Related to Retinal edema - Not affecting visi on at this time. Monitor. Related to Senile nuclear sclerosis - The progression of cataracts was noted on examination today and discussed with the patient. Not affecting vision at this time. Related to Senile nuclear sclerosis - Posterior vitreous detachment was noted on examination today and explained to the patient. There is no evidence of a retinal tear, break or detachment. Related to PVD (Vitreous degeneration) - Secondary to Idiop athic CNV. See plan #1 Related to Retinal edema - *Based on today's clinical and diagnostic testing, additional antiVEGF treatment for Idiopathic Choroidal Neovascularization was recommended and explained to the patient. Decreased edema and hemorrhage noted on examination and testing today. The risks, benefits, and alternatives were discussed. The goal of a treat and extend regimen was explained and will be implemented as long as good treatment response and resolution of subretinal blood and subretinal fluid and/or subRPE fluid is observed. The off-label status of Avastin and use of a compounding pharmacy was discussed. The patient chose to proceed and received an intravitreal injection of Avastin today. The patient tolerated the procedure well and has been instructed to call immediately with the onset of severe pain, non-watery discharge or visual loss. She was advised to follow an Amsler grid daily. Related to CNV-Choroidal neovascularisation - Return in [address] Hodges for follow up exam with OCT. The need for additional Avastin will be determined at that time. Related to CNV-Choroidal neovascularisation - Based on today's c linical and diagnostic testing, initial antiVEGF treatment for Idiopathic Choroidal Neovascularization was recommended and explained to the patient. The risks, benefits, and alternatives were discussed. The patient understands that the initial regimen will consist of a series of monthly injections. The goal of a treat and extend regimen was explained and will be implemented as long as good treatment response and resolution of subretinal blood and subretinal fluid and/or subRPE fluid is observed. The off-label status of Avastin and use of a compounding pharmacy was discussed. The patient chose to proceed and received an intravitreal injection of Avastin today. The patient tolerated the procedure well and has been instructed to call immediately with the onset of severe pain, non-watery discharge or visual loss. She was advised to follow an Amsler grid daily. Educational materials provided:Amsler grid. Related to CNV-Choroidal neovascularisation - Secondary to Idiop athic CNV. See plan #1 Related to Retinal edema - Return in [address] Hodges for follow up exam with FA. The need for additional Avastin OD will be determined at that time. Related to CNV-Choroidal neovascularisation - The progression of cataracts was noted on examination today and discussed with the patient. Not affecting vision at this time. Related to Senile nuclear sclerosis - Posterior vitreous detachment was noted on examination today and explained to the patient. There is no evidence of a retinal tear, break or detachment. 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 Right [facility] Work Phone: [phone] History of Present illness Narrative* Encounter Date Complaint History Of Prese nt Illness Exudative ARMD The 64 year old female presents for management of Exudative ARMD in the right eye. Non Exudative ARMD left eye . Patient states that she believes her vision is better. Patient states that she does have floaters. Patient states she recently noticed some flashing in her right eye vision, but usually in the evening. Patient denies any ocular pain. AMD The 64 year old female presents for evaluation of AMD in the right eye. Patient states vision stable. Patient denies any onset flashes, floaters, or ocular pain. Patient does not use eyedrops. macular degeneration The 64 year old female presents for New Patient evaluation of macular degeneration in the right and left eyes. Patient states she has a blurry spot in her right eye. Patient states that she first noticed the issue about a month ago. Patient states she has always had floaters, the come and go, patient denies any flashes of light. reports no visual changes The art simon reports no visual changes in the right eye and left eye since her last visit 9 months ago. It affects both near and far vision. The symptom is constant. The condition is stable. In addition, the condition is associated with daily activity and chores. The patient denies flashes, eye pain. retinal neovasculari zation with edema The 57 year old female presents for evaluation of retinal neovascularization with edema in the right eye. stable vision The patient note s of stable vision in both eyes since her last visit about 6 months ago. It affects both near and far vision. The symptom is constant. It occurs all the time. In addition, the condition is associated with daily activity and chores. The patient denies change in vision, eye pain, flashes. CNV The 56 year old female presents for evaluation of CNV in the right eye. trouble focusing The patient com plains of trouble focusing in the right eye. It started about 4 months ago . It affects both near and far vision. The symptom is constant. It occurs persistently. The condition is not any better. In addition, the condition is associated with daily activity and chores. CNV The 56 year old female presents for evaluation of CNV in the right eye. stable vision The patient comp lains of stable vision in the left eye. stable vision without distortion The patient complains of stable vision without distortion in the right eye. It started about 3 months ago. The onset was progressive. It affects OU. The symptom is constant. It occurs when focusing. The condition is limiting patient's ability to read. The condition is described as fuzzy vision. In addition, the condition is associated with daily activity and chores. CNV The 55 Years old female presents for evaluation of CNV in the right eye. reports no vision changes The art simon reports no vision changes in the right eye and left eye since last visit 2 months ago . It affects both near and far vision. The symptom is constant. It occurs when focusing. The condition is stable. CNV The 55 year old female presents for evaluation of CNV in the right eye. trouble focusing The patient com plains of trouble focusing still with her right eye open. She frequently closes her right eye to avoid double vision and to see better with the left eye only. The symptoms are worse when driving at night with lights and in the daytime with bright lights around her. The symptoms may be slightly improved since her last visit or over the last one month or so. No eye pain but she feels her eye strain is causing occasional headaches. SRNVM This 55 year old female presents for evaluation of SRNVM in the right eye. increase in vision The patient r eports of an increase in vision in the right eye. It started about 7 weeks ago . The onset was gradual. It affects near vision. The symptom is constant. The condition is improving. In addition, the condition is associated with all activity. CNV with retinal edema The 55 ye ar old female presents for an evaluation of CNV with retinal edema in the right eye. no changes The patient comp lains of no changes in the right eye. It started about 5 weeks ago . It affects both near and far vision. The condition is not any better. In addition, the condition is associated with daily activity and chores. The patient denies change in vision. CNV The 55 Years old female presents for evaluation of CNV in the right eye. decreased vision The patient com plains of decreased vision in the right eye. It started about 1 month ago . The onset was sudden. It affects both near and far vision. The symptom is constant. It occurs when focusing. In addition, the condition is associated with daily activity and chores. referred for SRNV The 54 year ol d female presents for evaluation of referred for SRNV in the right eye. [facility] Phys[facility] Work Phone: [phone] Instructions* Date Instruction Additional Infor mikhail Return 4 weeks DFE/OCT/ Poss AVN OD Related to Exudative age-related macular 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 Impression/Plan Related to 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 Impression/Plan Related to 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 Impression/Plan Related to Age-r elated nuclear cataract of both eyes Impression/Plan Related to 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 Impression/Plan Related to PVD ( posterior vitreous detachment), both eyes Impression/Plan Related to Early dry stage nonexudative age-related macular degeneration of left eye Return PRN Related to Retin al neovascularization, unspecified, right eye Follow up - Return PRN Related t o Retinal neovascularization, unspecified, right eye Impression/Plan - Re gular follow up appointments with the patient's comprehensive eye doctor were recommended to monitor the patients cataract for progression. Referral for surgical intervention is not indicated at this time. Related to Age-related nuclear cataract, bilateral Impression/Plan - Se condary to choroidal neovasculaization. 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 There is no evidence of a retinal tear, break or detachment. Patient instructed to call the office immediately if any symptoms noted. Related to Vitreous degeneration, right eye Impression/Plan - No evidence of recurrent Idiopathic Choroidal Neovascularization noted on examination and testing. The patient has a history anti-VEGF Avastin treatments in 2014; no further treatment is indicated today. Will continue to monitor. The patient will return to Dr. Woodson for ongoing eye care and to [facility] on an as needed basis. The patient was instructed to call immediately if any progressive central or peripheral vision loss, new distortion, or other ophthalmic symptoms develop. Related to Retinal neovascularization, unspecified, right eye Return in 8-[address] Hodges for follow up exam and OCT. Related to Retinal neovascularization, unspecified, right eye Impression/Plan - Ba sed on today's clinical and diagnostic testing ther is no evidence of recurrent Idiopathic Choroidal Neovascularization. The patient was treated with anti-VEGF Avastin treatments, and no further treatment is indicated today. Will continue to monitor. Advised patient to call [facility] with vision changes or the onset of pain. Related to Retinal neovascularization, unspecified, right eye Follow up - Return i n 8-[address] Hodges for follow up exam and OCT. Related to Retinal neovascularization, unspecified, right eye Impression/Plan - No t affecting vision, referral for surgical intervention is not indicated at this time. Related to Age-related nuclear cataract, bilateral Impression/Plan - Th ere is no evidence of a retinal tear, break or detachment. Related to Vitreous degeneration, right eye Impression/Plan - No recurrent edema was noted on today's clinical or diagnostic testing. See plan #1 Related to Retinal edema - No recurrent edema was noted on today's clinical or diagnostic testing. See plan #1 Related to Retinal edema - Based on today's c linical and diagnostic testing, resolved Idiopathic Choroidal Neovascularization was noted and discussed with the patient. The patient has responded well to the antiVEGF treatments, and no treatment is indicated today. Will continue to monitor. Advised patient to call [facility] with vision changes or the onset of pain. Related to Retinal neovascularization, unspecified, right eye - Regular follow up appointments with the patient's comprehensive eye doctor were recommended to monitor the patients cataract for progression. Referral for surgical intervention is not indicated at this time. Related to Age-related nuclear cataract, bilateral - There is no eviden ce of a retinal tear, break or detachment. Appropriate follow up with primary eye healthcare associate was recommended. Related to Vitreous degeneration, right eye - Return in [address] Hodges for follow up exam with OCT. Related to Retinal neovascularization, unspecified, right eye - Return in [address] Hodges for follow up exam with OCT. Related to Retinal neovascularization, unspecified, right eye - Not significantly affecting vi kelvin. Related to Age-related nuclear cataract, bilateral - There is no eviden ce of a retinal tear, break or detachment. Appropriate follow up with primary eye healthcare associate was recommended. Related to Vitreous degeneration, right eye - No recurrent edema was noted on today's clinical or diagnostic testing. See plan #1 Related to Retinal edema - Based on today's c linical and diagnostic testing, resolved Idiopathic Choroidal Neovascularization was noted and discussed with the patient. The patient has responded well to the antiVEGF treatments and no treatment is indicated today, the patient agrees. Will continue to monitor. Advised patient to call [facility] with vision changes or the onset of pain. Related to Retinal neovascularization, unspecified, right eye - Not significantly affecting vi kelvin. Related to Age-related nuclear cataract, bilateral - Secondary to Idiop athic CNV. See plan #1 Related to Retinal edema - Based on today's c linical and diagnostic testing, improved Idiopathic Choroidal Neovascularization was noted. The patient has responded well to the antiVEGF treatment. Recommend repeat intravitreal Avastin therapy. Risks, benefits, and alternatives discussed. Patient agreed to treatment and tolerated the procedure well today. Advised patient to call [facility] with vision changes or the onset of pain. Related to Retinal neovascularization, unspecified, right eye - Return in [address] Hodges for eval, OCT and possible Avastin injection. Related to Retinal neovascularization, unspecified, right eye - There is no eviden ce of a retinal tear, break or detachment. Appropriate follow up with primary eye healthcare associate was recommended. Related to Vitreous degeneration, right eye - There is no eviden ce of a retinal tear, break or detachment. Related to PVD (Vitreous degeneration) - Secondary to Idiop athic CNV. See plan #1 Related to Retinal edema - Not affecting visi on at this time. Will continue to monitor for progression. Related to Senile nuclear sclerosis - Based on today's c linical and diagnostic testing, improved Idiopathic Choroidal Neovascularization was noted. The patient has responded well to the antiVEGF treatment. 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 This may improve over time. Recommend repeat intravitreal Avastin therapy. Risks, benefits, and alternatives discussed. Patient agreed to treatment and tolerated the procedure well today. Advised patient to call [facility] with vision changes or the onset of pain. Related to CNV-Choroidal neovascularisation - Return in [address] Hodges for follow up exam with OCT. Related to CNV-Choroidal neovascularisation - Based on today's c linical and diagnostic testing, inactive Idiopathic Choroidal Neovascularization was noted. Patient has responded well ariel antiVEGF treatment and no further treatment is needed. Will continue to monitor. Related to CNV-Choroidal neovascularisation - Return in [address] Hodges for follow up exam with OCT. Related to CNV-Choroidal neovascularisation - There is no eviden ce of a retinal tear, break or detachment. Related to PVD (Vitreous degeneration) - Secondary to Idiop athic CNV. See plan #1 Related to Retinal edema - Not affecting visi on at this time. Monitor. Related to Senile nuclear sclerosis - Return in [address] Hodges for follow up exam with OCT. The need for additional Avastin will be determined at that time. Related to CNV-Choroidal neovascularisation - The progression of cataracts was noted on examination today and discussed with the patient. Not affecting vision at this time. Related to Senile nuclear sclerosis - Posterior vitreous detachment was noted on examination today and explained to the patient. There is no evidence of a retinal tear, break or detachment. Related to PVD (Vitreous degeneration) - Secondary to Idiop athic CNV. See plan #1 Related to Retinal edema - *Based on today's clinical and diagnostic testing, additional antiVEGF treatment for Idiopathic Choroidal Neovascularization was recommended and explained to the patient. Decreased edema and hemorrhage noted on examination and testing today. The risks, benefits, and alternatives were discussed. The goal of a treat and extend regimen was explained and will be implemented as long as good treatment response and resolution of subretinal blood and subretinal fluid and/or subRPE fluid is observed. The off-label status of Avastin and use of a compounding pharmacy was discussed. The patient chose to proceed and received an intravitreal injection of Avastin today. The patient tolerated the procedure well and has been instructed to call immediately with the onset of severe pain, non-watery discharge or visual loss. She was advised to follow an Amsler grid daily. Related to CNV-Choroidal neovascularisation - Based on today's c linical and diagnostic testing, initial antiVEGF treatment for Idiopathic Choroidal Neovascularization was recommended and explained to the patient. The risks, benefits, and alternatives were discussed. The patient understands that the initial regimen will consist of a series of monthly injections. The goal of a treat and extend regimen was explained and will be implemented as long as good treatment response and resolution of subretinal blood and subretinal fluid and/or subRPE fluid is observed. The off-label status of Avastin and use of a compounding pharmacy was discussed. The patient chose to proceed and received an intravitreal injection of Avastin today. The patient tolerated the procedure well and has been instructed to call immediately with the onset of severe pain, non-watery discharge or visual loss. She was advised to follow an Amsler grid daily. Educational materials provided:Amsler grid. Related to CNV-Choroidal neovascularisation - Secondary to Idiop athic CNV. See plan #1 Related to Retinal edema - Return in [address] Hodges for follow up exam with FA. The need for additional Avastin OD will be determined at that time. Related to CNV-Choroidal neovascularisation - The progression of cataracts was noted on examination today and discussed with the patient. Not affecting vision at this time. Related to Senile nuclear sclerosis - Posterior vitreous detachment was noted on examination today and explained to the patient. There is no evidence of a retinal tear, break or detachment. Related to PVD (Vitreous degeneration) [facility] Work Phone: [phone] Evaluation note* Type Assessment Date assessment 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 Right [facility] Work Phone: [phone] History of Present illness Narrative* Encounter Date Complaint History Of Prese nt Illness AMD The 64 year old female presents for evaluation of AMD in the right eye. Patient states vision stable. Patient denies any onset flashes, floaters, or ocular pain. Patient does not use eyedrops. macular degeneration The 64 year old female presents for New Patient evaluation of macular degeneration in the right and left eyes. Patient states she has a blurry spot in her right eye. Patient states that she first noticed the issue about a month ago. Patient states she has always had floaters, the come and go, patient denies any flashes of light. reports no visual changes The art simon reports no visual changes in the right eye and left eye since her last visit 9 months ago. It affects both near and far vision. The symptom is constant. The condition is stable. In addition, the condition is associated with daily activity and chores. The patient denies flashes, eye pain. retinal neovasculari zation with edema The 57 year old female presents for evaluation of retinal neovascularization with edema in the right eye. stable vision The patient note s of stable vision in both eyes since her last visit about 6 months ago. It affects both near and far vision. The symptom is constant. It occurs all the time. In addition, the condition is associated with daily activity and chores. The patient denies change in vision, eye pain, flashes. CNV The 56 year old female presents for evaluation of CNV in the right eye. trouble focusing The patient com plains of trouble focusing in the right eye. It started about 4 months ago . It affects both near and far vision. The symptom is constant. It occurs persistently. The condition is not any better. In addition, the condition is associated with daily activity and chores. CNV The 56 year old female presents for evaluation of CNV in the right eye. stable vision The patient comp lains of stable vision in the left eye. stable vision without distortion The patient complains of stable vision without distortion in the right eye. It started about 3 months ago. The onset was progressive. It affects OU. The symptom is constant. It occurs when focusing. The condition is limiting patient's ability to read. The condition is described as fuzzy vision. In addition, the condition is associated with daily activity and chores. CNV The 55 Years old female presents for evaluation of CNV in the right eye. reports no vision changes The art simon reports no vision changes in the right eye and left eye since last visit 2 months ago . It affects both near and far vision. The symptom is constant. It occurs when focusing. The condition is stable. CNV The 55 year old female presents for evaluation of CNV in the right eye. trouble focusing The patient com plains of trouble focusing still with her right eye open. She frequently closes her right eye to avoid double vision and to see better with the left eye only. The symptoms are worse when driving at night with lights and in the daytime with bright lights around her. The symptoms may be slightly improved since her last visit or over the last one month or so. No eye pain but she feels her eye strain is causing occasional headaches. SRNVM This 55 year old female presents for evaluation of SRNVM in the right eye. increase in vision The patient r eports of an increase in vision in the right eye. It started about 7 weeks ago . The onset was gradual. It affects near vision. The symptom is constant. The condition is improving. In addition, the condition is associated with all activity. CNV with retinal edema The 55 ye ar old female presents for an evaluation of CNV with retinal edema in the right eye. no changes The patient comp lains of no changes in the right eye. It started about 5 weeks ago . It affects both near and far vision. The condition is not any better. In addition, the condition is associated with daily activity and chores. The patient denies change in vision. CNV The 55 Years old female presents for evaluation of CNV in the right eye. decreased vision The patient com plains of decreased vision in the right eye. It started about 1 month ago . The onset was sudden. It affects both near and far vision. The symptom is constant. It occurs when focusing. In addition, the condition is associated with daily activity and chores. referred for SRNV The 54 year ol d female presents for evaluation of referred for SRNV in the right eye. [facility] Work Phone: [phone] Instructions* Date Instruction Additional Infor mikhail Impression/Plan Related to 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 Impression/Plan Related to Age-r elated nuclear cataract of both eyes Impression/Plan Related to 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 Impression/Plan Related to PVD ( posterior vitreous detachment), both eyes Impression/Plan Related to Early dry stage nonexudative age-related macular degeneration of left eye Return PRN Related to Retin al neovascularization, unspecified, right eye Follow up - Return PRN Related t o Retinal neovascularization, unspecified, right eye Impression/Plan - Re gular follow up appointments with the patient's comprehensive eye doctor were recommended to monitor the patients cataract for progression. Referral for surgical intervention is not indicated at this time. Related to Age-related nuclear cataract, bilateral Impression/Plan - Se condary to choroidal neovasculaization. 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 There is no evidence of a retinal tear, break or detachment. Patient instructed to call the office immediately if any symptoms noted. Related to Vitreous degeneration, right eye Impression/Plan - No evidence of recurrent Idiopathic Choroidal Neovascularization noted on examination and testing. The patient has a history anti-VEGF Avastin treatments in 2014; no further treatment is indicated today. Will continue to monitor. The patient will return to Dr. Woodson for ongoing eye care and to A on an as needed basis. The patient was instructed to call immediately if any progressive central or peripheral vision loss, new distortion, or other ophthalmic symptoms develop. Related to Retinal neovascularization, unspecified, right eye Return in 8-[address] Hodges for follow up exam and OCT. Related to Retinal neovascularization, unspecified, right eye Impression/Plan - No t affecting vision, referral for surgical intervention is not indicated at this time. Related to Age-related nuclear cataract, bilateral Impression/Plan - Th ere is no evidence of a retinal tear, break or detachment. Related to Vitreous degeneration, right eye Impression/Plan - Ba sed on today's clinical and diagnostic testing ther is no evidence of recurrent Idiopathic Choroidal Neovascularization. The patient was treated with anti-VEGF Avastin treatments, and no further treatment is indicated today. Will continue to monitor. Advised patient to call [facility] with vision changes or the onset of pain. Related to Retinal neovascularization, unspecified, right eye Follow up - Return i n 8-[address] Hodges for follow up exam and OCT. Related to Retinal neovascularization, unspecified, right eye Impression/Plan - No recurrent edema was noted on today's clinical or diagnostic testing. See plan #1 Related to Retinal edema - Based on today's c linical and diagnostic testing, resolved Idiopathic Choroidal Neovascularization was noted and discussed with the patient. The patient has responded well to the antiVEGF treatments, and no treatment is indicated today. Will continue to monitor. Advised patient to call [facility] with vision changes or the onset of pain. Related to Retinal neovascularization, unspecified, right eye - Regular follow up appointments with the patient's comprehensive eye doctor were recommended to monitor the patients cataract for progression. Referral for surgical intervention is not indicated at this time. Related to Age-related nuclear cataract, bilateral - There is no eviden ce of a retinal tear, break or detachment. Appropriate follow up with primary eye healthcare associate was recommended. Related to Vitreous degeneration, right eye - Return in [address] Hodges for follow up exam with OCT. Related to Retinal neovascularization, unspecified, right eye - No recurrent edema was noted on today's clinical or diagnostic testing. See plan #1 Related to Retinal edema - Based on today's c linical and diagnostic testing, resolved Idiopathic Choroidal Neovascularization was noted and discussed with the patient. The patient has responded well to the antiVEGF treatments and no treatment is indicated today, the patient agrees. Will continue to monitor. Advised patient to call [facility] with vision changes or the onset of pain. Related to Retinal neovascularization, unspecified, right eye - Return in [address] Hodges for follow up exam with OCT. Related to Retinal neovascularization, unspecified, right eye - Not significantly affecting vi kelvin. Related to Age-related nuclear cataract, bilateral - There is no eviden ce of a retinal tear, break or detachment. Appropriate follow up with primary eye healthcare associate was recommended. Related to Vitreous degeneration, right eye - No recurrent edema was noted on today's clinical or diagnostic testing. See plan #1 Related to Retinal edema - Not significantly affecting vi kelvin. Related to Age-related nuclear cataract, bilateral - Secondary to Idiop athic CNV. See plan #1 Related to Retinal edema - Based on today's c linical and diagnostic testing, improved Idiopathic Choroidal Neovascularization was noted. The patient has responded well to the antiVEGF treatment. Recommend repeat intravitreal Avastin therapy. Risks, benefits, and alternatives discussed. Patient agreed to treatment and tolerated the procedure well today. Advised patient to call [facility] with vision changes or the onset of pain. Related to Retinal neovascularization, unspecified, right eye - Return in [address] Hodges for eval, OCT and possible Avastin injection. Related to Retinal neovascularization, unspecified, right eye - There is no eviden ce of a retinal tear, break or detachment. Appropriate follow up with primary eye healthcare associate was recommended. Related to Vitreous degeneration, right eye - There is no eviden ce of a retinal tear, break or detachment. Related to PVD (Vitreous degeneration) - Secondary to Idiop athic CNV. See plan #1 Related to Retinal edema - Not affecting visi on at this time. Will continue to monitor for progression. Related to Senile nuclear sclerosis - Based on today's c linical and diagnostic testing, improved Idiopathic Choroidal Neovascularization was noted. The patient has responded well to the antiVEGF treatment. 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 This may improve over time. Recommend repeat intravitreal Avastin therapy. Risks, benefits, and alternatives discussed. Patient agreed to treatment and tolerated the procedure well today. Advised patient to call [facility] with vision changes or the onset of pain. Related to CNV-Choroidal neovascularisation - Return in [address] Hodges for follow up exam with OCT. Related to CNV-Choroidal neovascularisation - Not affecting visi on at this time. Monitor. Related to Senile nuclear sclerosis - Based on today's c linical and diagnostic testing, inactive Idiopathic Choroidal Neovascularization was noted. Patient has responded well ariel antiVEGF treatment and no further treatment is needed. Will continue to monitor. Related to CNV-Choroidal neovascularisation - Return in [address] Hodges for follow up exam with OCT. Related to CNV-Choroidal neovascularisation - There is no eviden ce of a retinal tear, break or detachment. Related to PVD (Vitreous degeneration) - Secondary to Idiop athic CNV. See plan #1 Related to Retinal edema - Posterior vitreous detachment was noted on examination today and explained to the patient. There is no evidence of a retinal tear, break or detachment. Related to PVD (Vitreous degeneration) - Secondary to Idiop athic CNV. See plan #1 Related to Retinal edema - *Based on today's clinical and diagnostic testing, additional antiVEGF treatment for Idiopathic Choroidal Neovascularization was recommended and explained to the patient. Decreased edema and hemorrhage noted on examination and testing today. The risks, benefits, and alternatives were discussed. The goal of a treat and extend regimen was explained and will be implemented as long as good treatment response and resolution of subretinal blood and subretinal fluid and/or subRPE fluid is observed. The off-label status of Avastin and use of a compounding pharmacy was discussed. The patient chose to proceed and received an intravitreal injection of Avastin today. The patient tolerated the procedure well and has been instructed to call immediately with the onset of severe pain, non-watery discharge or visual loss. She was advised to follow an Amsler grid daily. Related to CNV-Choroidal neovascularisation - Return in [address] Hodges for follow up exam with OCT. The need for additional Avastin will be determined at that time. Related to CNV-Choroidal neovascularisation - The progression of cataracts was noted on examination today and discussed with the patient. Not affecting vision at this time. Related to Senile nuclear sclerosis - Return in [address] Hodges for follow up exam with FA. The need for additional Avastin OD will be determined at that time. Related to CNV-Choroidal neovascularisation - Based on today's c linical and diagnostic testing, initial antiVEGF treatment for Idiopathic Choroidal Neovascularization was recommended and explained to the patient. The risks, benefits, and alternatives were discussed. The patient understands that the initial regimen will consist of a series of monthly injections. The goal of a treat and extend regimen was explained and will be implemented as long as good treatment response and resolution of subretinal blood and subretinal fluid and/or subRPE fluid is observed. The off-label status of Avastin and use of a compounding pharmacy was discussed. The patient chose to proceed and received an intravitreal injection of Avastin today. The patient tolerated the procedure well and has been instructed to call immediately with the onset of severe pain, non-watery discharge or visual loss. She was advised to follow an Amsler grid daily. Educational materials provided:Amsler grid. Related to CNV-Choroidal neovascularisation - Secondary to Idiop athic CNV. See plan #1 Related to Retinal edema - The progression of cataracts was noted on examination today and discussed with the patient. Not affecting vision at this time. Related to Senile nuclear sclerosis - Posterior vitreous detachment was noted on examination today and explained to the patient. There is no evidence of a retinal tear, break or detachment. 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 Right assessment Early dry stage none xudative age-related macular degeneration of left eye impression Early dry stage none xudative age-related macular degeneration of left eye: H35.3121. Left assessment PVD (posterior vitreous detachme nt), both eyes impression PVD (posterior vitre ous detachment), both eyes: H43.813. Bilateral assessment Age-related nuclear cataract of both eyes impression Age-related nuclear cataract of both eyes: H25.13. Bilateral [facility] Work Phone: [phone] History of Present illness Narrative* Encounter Date Complaint History Of Prese nt Illness macular degeneration The 64 year old female presents for New Patient evaluation of macular degeneration in the right and left eyes. Patient states she has a blurry spot in her right eye. Patient states that she first noticed the issue about a month ago. Patient states she has always had floaters, the come and go, patient denies any flashes of light. reports no visual changes The art simon reports no visual changes in the right eye and left eye since her last visit 9 months ago. It affects both near and far vision. The symptom is constant. The condition is stable. In addition, the condition is associated with daily activity and chores. The patient denies flashes, eye pain. retinal neovasculari zation with edema The 57 year old female presents for evaluation of retinal neovascularization with edema in the right eye. stable vision The patient note s of stable vision in both eyes since her last visit about 6 months ago. It affects both near and far vision. The symptom is constant. It occurs all the time. In addition, the condition is associated with daily activity and chores. The patient denies change in vision, eye pain, flashes. CNV The 56 year old female presents for evaluation of CNV in the right eye. trouble focusing The patient com plains of trouble focusing in the right eye. It started about 4 months ago . It affects both near and far vision. The symptom is constant. It occurs persistently. The condition is not any better. In addition, the condition is associated with daily activity and chores. CNV The 56 year old female presents for evaluation of CNV in the right eye. stable vision The patient comp lains of stable vision in the left eye. stable vision without distortion The patient complains of stable vision without distortion in the right eye. It started about 3 months ago. The onset was progressive. It affects OU. The symptom is constant. It occurs when focusing. The condition is limiting patient's ability to read. The condition is described as fuzzy vision. In addition, the condition is associated with daily activity and chores. CNV The 55 Years old female presents for evaluation of CNV in the right eye. reports no vision changes The art aurora reports no vision changes in the right eye and left eye since last visit 2 months ago . It affects both near and far vision. The symptom is constant. It occurs when focusing. The condition is stable. CNV The 55 year old female presents for evaluation of CNV in the right eye. trouble focusing The patient com plains of trouble focusing still with her right eye open. She frequently closes her right eye to avoid double vision and to see better with the left eye only. The symptoms are worse when driving at night with lights and in the daytime with bright lights around her. The symptoms may be slightly improved since her last visit or over the last one month or so. No eye pain but she feels her eye strain is causing occasional headaches. SRNVM This 55 year old female presents for evaluation of SRNVM in the right eye. increase in vision The patient r eports of an increase in vision in the right eye. It started about 7 weeks ago . The onset was gradual. It affects near vision. The symptom is constant. The condition is improving. In addition, the condition is associated with all activity. CNV with retinal edema The 55 ye ar old female presents for an evaluation of CNV with retinal edema in the right eye. no changes The patient comp lains of no changes in the right eye. It started about 5 weeks ago . It affects both near and far vision. The condition is not any better. In addition, the condition is associated with daily activity and chores. The patient denies change in vision. CNV The 55 Years old female presents for evaluation of CNV in the right eye. decreased vision The patient com plains of decreased vision in the right eye. It started about 1 month ago . The onset was sudden. It affects both near and far vision. The symptom is constant. It occurs when focusing. In addition, the condition is associated with daily activity and chores. referred for SRNV The 54 year ol d female presents for evaluation of referred for SRNV in the right eye. [facility] Work Phone: [phone] Instructions* Date Instruction Additional Infor mikhail Impression/Plan Related to Age-r elated nuclear cataract of both eyes Impression/Plan Related to 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 Impression/Plan Related to PVD ( posterior vitreous detachment), both eyes Impression/Plan Related to Early dry stage nonexudative age-related macular degeneration of left eye Return PRN Related to Retin al neovascularization, unspecified, right eye Follow up - Return PRN Related t o Retinal neovascularization, unspecified, right eye Impression/Plan - Re gular follow up appointments with the patient's comprehensive eye doctor were recommended to monitor the patients cataract for progression. Referral for surgical intervention is not indicated at this time. Related to Age-related nuclear cataract, bilateral Impression/Plan - Se condary to choroidal neovasculaization. 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 There is no evidence of a retinal tear, break or detachment. Patient instructed to call the office immediately if any symptoms noted. Related to Vitreous degeneration, right eye Impression/Plan - No evidence of recurrent Idiopathic Choroidal Neovascularization noted on examination and testing. The patient has a history anti-VEGF Avastin treatments in 2014; no further treatment is indicated today. Will continue to monitor. The patient will return to Dr. Woodson for ongoing eye care and to A on an as needed basis. The patient was instructed to call immediately if any progressive central or peripheral vision loss, new distortion, or other ophthalmic symptoms develop. Related to Retinal neovascularization, unspecified, right eye Return in 8-[address] Hodges for follow up exam and OCT. Related to Retinal neovascularization, unspecified, right eye Impression/Plan - No t affecting vision, referral for surgical intervention is not indicated at this time. Related to Age-related nuclear cataract, bilateral Impression/Plan - Th ere is no evidence of a retinal tear, break or detachment. Related to Vitreous degeneration, right eye Impression/Plan - No recurrent edema was noted on today's clinical or diagnostic testing. See plan #1 Related to Retinal edema Impression/Plan - Ba sed on today's clinical and diagnostic testing ther is no evidence of recurrent Idiopathic Choroidal Neovascularization. The patient was treated with anti-VEGF Avastin treatments, and no further treatment is indicated today. Will continue to monitor. Advised patient to call [facility] with vision changes or the onset of pain. Related to Retinal neovascularization, unspecified, right eye Follow up - Return i n 8-[address] Hodges for follow up exam and OCT. Related to Retinal neovascularization, unspecified, right eye - Based on today's c linical and diagnostic testing, resolved Idiopathic Choroidal Neovascularization was noted and discussed with the patient. The patient has responded well to the antiVEGF treatments, and no treatment is indicated today. Will continue to monitor. Advised patient to call [facility] with vision changes or the onset of pain. Related to Retinal neovascularization, unspecified, right eye - Regular follow up appointments with the patient's comprehensive eye doctor were recommended to monitor the patients cataract for progression. Referral for surgical intervention is not indicated at this time. Related to Age-related nuclear cataract, bilateral - There is no eviden ce of a retinal tear, break or detachment. Appropriate follow up with primary eye healthcare associate was recommended. Related to Vitreous degeneration, right eye - Return in [address] Hodges for follow up exam with OCT. Related to Retinal neovascularization, unspecified, right eye - No recurrent edema was noted on today's clinical or diagnostic testing. See plan #1 Related to Retinal edema - Return in [address] Hodges for follow up exam with OCT. Related to Retinal neovascularization, unspecified, right eye - Not significantly affecting vi kelvin. Related to Age-related nuclear cataract, bilateral - There is no eviden ce of a retinal tear, break or detachment. Appropriate follow up with primary eye healthcare associate was recommended. Related to Vitreous degeneration, right eye - No recurrent edema was noted on today's clinical or diagnostic testing. See plan #1 Related to Retinal edema - Based on today's c linical and diagnostic testing, resolved Idiopathic Choroidal Neovascularization was noted and discussed with the patient. The patient has responded well to the antiVEGF treatments and no treatment is indicated today, the patient agrees. Will continue to monitor. Advised patient to call [facility] with vision changes or the onset of pain. 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 See plan #1 Related to Retinal edema - Based on today's c linical and diagnostic testing, improved Idiopathic Choroidal Neovascularization was noted. The patient has responded well to the antiVEGF treatment. Recommend repeat intravitreal Avastin therapy. Risks, benefits, and alternatives discussed. Patient agreed to treatment and tolerated the procedure well today. Advised patient to call [facility] with vision changes or the onset of pain. Related to Retinal neovascularization, unspecified, right eye - Return in [address] Hodges for eval, OCT and possible Avastin injection. Related to Retinal neovascularization, unspecified, right eye - There is no eviden ce of a retinal tear, break or detachment. Appropriate follow up with primary eye healthcare associate was recommended. Related to Vitreous degeneration, right eye - Not significantly affecting vi kelvin. Related to Age-related nuclear cataract, bilateral - Not affecting visi on at this time. Will continue to monitor for progression. Related to Senile nuclear sclerosis - Based on today's c linical and diagnostic testing, improved Idiopathic Choroidal Neovascularization was noted. The patient has responded well to the antiVEGF treatment. 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 This may improve over time. Recommend repeat intravitreal Avastin therapy. Risks, benefits, and alternatives discussed. Patient agreed to treatment and tolerated the procedure well today. Advised patient to call [facility] with vision changes or the onset of pain. Related to CNV-Choroidal neovascularisation - Return in [address] Hodges for follow up exam with OCT. Related to CNV-Choroidal neovascularisation - There is no eviden ce of a retinal tear, break or detachment. Related to PVD (Vitreous degeneration) - Secondary to Idiop athic CNV. See plan #1 Related to Retinal edema - Based on today's c linical and diagnostic testing, inactive Idiopathic Choroidal Neovascularization was noted. Patient has responded well ariel antiVEGF treatment and no further treatment is needed. Will continue to monitor. Related to CNV-Choroidal neovascularisation - Return in [address] Hodges for follow up exam with OCT. Related to CNV-Choroidal neovascularisation - There is no eviden ce of a retinal tear, break or detachment. Related to PVD (Vitreous degeneration) - Secondary to Idiop athic CNV. See plan #1 Related to Retinal edema - Not affecting visi on at this time. Monitor. Related to Senile nuclear sclerosis - The progression of cataracts was noted on examination today and discussed with the patient. Not affecting vision at this time. Related to Senile nuclear sclerosis - Posterior vitreous detachment was noted on examination today and explained to the patient. There is no evidence of a retinal tear, break or detachment. Related to PVD (Vitreous degeneration) - Secondary to Idiop athic CNV. See plan #1 Related to Retinal edema - *Based on today's clinical and diagnostic testing, additional antiVEGF treatment for Idiopathic Choroidal Neovascularization was recommended and explained to the patient. Decreased edema and hemorrhage noted on examination and testing today. The risks, benefits, and alternatives were discussed. The goal of a treat and extend regimen was explained and will be implemented as long as good treatment response and resolution of subretinal blood and subretinal fluid and/or subRPE fluid is observed. The off-label status of Avastin and use of a compounding pharmacy was discussed. The patient chose to proceed and received an intravitreal injection of Avastin today. The patient tolerated the procedure well and has been instructed to call immediately with the onset of severe pain, non-watery discharge or visual loss. She was advised to follow an Amsler grid daily. Related to CNV-Choroidal neovascularisation - Return in [address] Hodges for follow up exam with OCT. The need for additional Avastin will be determined at that time. Related to CNV-Choroidal neovascularisation - Based on today's c linical and diagnostic testing, initial antiVEGF treatment for Idiopathic Choroidal Neovascularization was recommended and explained to the patient. The risks, benefits, and alternatives were discussed. The patient understands that the initial regimen will consist of a series of monthly injections. The goal of a treat and extend regimen was explained and will be implemented as long as good treatment response and resolution of subretinal blood and subretinal fluid and/or subRPE fluid is observed. The off-label status of Avastin and use of a compounding pharmacy was discussed. The patient chose to proceed and received an intravitreal injection of Avastin today. The patient tolerated the procedure well and has been instructed to call immediately with the onset of severe pain, non-watery discharge or visual loss. She was advised to follow an Amsler grid daily. Educational materials provided:Amsler grid. Related to CNV-Choroidal neovascularisation - Secondary to Idiop athic CNV. See plan #1 Related to Retinal edema - The progression of cataracts was noted on examination today and discussed with the patient. Not affecting vision at this time. Related to Senile nuclear sclerosis - Posterior vitreous detachment was noted on examination today and explained to the patient. There is no evidence of a retinal tear, break or detachment. Related to PVD (Vitreous degeneration) - Return in [address] Hodges for follow up exam with FA. The need for additional Avastin OD will be determined at that time. Related to CNV-Choroidal neovascularisation [facility] Work Phone: 1(226) 578-856306-04-2024 Evaluation note* Author [facility]ne [facility] 2023 3:36pmThe above note written by Shyanne MONTES acting as human recorder, note dictated by Dr. Fercho Wesley. Author Dayna Mercado [facility] 2023 2:20pmSooner if needed, the ER if concerns,The above note written by Dayna Mercado LPN acting as human recorder, note dictated by Dr. Fercho Wesley [facility] Work Phone: 1(515) 250-886203-07-2024 Evaluation note* Author Paula Franks [facility] 2023 1:47pmThe above note written by JYOTI Shay acting as human recorder, note dictated by Dr. Fercho Wesley . [facility] Work Phone: 1(395) 742-492103-07-2024 Evaluation note* Author Paula Franks [facility] 2023 1:47pmThe above note written by JYOTI Shay acting as human recorder, note dictated by Dr. Fercho Wesley . Author [facility] 2023 3:36pmThe above note written by Shyanne MONTES acting as human recorder, note dictated by Dr. Fercho Wesley. [facility] Work Phone: 1(585) 585-446712-18-2023 Evaluation note* Encounter Date Diagnosis Assessment Notes Treatment Notes Treatment Clinical Notes Jul, Hyperlipidemia, unspecified hype rlipidemia type (ICD-10 - E78.5) Jul,Elevated liver enzymes (ICD-10 - R74.8) Jul,Right upper quadrant pain (ICD-10 - R10.11) [employer] Other 12-05-2023 Evaluation note* Encounter Date Diagnosis Assessment Notes Treatment Notes Treatment Clinical Notes Jul, Wellness examination (ICD-10 - Z 00.00) Personalized health advice was given to the beneficiary to health education of preventative counseling services or programs aimed at reducing identified risk factors and improving self-management or community-based lifestyle interventions to reduce health risks and promote self-management and wellness, including physical activity and nutrition. A written plan for screenings was discussed, flu vaccination, routine lab studies, eye exams, as well as risk factors for other medical problems. Jul,Hyperlipidemia, unspecified hyperlipidemia type (ICD-10 - E78.5) Pt's blood work does reveal elevated cholesterol. Information on decreasing cholesterol in the dietprovided to pt today. Encouraged to watch diet and increase exercise regimen; we will continue to monitor. Jul,Elevated liver enzymes (ICD-10 - R74.8) Review of pt's blood work reveals elevated liver enzymes. The above labs and imaging ordered to further investigate this. Jul,Screening for colon cancer (ICD-10 - Z12.11) Cologuard ordered today. Jul,Family history of pancreatic cancer (ICD-10 - Z80.0) Pt states her father had pancreatic cancer, but that he of another illness right after being diagnosed. Jul,Right upper quadrant abdominal pain (ICD-10 - R10.11) Pt c/o RUQ pain. The above imaging ordered to investigate this. Jul,Left ear impacted cerumen (ICD-10 - H61.22) Pt does c/o feeling impacted in her ears. Upon examination, her left ear is completely impacted with cerumen. Ear lavage performed today, which pt tolerated well. I was unable to remove this cerumen today. She is to treat with a 1:1 water:hydrogen peroxide mixture a few times a day for a week. If this does not resolve, we can see her again for another lavage. [employer] Other 11-13-2023 Evaluation note* Encounter Date Diagnosis Assessment Notes Treatment Notes Treatment Clinical Notes Jun, Hyperlipidemia, unspecified hype rlipidemia type (ICD-10 - E78.5) Jun,Hyperglycemia (ICD-10 - R73.9) Jun,Vitamin D deficiency (ICD-10 - E55.9) [employer] Other 03-27-2023 Evaluation note* Encounter Date Diagnosis Assessment Notes Treatment Notes Treatment Clinical Notes Oct, Acute cough (ICD-10 - R05.1) Results were discussed with patient and physician. See telephone encounter for further clinical documentation [employer] Other 06-24-2021 NotePROCEDURE: XR KNEE ANDRÉS 4V or > HISTORY: Pain of knee region COMPARISON: None. FINDINGS: BONES:Moderate degenerative osteophytes along the medial and lateral articular margins of the right knee. No significant joint space narrowing bilaterally. No fracture, dislocation, bone lesion. SOFT TISSUES:No visible soft tissue swelling. EFFUSION:None visible. OTHER: Negative. IMPRESSION: 1. No acute bone abnormality. 2. Mild degenerative changes of the right knee. Unremarkable left knee. Electronically authenticated by: HUMZA MIR Date: 2021-02-09 14:00[facility]06-24-2021 NotePROCEDURE: XR ANKLE RT MIN 3 VIEWS, XR FOOT RT MIN 3 VIEWS HISTORY: Effusion of joint of right ankle ; chronic right ankle and foot pain without injury, numbness, lump COMPARISON: None. FINDINGS: BONES:Mild degenerative changes along the dorsal margin of the midfoot and involving the first metatarsophalangeal joint. Prominent degenerative enthesophytes at the Achilles tendon and plantar aponeurosis insertions into the calcaneus. No fracture, dislocation, or bone lesion. SOFT TISSUES:Mild soft tissue thickening over the dorsal midfoot which corresponds to the skin surface marker. EFFUSION:None visible. OTHER: Negative. IMPRESSION: 1. Mild degenerative changes, nonspecific. 2. Mild soft tissue swelling over the dorsum of the midfoot of uncertain etiology. No visible mass or radiopaque foreign body. Electronically authenticated by: HUMZA MIR Date: 2021-02-09 13:58[facility]06-24-2021 NotePROCEDURE: XR ANKLE RT MIN 3 VIEWS, XR FOOT RT MIN 3 VIEWS HISTORY: Effusion of joint of right ankle ; chronic right ankle and foot pain without injury, numbness, lump COMPARISON: None. FINDINGS: BONES:Mild degenerative changes along the dorsal margin of the midfoot and involving the first metatarsophalangeal joint. Prominent degenerative enthesophytes at the Achilles tendon and plantar aponeurosis insertions into the calcaneus. No fracture, dislocation, or bone lesion. SOFT TISSUES:Mild soft tissue thickening over the dorsal midfoot which corresponds to the skin surface marker. EFFUSION:None visible. OTHER: Negative. IMPRESSION: 1. Mild degenerative changes, nonspecific. 2. Mild soft tissue swelling over the dorsum of the midfoot of uncertain etiology. No visible mass or radiopaque foreign body. Electronically authenticated by: HUMZA MIR Date: 2021-02-09 13:58[facility] note* Clinical Note Date No Information [facility] Work Phone: Discharge summary* Clinical Note Date No Information [facility] Work Phone: Evaluation noteNo assessment information available [facility] Work Phone: Evaluation note* Type Assessment Date No Information [facility] Work Phone: Evaluation note* Author Shyanne Nunez [facility] IncAuthoredNov[facility] 2024 1:01pmThe above note written by Shyanne MONTES acting as human recorder, note dictated by Dr. Fercho Wesley. [facility] Work Phone: History and physical note* Clinical Note Date No Information [facility] Work Phone: History general Narrative - Reported* Type Description Date Medical History Back or Neck Problems Medical HistoryChickenpoxMedical HistoryCough or Shortness of BreathMedical HistoryMumpsMedical XvtacsaMmulxxkoc-29-Ff. McLaughtin, 2007Medical History Pap--Dr. Love, Pap 2007Medical XbgmkyhPWT-14-12-07Medical Historyfollows with Dr. Marshall for PAP and mammogramMedical History04/2013-refused colonoscopy Medical HistoryAbnormal EKGMedical HistoryAbnormal EKGMedical Enfosjl90/14/19 EKGSurgical RphhgpsYiltdpiabqnm7447Ookrtelc Historyleft Shoulder surgery/ Dr. Eamon Bowser12/2019Surgical HistoryRight shoulder surgery/ Dr. Eamon Bowser07/2020 Hospitalization Historysee surgical [employer] Other History general Narrative - Reported* Type Description Date Medical History Chickenpox Medical HistoryCough or Shortness of BreathMedical HistoryMumpsMedical History Eckzkhttw-76-Eg. McLaughtin, 2008Medical HistoryBack or Neck ProblemsMedical WotpzhrTpo-69-Fz. McLaughtin, Pap 2007Medical GgajtcuCTV-31-31-07Medical History follows with Dr. Marshall for PAP and mammogramMedical History04/2013-refused colonoscopyMedical HistoryAbnormal EKGMedical HistoryAbnormal EKGMedical History 06/01/19 EKGMedical Oitkfmq90/05/23 Refuses mammogramSurgical History Eqmksppazekl8538Lzkfbnzy Historyleft Shoulder surgery/ Dr. aEmon Bowser12/2019 Surgical HistoryRight shoulder surgery/ Dr. 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 Time Frame: 06/29/25, Location: None [facility] Work Phone: Progress note* Clinical Note Date No Information [facility] Work Phone: Reason for referral (narrative)* Reason For Referral No Information [facility] Work Phone: Summary Purpose Family History Relationship Condition Age at Onset Recorded Date/T roger father Family history of pancreatic cancer Unkno wn DeceasedUnknownNot SpecifiedHistory of malignant neoplasm of skinUnknown HypertensionUnknownMalignant neoplasmUnknownDisorder of kidneyUnknownsisterMotor vehicle accidentUnknown Relationship Condition Age at Onset Recorded Date/T roger father Family history of pancreatic cancer Unkno wn DeceasedUnknownmotherHistory of malignant neoplasm of skinUnknownHypertension UnknownMalignant neoplasmUnknownDisorder of kidneyUnknownsisterMotor vehicle accidentUnknown Family Member Type Diagnosis Age At Onset Mother Problem Macular degenera tion Problem (finding)Family history of hypertensionProblem (finding)Family history of cataract Advance Directives Advance Directive Response Recorded Date/ Time Advance Directives No August 26, 2019 4:02pm Advance Directive Response Recorded Date/ Time Advance Directives No August 26, 2019 5:02pm Directive Yes / No Effective Date File Name No Information Advance Directive Response Recorded Date/ Time Advance Directives No June 8:25am Procedure Findings Note Patient: MELIZA BEST Age: 60 years Sex: Female : 1960 Associated Diagnoses: None Author: Antoine Cline Jr, DO Postoperative Information Post Operative Note: Post Anesthesia Care Unit. Anesthetic utilized: General. Health Status Allergies: Allergic Reactions (Selected) No Known Allergies Problem list: All Problems Right rotator cuff tear / SNOMED CT 9700455839 / Confirmed Left rotator cuff tear / SNOMED CT 4647890 / Confirmed Physical Examination Vital Signs 01/08/2020 18:58 EDT Temperature Oral 36.6 DegC Heart Rate Monitored 97 bpm Respiratory Rate 16 br/min Systolic Blood Pressure 121 mmHg Diastolic Blood Pressure 69 mmHg Blood Pressure Location Right arm Mean Arterial Pressure, Cuff 86 mmHg SpO2 98 % BP/Pulse Patient Position Sitting 01/08/2020 18:09 EDT Heart Rate Monitored 105 bpm HI Respiratory Rate 16 br/min Systolic Blood Pressure 126 mmHg Diastolic Blood Pressure 73 mmHg Blood Pressure Location Right arm Mean Arterial Pressure, Monitered 9 (more content not included)... Note Patient: MELIZA BEST Age: 60 years Sex: Female : 1960 Associated Diagnoses: None Author: Tony Dutta MD Postoperative Information Post Operative Note: Post Anesthesia Care Unit. Anesthetic utilized: General. Regional: Interscalene Block. Health Status Allergies: Allergic Reactions (All) No Known Allergies Problem list: All Problems Right rotator cuff tear / SNOMED CT 7707328939 / Confirmed Left rotator cuff tear / SNOMED CT 7931376 / Confirmed Physical Examination Intake and Output adequate hydration Pain assessment: Self-reports no pain. General: Alert and oriented, No acute distress. HENT: Oral mucosa is moist, dentition unchanged. Respiratory: Respirations: Are within normal limits. Pattern: Regular. Cardiovascular: Normal rate. Neurologic: Alert, Oriented. Review / Management Lines and Tubes: Peripheral catheter. ECG interpretation: Within normal limits. Condition: Stable. Assessment Anesthetic outcome No anesthetic complications noted. A (more content not included)... Chief Complaint and Reason for Visit Chief Complaint r73.9 e78.5 e55.9 E78.5 R74.8 R10.11 Chief Complaint E78.5 K74.8 3 MONTH FOLLOW UP adipexReason for VisitHepatic steatosis Hyperlipidemia Obesity (BMI 30.0-34.9) Rash Right upper quadrant pain Screening for breast cancer BMI 29.0-29.9,adult Obesity Chief Complaint 3 MONTH FOLLOW UP adipex 1 month- 1 monthReason for VisitHepatic steatosis Hyperlipidemia Obesity (BMI 30.0-34.9) Rash Right upper quadrant pain Screening for breast cancer BMI 29.0-29.9,adult Obesity BMI 28.0-28.9,adult Obesity Obesity Neoplasm of uncertain behavior of skin BMI 27.0-27.9,adult Chief Complaint adipex 1 month- 1 month 1 month adipexReason for VisitBMI 29.0-29.9,adult Obesity BMI 28.0-28.9,adult Obesity Obesity Neoplasm of uncertain behavior of skin BMI 27.0-27.9,adult Body mass index (BMI) of 27.0 to 27.9 in adult Hyperglycemia Hyperlipidemia Obesity Vitamin D deficiency Chief Complaint Admit Date drainage and coughing June 29 12:55pm Reason for Visit Admit Date Gynecological complaint June 29 025 12:55pm Cough June 29, 2025 12:55pm Additional Source Comments INFORMATION SOURCE (unrecogn ized section and content) DATE CREATED AUTHOR 07/29/2020 [facility] DATE CREATED AUTHOR AUTHOR'S ORGANIZ ATION 11/01/2021 [facility] DATE CREATED AUTHOR AUTHOR'S ORGANIZ ATION 10/[facility]2023 [facility] [facility] DATE CREATED AUTHOR AUTHOR'S ORGANIZ ATION 06/01/2025 [facility] REASON FOR VISIT (unrecogniz ed section and content) congestion, coughClinicalWEL LNESSCT denial Care Teams (unrecognized sec tion and content) Team Status: Active Member Role Status Dates Fercho Wesley , Primary Care Provider Active Team Status: Inactive Member Role Status Dates Fercho Wesley , DO Primary Care Provider, Attending Provi carlos Active Team Status: Inactive Member Role Status Dates Fercho Nickersonsho , DO Primary Care Provide r, Attending Provider Active Start: October 18, 2023 End: October 18, 2023 Team Status: Inactive Member Role Status Dates Fercho Wesley , DO Primary Care Provide r, Attending Provider Active Start: October 24, 2023 End: October 24, 2023 Team Status: Inactive Member Role Status Dates Fercho Wesley , DO Primary Care Provide r, Attending Provider Active Start: November 21, 2023 End: November 21, 2023 Team Status: Inactive Member Role Status Dates Fercho Wesley , DO Primary Care Provide r, Attending Provider Active Start: December 19, 2023 End: December 19, 2023 Team Status: Inactive Member Role Status Dates Fercho Wesley DO Primary Care Provide r, Attending Provider Active Start: January 21, 2024 End: January 21, 2024 Team Status: Inactive Member Role Status Dates Ferchofarzad Wesley , DO Primary Care Provide r, Attending Provider Active Start: February 18, 2024 End: February 18, 2024 Name Effective Dates (start - stop) Status Members No Information Team Status: Active Member Role/Relationship Status Jacob Wesley DO Primary Care Provider Active Team Status: Inactive Member Role/Relationship Status Dates Ferchofarzad Wesley DO Primary Care Provider Active Sta rt: June 29, 2025 End: June 29ryfarzad Wesley DOAttending ProviderActiveStart: June 29, 2025 End: June 29, 2025 Goals (unrecognized section and content) Goals may be documented in a n alternate section FOR RECORDS PERTAINING TO PATIENTS WHO ARE OR HAVE BEEN ENROLLED IN A CHEMICAL DEPENDENCY/SUBSTANCEABUSE PROGRAM, SOME INFORMATION MAY BE OMITTED. This clinical summary was aggregated from multiple sources. Caution should be exercised in using it in the provision of clinical care. This summary normalizes information from multiple sources, and as a consequence, information in this document may materially change the coding, format and clinical context of patient data. In addition, data may be omitted in some cases. CLINICAL DECISIONS SHOULD BE BASED ON THE PRIMARY CLINICAL RECORDS. [facility]. provides no warranty or guarantee of the accuracy or completeness of information in this document.
== END 2025-07-29 09:33 | disposition home or self-care (01) ==
LOC: MAMMO 09:32
PROVIDERS: PCP Family Medicine; Visit Provider Obstetrics & Gynecology
DX: Z12.31 Encounter for screening mammogram for malignant neoplasm of breast (principal); Z80.8 Family history of malignant neoplasm of other organs or systems
CPT/HCPCS: 77063; 77067